=== PATIENT | male | born 1940 | race Caucasian/White ===

== ENCOUNTER 2019-07-06 14:09 | Outpatient (CLI) | payer MEDICARE, OTHER ==
--- NOTE | 2019-07-07 14:54 | Ultrasound Report ---
Reason: STAGE 3 KIDNEY DISEASE, URINE RETENTION Procedure Date: 07/06/2019 Accession Number: [id number] / [id number] Procedure: US - Retroperitoneal CPT Code: FULL RESULT: EXAM: RENAL ULTRASOUND EXAM DATE: 07/06/2019 03:38 PM. CLINICAL HISTORY: Stage 3 kidney disease, urine retention. COMPARISON: None. TECHNIQUE: Real-time scanning was performed with static images obtained. FINDINGS: Right Kidney: 10.6 x 5.5 x 5.8 cm. Echogenic renal cortex. No contour deforming mass, stones or hydronephrosis.1.1 x 1 x 1.2 cm mid lateral right renal anechoic cyst. No wall irregularities, mural nodules or thickened septations. Left Kidney: 10.9 x 5.2 x 6.4 cm. Echogenic renal cortex. No contour deforming mass, stones or hydronephrosis. Bladder: Bilateral jets seen. The prevoid bladder volume was 32.1 cc. The postvoid bladder volume was 0 cc. Other: None. IMPRESSION: 1. No renal mass, stone or hydronephrosis. 2. Echogenic renal cortex noted. Findings are nonspecific but can be associated with chronic medical renal disease. Correlate clinically. 3. 1.1 x 1.0 x 1.2 cm anechoic right mid renal cyst. 4. Normal bladder. RADIA
== END 2019-07-06 14:10 | disposition home or self-care (01) ==
LOC: DI 14:09
PROVIDERS: ATTEND Internal Medicine Nephrology
DX: N28.1 Cyst of kidney, acquired (principal); N32.0 Bladder-neck obstruction; N18.3 Chronic kidney disease, stage 3 (moderate); I12.9 Hypertensive chronic kidney disease with stage 1 through stage 4 chronic kidney disease, or unspecified chronic kidney disease; E11.22 Type 2 diabetes mellitus with diabetic chronic kidney disease; E78.5 Hyperlipidemia, unspecified; I25.10 Atherosclerotic heart disease of native coronary artery without angina pectoris
CPT/HCPCS: 76770

== ENCOUNTER 2020-07-31 14:35 | Outpatient (CLI) | payer MEDICARE, OTHER ==
--- NOTE | 2020-07-31 17:03 | XRAY Report ---
PROCEDURE: Thoracic Spine 3 View INDICATIONS: LOW BACK PAIN TECHNIQUE: 3 views of the thoracic spine were acquired. COMPARISON: None. FINDINGS: Bones: No fractures or dislocations. Mild to moderate degenerative disc disease is seen along the t horacic spine but no compression fracture is found. No suspicious bony lesions. 12 pairs of ribs are noted, and appear intact where visualized. Soft tissues: No paravertebral stripe thickening. 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 Reviewed by: Mauricio Stewart MD on 07/31/2020 5:01 PM PDT Approved by: Mauricio Stewart MD on 07/31/2020 5:01 PM PDT Station ID: [id number]
--- NOTE | 2020-07-31 17:04 | XRAY Report ---
PROCEDURE: Lumbar Spine 2 View INDICATIONS: LOW BACK PAIN TECHNIQUE: 2 views of the lumbar spine were acquired. COMPARISON: Thoracic spine plain films same day reviewed.. FINDINGS: Bones: 5 [id number] vertebrae are present. There is mildly levoscoliotic bony alignment center ed at the L3 vertebral body. No vertebral body compression fractures. No suspicious bony lesions. At the thoracolumbar junction there is mild to moderate degenerative disc disease and through the mid dle third of the LS-spine and there is mild degenerative disc height reduction. It becomes moderate a s the lumbosacral junction is approached and facet osteoarthritis is moderately severe at L4-5 and L5 -S1 and mild to moderate more superiorly. Soft tissues: Overlying bowel gas pattern is normal. No suspicious soft tissue calcifications. IMPRESSION: The degenerative changes are most pronounced at the lower 2 levels of the lumbosacral sp ine in terms of spinal and foraminal stenosis with likelihood of significant nerve root impingement a nd spinal stenosis at L4-5 and especially L5-S1. No compression fracture found. Mild convex leftward scoliosis centered at L3. Reviewed by: Mauricio Stewart MD on 07/31/2020 5:03 PM PDT Approved by: Mauricio Stewart MD on 07/31/2020 5:03 PM PDT Station ID: [id number]
== END 2020-07-31 14:36 | disposition home or self-care (01) ==
LOC: DI 14:35
PROVIDERS: ATTEND Physician Assistant
DX: M51.34 Other intervertebral disc degeneration, thoracic region (principal); M51.35 Other intervertebral disc degeneration, thoracolumbar region; M51.36 Other intervertebral disc degeneration, lumbar region; M51.37 Other intervertebral disc degeneration, lumbosacral region; M47.816 Spondylosis without myelopathy or radiculopathy, lumbar region; M47.817 Spondylosis without myelopathy or radiculopathy, lumbosacral region; M48.07 Spinal stenosis, lumbosacral region
CPT/HCPCS: 72072; 72100

== ENCOUNTER 2020-12-02 17:44 | Inpatient (IN) | payer MEDICARE, OTHER ==
[2020-12-02] MEDS ORDERED: IPRATROPIUM/ALBUTEROL 3 ML NEB INH STA (18:12)
--- NOTE | 2020-12-02 18:14 | ED Physician Documentation ---
PD HPI CHEST PAIN - Stated complaint Stated Complaint: SOA - Chief complaint Chief Complaint: Resp - History obtained from History obtained from: Patient - Additional information Additional information: 80-year-old gentleman with history of COPD presents with about 3 days worth of shortness of breath, minimally productive, foamy cough, and low pulse oximetry at home. Lowest pulse oximetry today was 84%. He does not wear home oxygen. He also has a history of coronary disease but no history of CHF. No pedal edema. Does not seem to be better upright or supine. He has had bypass and stenting in the past. Review of Systems Ten Systems: 10 systems reviewed and negative Constitutional: denies: Fever, Chills Nose: denies: Rhinorrhea / runny nose, Congestion Cardiac: denies: Chest pain / pressure, Palpitations, Pedal edema Respiratory: reports: Dyspnea, Cough PD PAST MEDICAL HISTORY - Past Medical History Past Medical History: Yes - Present Medications Home Medications: Ambulatory Orders Medication Instructions Recorded Confirmed Aspirin [Adult Aspirin Regimen] 81 mg PO DAILY 06/06/20 12/02/20 Atorvastatin [Lipitor] 40 mg PO DAILY PM 06/06/20 12/02/20 Carvedilol [Coreg] 25 mg PO BID 06/06/20 12/02/20 Insulin Glargine [Lantus Solostar] 20 - 25 units SQ BID 06/06/20 12/02/20 Losartan [Cozaar] 50 mg PO BID 06/06/20 12/02/20 Cholecalciferol (Vitamin D3) 1,000 mcg PO BID 12/02/20 12/02/20 [Vitamin D3] Ergocalciferol (Vitamin D2) 50 mcg PO BID 12/02/20 12/02/20 [Vitamin D2] Tamsulosin [Flomax] 0.4 mg PO DAILY 12/02/20 12/02/20 - Allergies Allergies/Adverse Reactions: Allergies Allergy/AdvReac Type Severity Reaction Status Date / Time pneumococcal vaccine Allergy Anaphylaxis Verified 12/02/20 18:45 aspirin [From Percodan] AdvReac Hives Verified 12/02/20 18:45 oxycodone [From Percodan] AdvReac Hives Verified 12/02/20 18:45 PD ED PE NORMAL - Vitals Vital signs reviewed: Yes - General General: Alert and oriented X 3, No acute distress - HEENT HEENT: PERRL, EOMI - Neck Neck: Supple, no meningeal sign, No bony TTP - Cardiac Cardiac: RRR, No murmur - Respiratory Respiratory: Other (Mildly labored breathing but speaking in full sentences. Rhonchorous throughout without focal findings.) - Abdomen Abdomen: Non tender - Back Back: No CVA TTP, No spinal TTP - Derm Derm: Normal color, Warm and dry - Extremities Extremities: No edema, No calf tenderness / cord - Neuro Neuro: Alert and oriented X 3, Normal speech Results - Vitals Vitals: Vital Signs - 24 hr 12/02/20 12/02/20 12/02/20 17:45 18:21 18:25 Temperature 36.7 C Heart Rate 80 83 74 Respiratory 40 H 16 16 Rate Blood Pressure 123/103 H 157/97 H O2 Saturation 88 L 100 12/02/20 12/02/20 12/02/20 19:34 20:06 20:10 Temperature 36.9 C 36.9 C Heart Rate 81 89 89 Respiratory 22 20 20 Rate Blood Pressure 167/86 H 142/59 H 142/59 H O2 Saturation 98 98 98 12/02/20 20:40 Temperature 36.7 C Heart Rate 69 Respiratory 18 Rate Blood Pressure 136/70 H O2 Saturation 98 Oxygen O2 Source Nasal cannula Oxygen Flow Rate 2 - EKG (time done) 1800 Rate: Rate (enter#) (84) Rhythm: NSR, LAE [place]: Normal Intervals: RBBB (incomplete) QRS: Normal Ischemia: Normal ST segments - Labs Labs: Laboratory Tests 12/02/20 12/02/20 12/02/20 18:12 18:12 18:12 WBC 7.5 RBC 3.27 L Hgb 9.9 L Hct 32.9 L MCV 100.6 H MCH 30.3 MCHC 30.1 L RDW 16.8 H Plt Count 160 MPV 10.7 Neut # (Auto) 6.9 H Lymph # (Auto) 0.1 L [place] # (Auto) 0.3 Eos # (Auto) 0.0 Baso # (Auto) 0.0 Absolute Nucleated RBC 0.00 Nucleated RBC % 0.0 Sodium 135 Potassium 4.6 Chloride 102 Carbon Dioxide 27 Anion Gap 6.0 BUN 43 H Creatinine 1.5 H Estimated GFR (MDRD) 45 L Glucose 292 H Lactic Acid Calcium 8.4 L Total Bilirubin 0.9 AST 38 ALT 68 H Alkaline Phosphatase 67 Troponin I High Sens 157.8 H* B-Natriuretic Peptide Total Protein 6.1 L Albumin 3.2 Globulin 2.9 Albumin/Globulin Ratio 1.1 Lipase 21 L Nasal Adenovirus (PCR) Nasal B. parapertussis DNA (PCR) Nasal Coronavir 229E PCR Nasal Coronavir HKU1 PCR Nasal Coronavir NL63 PCR Nasal Coronavir OC43 PCR Nasal Enterovir/Rhinovir PCR Nasal Influenza B PCR Nasal Influenza A PCR Nasal Parainfluen 1 PCR Nasal Parainfluen 2 PCR Nasal Parainfluen 3 PCR Nasal Parainfluen 4 PCR Nasal RSV (PCR) Nasal B.pertussis DNA PCR Nasal C.pneumoniae (PCR) Kevin Human Metapneumo PCR Nasal M.pneumoniae (PCR) Nasal SARS-CoV-2 (PCR) 12/02/20 12/02/20 12/02/20 18:12 18:12 19:24 WBC RBC Hgb Hct MCV MCH MCHC RDW Plt Count MPV Neut # (Auto) Lymph # (Auto) [place] # (Auto) Eos # (Auto) Baso # (Auto) Absolute Nucleated RBC Nucleated RBC % Sodium Potassium Chloride Carbon Dioxide Anion Gap BUN Creatinine Estimated GFR (MDRD) Glucose Lactic Acid 0.9 Calcium Total Bilirubin AST ALT Alkaline Phosphatase Troponin I High Sens B-Natriuretic Peptide 2564 H Total Protein Albumin Globulin Albumin/Globulin Ratio Lipase Nasal Adenovirus (PCR) NOT DETECTED Nasal B. parapertussis DNA (PCR) NOT DETECTED Nasal Coronavir 229E PCR NOT DETECTED Nasal Coronavir HKU1 PCR NOT DETECTED Nasal Coronavir NL63 PCR NOT DETECTED Nasal Coronavir OC43 PCR NOT DETECTED Nasal Enterovir/Rhinovir PCR NOT DETECTED Nasal Influenza B PCR NOT DETECTED Nasal Influenza A PCR NOT DETECTED Nasal Parainfluen 1 PCR NOT DETECTED Nasal Parainfluen 2 PCR NOT DETECTED Nasal Parainfluen 3 PCR NOT DETECTED Nasal Parainfluen 4 PCR NOT DETECTED Nasal RSV (PCR) NOT DETECTED Nasal B.pertussis DNA PCR NOT DETECTED Nasal C.pneumoniae (PCR) NOT DETECTED Kevin Human Metapneumo PCR NOT DETECTED Nasal M.pneumoniae (PCR) NOT DETECTED Nasal SARS-CoV-2 (PCR) NOT DETECTED PD MEDICAL DECISION MAKING - ED course ED course: 80-year-old gentleman with history of COPD, coronary disease, diabetes presents with 3 days of productive cough, hypoxemia, rhonchorous breath sounds. Work-up demonstrates normal white count with lymphopenia, bilateral pneumonia, evidence of CHF. Troponin is high but no chest pain and nonischemic EKG. He was administered aspirin, Lasix, Rocephin and Zithromax after IV blood cultures. Also Solu-Medrol. He was feeling and looking better, but still had an oxygen requirement. was updated by phone. Bio fire surprisingly negative given the chest x-ray appearance and lymphopenia and a confirmatory PCR was also sent. Note that he is not allergic to aspirin, he is allergic to Percodan and somehow this crossed over so I did give him aspirin. Spoke with Dr. De La Cruz for admission at 9 PM. 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 Tiera Fernandes MD [facility] Provider Cardiology Heart and Vascular [facility] [address], [address] [place] [address]
[2020-12-02 18:35] LABS: BASOPHILS % (AUTO) 0.1 %; HGB - HEMOGLOBIN 9.9 g/dL (14.0-18.0); LYMPHOCYTES # (AUTO) 0.1 10^3/uL (1.5-3.5); LYMPHOCYTES % (AUTO) 1.5 %; MEAN CORPUSCULAR HEMOGLOBIN 30.3 pg (27.0-31.0); MEAN CORPUSCULAR HGB CONC 30.1 g/dL (32.0-36.0); MEAN CORPUSCULAR VOLUME 100.6 fL (80.0-94.0); MEAN PLATELET VOLUME 10.7 fL (7.4-11.4); MONOCYTES # (AUTO) 0.3 10^3/uL (0.0-1.0); NEUTROPHILS # (AUTO) 6.9 10^3/uL (1.5-6.6); NEUTROPHILS % (AUTO) 93.1 %; PLT - PLATELET COUNT 160 10^3/uL (130-450); RED BLOOD COUNT 3.27 10^6/uL (4.70-6.10); RED CELL DISTRIBUTION WIDTH 16.8 % (12.0-15.0); WHITE BLOOD COUNT 7.5 x10^3/uL (4.8-10.8)
[2020-12-02 18:47] LABS: ALBUMIN 3.2 g/dL (3.2-5.5); ALBUMIN/GLOBULIN RATIO 1.1 (1.0-2.2); BILIRUBIN,TOTAL 0.9 mg/dL (0.2-1.0); CALCIUM 8.4 mg/dL (8.5-10.3); CREATININE 1.5 mg/dL (0.6-1.2); TOTAL PROTEIN 6.1 g/dL (6.7-8.2)
--- NOTE | 2020-12-02 18:59 | XRAY Report ---
PROCEDURE: Chest 1 View X-Ray INDICATIONS: Chest pain TECHNIQUE: One view of the chest was acquired. COMPARISON: 06/11/2020. FINDINGS: Surgical changes and devices: Status post CABG procedure. Lungs and pleura: Patchy opacities noted in the lung bases bilaterally left greater than right concer caitlin for pneumonia. Small left-sided pleural effusion. Mediastinum: Mediastinal contours appear normal. Heart size is normal. Bones and chest wall: No suspicious bony lesions. Overlying soft tissues appear unremarkable. IMPRESSION: Bibasilar pneumonia. Reviewed by: Valentina Olivas MD, PhD on 12/02/2020 5:58 PM [facility] Approved by: Valentina Olivas MD, PhD on 12/02/2020 5:58 PM [facility] Station ID: [id number]
[2020-12-02] MEDS ORDERED: AZITHROMYCIN INJ 500 MG in SODIUM CHLORIDE 0.9% 250 ML IV STA (19:07)
[2020-12-02] MEDS ORDERED: cefTRIAXone 2 GM in SODIUM CHLORIDE 0.9% MINIBAG 100 ML IV STA (19:07)
[2020-12-02] MEDS ORDERED: FUROSEMIDE 40 MG/4 ML VIAL IVP STA (19:07)
[2020-12-02] MEDS ORDERED: cefTRIAXone 2 GM VIAL ONE (19:26)
[2020-12-02] MEDS ORDERED: NITROGLYCERIN 2% PASTE TOP STA (20:20)
[2020-12-02 20:29] LABS: C. PNEUMONIAE- RESP PCR PANEL NOT DETECTED
[2020-12-02] MEDS ORDERED: ASPIRIN CHEW 81 MG TABLET PO STA (20:50)
[2020-12-02] MEDS ORDERED: methylPREDNISolone SUCCINATE 125 MG/2 ML VIAL IVP STA (20:55)
[2020-12-02] MEDS ORDERED: ONDANSETRON 4 MG/2 ML VIAL IVP PRN (21:17)
[2020-12-02] MEDS ORDERED: ACETAMINOPHEN 325 MG TABLET PO PRN (21:17)
[2020-12-02] MEDS ORDERED: ALBUTEROL 1 PUFF INH PRN (21:38)
[2020-12-02] MEDS: INSULIN GLARGINE 300 UNIT/3 ML PEN SUBQ SCH (22:33)
[2020-12-02] MEDS: methylPREDNISolone SUCCINATE 40 MG/ML VIAL IVP SCH (22:35)
[2020-12-02] MEDS: ATORVASTATIN 40 MG TABLET PO SCH (22:35)
[2020-12-02] MEDS: carvediloL 12.5 MG TABLET PO SCH (22:35)
[2020-12-02] MEDS: FAMOTIDINE 20 MG TABLET PO SCH (22:35)
--- NOTE | 2020-12-02 23:43 | HISTORY & PHYSICAL EXAMINATION ---
DATE OF SERVICE: 12/02/2020 Physician: Vilma De La Cruz MD HISTORY OF PRESENT ILLNESS: This is a 80-year-old white male with a history of COPD, not on home oxygen, diabetes mellitus, which is insulin-dependent, coronary artery disease with prior CABG and stents, CKD with baseline creatinine 1.7. The patient presents with complaints of three days of shortness of breath at home and a cough with occasionally foamy sputum and today he noticed that his saturation on a home monitor was 84%. In the ER, he was noted to have a respiratory rate of 40 and his first saturation on room air in the ER was 88%. His workup in the ER is showing that he has extensive rhonchi on exam, troponin elevated at 157, BNP elevated at 2554, lymphopenia present and a normal white count of 7 and chest x-ray showing CHF, as well as bilateral patchy infiltrates at the bases. With this presentation, a COVID pneumonia was highly suspected, but the COVID BioFire test came back negative. The patient is being admitted to the hospitalist service, inpatient status on telemetry for new onset of CHF, COPD with exacerbation and community-acquired pneumonia, which could be COVID negative on the BioFire, but suspect he may have a COVID pneumonia. PAST MEDICAL HISTORY 1. CAD with CABG. 2. Insulin-dependent diabetes. 3. COPD. 4. CKD. ALLERGIES 1. PNEUMOCOCCAL VACCINE. 2. OXYCODONE, WHICH GAVE HIM HIVES. MEDICATIONS 1. Vitamin D3. 2. Vitamin D2 daily. 3. Insulin between 20 and 25 units subcutaneously b.i.d. 4. Losartan 50 mg b.i.d. 5. Aspirin 81 mg daily. 6. Lipitor 40 mg every night. 7. Carvedilol 25 mg b.i.d. 8. Flomax 0.4 mg daily. FAMILY HISTORY: Noncontributory. SOCIAL HISTORY: The patient does not smoke cigarettes, does not drink alcohol, there is no illicit drug use history. The patient lives with his . REVIEW OF SYSTEMS: There has been no chest pain, he denies palpitations or syncope or edema. There has been no fever at home. A comprehensive review of systems was performed and the pertinent positives are listed, the rest are negative. PHYSICAL EXAM GENERAL: A white male has mild respiratory distress now, improved since he has been in the ER with treatment that was given there. VITAL SIGNS: Blood pressure 147/84, pulse 65, afebrile, room air saturation was 80% and now it is 99% on 2 liters of O2 by nasal cannula. HEENT: Unremarkable. NECK: Positive JVD in a 30-degree upright angle. CHEST: Diffuse rhonchi anteriorly and posteriorly. HEART: Sounds are very distant because of the rhonchi. ABDOMEN: Soft, nontender. EXTREMITIES: No clubbing, cyanosis or edema. NEUROLOGIC: Grossly intact. LABORATORY DATA: Normal electrolytes. BUN is 43, creatinine 1.5, glucose 292. Lactic acid 0.9, normal. AST of 38, elevated ALT of 68. Normal alkaline phosphatase of 67. Normal lipase of 21. Troponin is 157. BNP 2564. White blood count 7.5 with low lymphocyte count of 0.1, hemoglobin is 9.9 with MCV elevated at 100 and RDW elevated at 16.8. The platelet count is normal at 160. No INR was done. No urinalysis is available yet and the BioFire was negative on all measures. IMAGING: Chest x-ray, bibasilar pneumonia, heart size is normal. EKG: Normal sinus rhythm, RSR prime present in V1 and V2 and poor R-wave progression. There is no old EKG available for comparison. IMPRESSION/DIAGNOSES 1. Acute respiratory failure with hypoxia. 2. New onset congestive heart failure. 3. Community-acquired pneumonia. 4. Chronic obstructive pulmonary disease with exacerbation. 5. Chronic kidney disease. 6. Elevated troponin. 7. History of coronary artery disease. 8. Insulin-dependent diabetes mellitus. 9. Lymphopenia, which makes COVID infection suspected. 10. Anemia. 11. BPH. PLAN: Admit the patient to inpatient status on the hospitalist service on telemetry. Begin treatment with IV b.i.d. Lasix at a 40 mg dose because of his chronic kidney disease. Follow I's and O's and daily weights. Follow electrolytes and magnesium daily. Cycle the troponins to evaluate for NSTEMI and follow his BNP daily as he diureses. Obtain an Echo to establish LV and RV contractility. Begin steroids for his COPD IV t.i.d. and while he is in respiratory isolation. Begin MDI inhaler q.4 hours p.r.n. wheezing. Begin treatment for pneumonia using IV Rocephin, but p.o. Zithromax (to decrease the amount of IV fluids he is getting while in heart failure). Because it is suspicious that he has COVID negative results, but findings that suggest he could have COVID pneumonia, a repeat test for COVID with PCR has been sent, a reference panel which returns in 48 hours. For this period of time, he will be kept in prophylactic infectious isolation precautions. Continue with his medication for blood pressure control, his insulin, order a diabetic diet, sliding scale insulin coverage for Accu-Cheks and check his A1c. Continue his medication of Flomax. Hold his losartan currently because of the creatinine, but this can be resumed if the creatinine remains stable. Continue his Lipitor and aspirin. DEEP VENOUS THROMBOSIS PROPHYLAXIS: TEDS, (SCDs are waking him up when they cycle and don't let him sleep). CODE STATUS: FULL CODE. ATTESTATION: Patient is expected to be discharged or transferred to another facility within 96 hours: Yes. cc: KEVIN Coffey TD: 12/02/2020 22:11 [facility]
[2020-12-03] MEDS ORDERED: diphenhydrAMINE 25 MG CAPSULE PO ONE (02:48)
[2020-12-03] MEDS: FUROSEMIDE 40 MG/4 ML VIAL IVP SCH ×2 (05:42→14:02)
[2020-12-03] MEDS: methylPREDNISolone SUCCINATE 40 MG/ML VIAL IVP SCH ×3 (05:42→22:15)
[2020-12-03] MEDS: SODIUM CHLORIDE FLUSH 0.9% 10 ML SYRINGE IVP SCH ×3 (05:42→16:42)
[2020-12-03] MEDS: SODIUM CHLORIDE FLUSH 0.9% 10 ML SYRINGE IVP PRN ×2 (05:43→14:02)
[2020-12-03 05:46] LABS: HGB - HEMOGLOBIN 9.4 g/dL (14.0-18.0); LYMPHOCYTES # (AUTO) 0.1 10^3/uL (1.5-3.5); LYMPHOCYTES % (AUTO) 2.2 %; MEAN CORPUSCULAR HEMOGLOBIN 30.8 pg (27.0-31.0); MEAN CORPUSCULAR HGB CONC 31.1 g/dL (32.0-36.0); MEAN PLATELET VOLUME 10.4 fL (7.4-11.4); MONOCYTES % (AUTO) 0.7 %; NEUTROPHILS # (AUTO) 5.3 10^3/uL (1.5-6.6); NEUTROPHILS % (AUTO) 96.2 %; PLT - PLATELET COUNT 157 10^3/uL (130-450); RED BLOOD COUNT 3.05 10^6/uL (4.70-6.10); RED CELL DISTRIBUTION WIDTH 16.5 % (12.0-15.0); WHITE BLOOD COUNT 5.5 x10^3/uL (4.8-10.8)
[2020-12-03 05:55] LABS: CALCIUM 8.1 mg/dL (8.5-10.3); CREATININE 1.5 mg/dL (0.6-1.2)
[2020-12-03] MEDS ORDERED: INSULIN ASPART 300 UNIT/3 ML PEN SUBQ SCH (08:00)
[2020-12-03] MEDS: AZITHROMYCIN 250 MG TABLET PO SCH (08:29)
[2020-12-03] MEDS: carvediloL 12.5 MG TABLET PO SCH ×2 (08:29→16:42)
[2020-12-03] MEDS: TAMSULOSIN 0.4 MG CAPSULE PO SCH (08:29)
[2020-12-03] MEDS: ASPIRIN EC 81 MG TABLET PO SCH (08:29)
[2020-12-03] MEDS: FAMOTIDINE 20 MG TABLET PO SCH ×2 (08:29→21:12)
[2020-12-03] MEDS: INSULIN GLARGINE 300 UNIT/3 ML PEN SUBQ SCH ×2 (08:30→21:13)
[2020-12-03] MEDS: HEPARIN 5,000 UNIT/ML VIAL SUBQ SCH ×2 (08:51→21:14)
[2020-12-03] MEDS: INSULIN ASPART 300 UNIT/3 ML PEN SUBQ SCH ×4 (13:00→21:14)
[2020-12-03 13:57] LABS: HEMOGLOBIN A1c% 6.7 % (4.27-6.07)
[2020-12-03] MEDS ORDERED: hydrALAZINE INJ 20 MG/ML VIAL IVP PRN (17:24)
--- NOTE | 2020-12-03 17:27 | PROVIDER PROGRESS NOTE ---
Assessment/Plan - Problem List (1) Acute respiratory failure with hypoxia Assessment/Plan: Patient reported he feels much better after treatment. He has a 93 to 94% sats on room air, He has no tachycardia or tachypnea now. We will continue treat patient for pneumonia, and COPD exacerbation plus for fluids overloaded likely from his CHF. initially patient COVID-19 test is negative, repeat COVID-19 test is pending (2) New onset of congestive heart failure Assessment/Plan: Patient has history of CAD, patient's BNP elevated to 2800, Patient has respiratory distress and O2 sat drop in the admission. We will do echo study for patient, We will continue diuretics for pt, Fluid restriction, daily weight, I&O's, line closer, Vital signs check. (3) Pneumonia Qualifiers: Pneumonia type: due to unspecified organism Laterality: bilateral Lung location: lower lobe of lung Qualified Code(s): J18.9 - Pneumonia, unspecified organism Assessment/Plan: Patient present respiratory distress with hypoxia, cough, Chest x-ray show bibasilar pneumonia. but the patient has no fever, no elevated WBC. After we give patient antibiotics and other treatments, patient feel much better, will continue antibiotics, Repeated COVID-19 test is pending, we will continue isolation precaution (4) COPD exacerbation Assessment/Plan: We will continue treated for COPD exacerbation, continue gradually wane off intravenous steroids, Continue DuoNeb. 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 Will continue home aspirin, statin, Coreg, Continue telemetry and vital signs monitor (7) Hx of coronary artery disease Assessment/Plan: Patient has history of CAD, but the patient denied acute chest pain, EKG does not indicated Ischemic change. Hemodynamic is stable. We will continue aspirin, statin, Coreg, Continue telemetry and vital signs monitor (8) Diabetes Assessment/Plan: Patient has A1c 6.7, we will continue home Lantus, sliding scale, because the patient is on intravenous steroid, we will add Novolog tid plus slide scale. Continue ACHS check glucose, continue hypoglycemia protocol (9) Anemia Assessment/Plan: Patient has hemoglobin 9.5, patient has chronic CKD, we will do anemia study and follow-up. Patient denies GI bleed. (10) BPH (benign prostatic hyperplasia) Assessment/Plan: Continue Flomax (11) Sleep apnea Assessment/Plan: Patient report he has sleep apnea, he takes CPAP in the home, because Patient's second COVID-19 test is pending, we will hold CPAP tonight and continue CPAP after COVID-19 test come back if negative. (12) HTN (hypertension) Assessment/Plan: Patient has elevated blood pressure, will resume home blood pressure medicine, and hydralazine as needed, Continue vital signs monitor - Current Meds Current Meds: Current Medications Generic Name Dose Route Start Last Admin Trade Name Freq PRN Reason Stop Dose Admin Acetaminophen 650 mg 12/02/20 21:17 12/03/20 13:50 Acetaminophen 325 Mg Tablet PO 650 mg Q4HR PRN Administration Pain or Fever > 38C (100.4F) Aspirin 81 mg 12/03/20 09:00 12/03/20 08:29 Aspirin Ec 81 Mg Tablet PO 81 mg DAILY DORA Administration Atorvastatin Calcium 40 mg 12/02/20 22:00 12/02/20 22:35 Atorvastatin 40 Mg Tablet PO 40 mg QPM DORA Administration Azithromycin 250 mg 12/03/20 09:00 12/03/20 08:29 Azithromycin 250 Mg Tablet PO 12/06/20 12:00 250 mg DAILY DORA Administration Carvedilol 25 mg 12/02/20 22:00 12/03/20 16:42 Carvedilol 12.5 Mg Tablet PO 25 mg BIDWM DORA Administration Famotidine 20 mg 12/02/20 22:00 12/03/20 08:29 Famotidine 20 Mg Tablet PO 20 mg BID DORA Administration Furosemide 40 mg 12/03/20 06:00 12/03/20 14:02 Furosemide 40 Mg/4 Ml Vial IVP 40 mg BIDDIURETIC DORA Administration Heparin Sodium (Porcine) 5,000 unit 12/03/20 09:00 12/03/20 08:51 Heparin 5,000 Unit/Ml Vial SUBQ 5,000 unit BID DORA Administration Insulin Aspart 2 - 10 unit 12/03/20 17:00 12/03/20 16:42 Insulin Aspart 300 Unit/3 Ml Pen SUBQ 6 unit 0800,1200,1700,2100 DORA Administration Protocol Insulin Glargine 14 unit 12/02/20 22:00 12/03/20 08:30 Insulin Glargine 300 Unit/3 Ml Pen SUBQ 14 unit BID DORA Administration Methylprednisolone 60 mg 12/03/20 14:00 12/03/20 14:01 Methylprednisolone Succinate 40 Mg/Ml Vial IVP 60 mg TID DORA Administration Sodium Chloride 10 ml 12/02/20 21:17 12/03/20 14:02 Sodium Chloride Flush 0.9% 10 Ml Syringe IVP 10 ml PRN PRN Administration NEEDED PER PROVIDER ORDERS Sodium Chloride 10 ml 12/03/20 01:00 12/03/20 16:42 Sodium Chloride Flush 0.9% 10 Ml Syringe IVP 10 ml 0100,0900,1700 DORA Administration Tamsulosin HCl 0.4 mg 12/03/20 09:00 12/03/20 08:29 Tamsulosin 0.4 Mg Capsule PO 0.4 mg DAILY DORA Administration - Lab Result Fish Bone Diagrams: 12/03/20 05:30 12/03/20 05:30 - Additional Planning My Orders: My Active Orders 12/03/20 08:41 Fluid Restriction [RC] ONCE 12/03/20 09:00 Heparin 5,000 unit SUBQ BID 12/03/20 11:07 Nutrition Consult [CONS] Routine 12/03/20 14:00 methylPREDNISolone SUCCINATE [SOLU-Medrol (40MG VIAL)] 60 mg IVP TID 12/03/20 17:24 Losartan [Cozaar] 50 mg PO BID hydrALAZINE INJ [Apresoline Inj] 10 mg IVP Q4H PRN Subjective - Subjective Patient Reports: Feeling Better Objective Vital Signs: Vital Signs - 24 hr 12/02/20 12/02/20 12/02/20 17:45 18:21 18:25 Temperature 36.7 C Heart Rate 80 83 74 Heart Rate [ Radial] Respiratory 40 H 16 16 Rate Blood Pressure 123/103 H 157/97 H Blood Pressure [Left Brachial artery] Blood Pressure [Right Brachial artery] O2 Saturation 88 L 100 12/02/20 12/02/20 12/02/20 19:34 20:06 20:10 Temperature 36.9 C 36.9 C Heart Rate 81 89 89 Heart Rate [ Radial] Respiratory 22 20 20 Rate Blood Pressure 167/86 H 142/59 H 142/59 H Blood Pressure [Left Brachial artery] Blood Pressure [Right Brachial artery] O2 Saturation 98 98 98 12/02/20 12/02/20 12/02/20 20:40 21:10 21:30 Temperature 36.7 C 36.8 C Heart Rate 69 96 75 Heart Rate [ Radial] Respiratory 18 20 21 Rate Blood Pressure 136/70 H 150/81 H 197/102 H Blood Pressure [Left Brachial artery] Blood Pressure [Right Brachial artery] O2 Saturation 98 98 99 12/02/20 12/02/20 12/02/20 21:53 22:16 23:32 Temperature 36.8 C 36.5 C 36.6 C Heart Rate 65 Heart Rate [ 71 63 Radial] Respiratory 17 20 Rate Blood Pressure 147/84 H Blood Pressure 151/90 H 150/65 H [Left Brachial artery] Blood Pressure [Right Brachial artery] O2 Saturation 100 99 97 12/03/20 12/03/20 12/03/20 03:00 08:00 09:02 Temperature 36.6 C 36.5 C Heart Rate Heart Rate [ 97 61 Radial] Respiratory 16 20 18 Rate Blood Pressure Blood Pressure [Left Brachial artery] Blood Pressure 157/74 H 159/62 H [Right Brachial artery] O2 Saturation 97 97 95 12/03/20 12/03/20 12:11 16:00 Temperature 36.5 C 36.5 C Heart Rate Heart Rate [ 68 75 Radial] Respiratory 20 19 Rate Blood Pressure Blood Pressure 192/78 H [Left Brachial artery] Blood Pressure 129/98 H [Right Brachial artery] O2 Saturation 94 93 Oxygen O2 Source Room air Oxygen Flow Rate 2 I&O (Last 24 Hrs): Intake and Output Totals x24h 12/01/20 12/02/20 12/03/20 23:59 23:59 23:59 Intake Total 350 970 Output Total 1450 1900 Balance -1100 -930 General: Alert, Oriented x3, Cooperative, No acute distress HEENT: Atraumatic, PERRLA Neck: Supple Lymphatic: no adenopathy Neuro: Alert, Non Focal, Oriented Times 3 Cardiovascular: Regular rate, Normal S1, Normal S2 Respiratory: Chest non-tender, No respiratory distress Abdomen: Normal bowel sounds, Soft, No tenderness Extremities: Normal pulses Skin: No breakdown - Results Results: Laboratory Results WBC 5.5 x10^3/uL (4.8-10.8) 12/03/20 05:30 RBC 3.05 10^6/uL (4.70-6.10) L 12/03/20 05:30 Hgb 9.4 g/dL (14.0-18.0) L 12/03/20 05:30 Hct 30.2 % (42.0-52.0) L 12/03/20 05:30 MCV 99.0 fL (80.0-94.0) H 12/03/20 05:30 MCH 30.8 pg (27.0-31.0) 12/03/20 05:30 MCHC 31.1 g/dL (32.0-36.0) L 12/03/20 05:30 RDW 16.5 % (12.0-15.0) H 12/03/20 05:30 Plt Count 157 10^3/uL (130-450) 12/03/20 05:30 MPV 10.4 fL (7.4-11.4) 12/03/20 05:30 Neut # (Auto) 5.3 10^3/uL (1.5-6.6) 12/03/20 05:30 Lymph # (Auto) 0.1 10^3/uL (1.5-3.5) L 12/03/20 05:30 [place] # (Auto) 0.0 10^3/uL (0.0-1.0) 12/03/20 05:30 Eos # (Auto) 0.0 10^3/uL (0.0-0.7) 12/03/20 05:30 Baso # (Auto) 0.0 10^3/uL (0.0-0.1) 12/03/20 05:30 Absolute Nucleated RBC 0.00 x10^3/uL 12/03/20 05:30 Nucleated RBC % 0.0 /100WBC 12/03/20 05:30 Sodium 134 mmol/L (135-145) L 12/03/20 05:30 Potassium 4.2 mmol/L (3.5-5.0) 12/03/20 05:30 Chloride 100 mmol/L (101-111) L 12/03/20 05:30 Carbon Dioxide 26 mmol/L (21-32) 12/03/20 05:30 Anion Gap 8.0 (6-13) 12/03/20 05:30 BUN 41 mg/dL (6-20) H 12/03/20 05:30 Creatinine 1.5 mg/dL (0.6-1.2) H 12/03/20 05:30 Estimated GFR (MDRD) 45 (>89) L 12/03/20 05:30 Glucose 199 mg/dL (70-100) H 12/03/20 05:30 POC Whole Bld Glucose 265 mg/dL (70 - 100) H 12/03/20 16:26 Estimat Average Glucose 146 mg/dL (70-100) H 12/03/20 05:30 Hemoglobin A1c % 6.7 % (4.27-6.07) H 12/03/20 05:30 Lactic Acid 0.9 mmol/L (0.5-2.2) 12/02/20 19:24 Calcium 8.1 mg/dL (8.5-10.3) L 12/03/20 05:30 Total Bilirubin 0.9 mg/dL (0.2-1.0) 12/02/20 18:12 AST 38 IU/L (10-42) 12/02/20 18:12 ALT 68 IU/L (10-60) H 12/02/20 18:12 Alkaline Phosphatase 67 IU/L (42-121) 12/02/20 18:12 Troponin I High Sens 166.2 ng/L (2.3-19.7) H* 12/03/20 05:30 B-Natriuretic Peptide 2837 pg/mL (5-100) H 12/03/20 05:30 Total Protein 6.1 g/dL (6.7-8.2) L 12/02/20 18:12 Albumin 3.2 g/dL (3.2-5.5) 12/02/20 18:12 Globulin 2.9 g/dL (2.1-4.2) 12/02/20 18:12 Albumin/Globulin Ratio 1.1 (1.0-2.2) 12/02/20 18:12 Lipase 21 U/L (22-51) L 12/02/20 18:12 Nasal Adenovirus (PCR) NOT DETECTED 12/02/20 18:12 Nasal B. parapertussis DNA (PCR) NOT DETECTED 12/02/20 18:12 Nasal Coronavir 229E PCR NOT DETECTED 12/02/20 18:12 Nasal Coronavir HKU1 PCR NOT DETECTED 12/02/20 18:12 Nasal Coronavir NL63 PCR NOT DETECTED 12/02/20 18:12 Nasal Coronavir OC43 PCR NOT DETECTED 12/02/20 18:12 Nasal Enterovir/Rhinovir PCR NOT DETECTED 12/02/20 18:12 Nasal Influenza B PCR NOT DETECTED 12/02/20 18:12 Nasal Influenza A PCR NOT DETECTED 12/02/20 18:12 Nasal Parainfluen 1 PCR NOT DETECTED 12/02/20 18:12 Nasal Parainfluen 2 PCR NOT DETECTED 12/02/20 18:12 Nasal Parainfluen 3 PCR NOT DETECTED 12/02/20 18:12 Nasal Parainfluen 4 PCR NOT DETECTED 12/02/20 18:12 Nasal RSV (PCR) NOT DETECTED 12/02/20 18:12 Nasal B.pertussis DNA PCR NOT DETECTED 12/02/20 18:12 Nasal C.pneumoniae (PCR) NOT DETECTED 12/02/20 18:12 Kevin Human Metapneumo PCR NOT DETECTED 12/02/20 18:12 Nasal M.pneumoniae (PCR) NOT DETECTED 12/02/20 18:12 Nasal SARS-CoV-2 (PCR) NOT DETECTED 12/02/20 18:12 ABX Reporting Has patient been on IV antibiotics over the past 48 hours?: Yes Current Medications - Current Medications Current Medications: Active Medications Acetaminophen (Acetaminophen 325 Mg Tablet) 650 mg PO Q4HR PRN PRN Reason: Pain or Fever > 38C (100.4F) Last Admin: 12/03/20 13:50 Dose: 650 mg Documented by: Albuterol (Albuterol 1 Puff) 2 puffs INH Q4H PRN PRN Reason: Wheezing Albuterol/Ipratropium (Ipratropium/Albuterol 3 Ml Neb) 3 ml INH RTQID PRN PRN Reason: Shortness of Air/Wheezing Aspirin (Aspirin Ec 81 Mg Tablet) 81 mg PO DAILY [facility] Last Admin: 12/03/20 08:29 Dose: 81 mg Documented by: Atorvastatin Calcium (Atorvastatin 40 Mg Tablet) 40 mg PO QPM DORA Last Admin: 12/02/20 22:35 Dose: 40 mg Documented by: Azithromycin (Azithromycin 250 Mg Tablet) 250 mg PO DAILY DORA Stop: 12/06/20 12:00 Last Admin: 12/03/20 08:29 Dose: 250 mg Documented by: Carvedilol (Carvedilol 12.5 Mg Tablet) 25 mg PO BIDWM [facility] Last Admin: 12/03/20 16:42 Dose: 25 mg Documented by: Famotidine (Famotidine 20 Mg Tablet) 20 mg PO BID [facility] Last Admin: 12/03/20 08:29 Dose: 20 mg Documented by: Furosemide (Furosemide 40 Mg/4 Ml Vial) 40 mg IVP BIDDIURETIC [facility] Last Admin: 12/03/20 14:02 Dose: 40 mg Documented by: Heparin Sodium (Porcine) (Heparin 5,000 Unit/Ml Vial) 5,000 unit SUBQ BID [facility] Last Admin: 12/03/20 08:51 Dose: 5,000 unit Documented by: Hydralazine HCl (Hydralazine Inj 20 Mg/Ml Vial) 10 mg IVP Q4H PRN PRN Reason: Hypertensive Emergency Ceftriaxone Sodium 2 gm/ (Sodium Chloride) 100 mls @ 200 mls/hr IV Q24H [facility] Insulin Aspart (Insulin Aspart 300 Unit/3 Ml Pen) 2 - 10 unit SUBQ 0800,1200,1700,2100 [facility]; Protocol Last Admin: 12/03/20 16:42 Dose: 6 unit Documented by: Insulin Aspart (Insulin Aspart 300 Unit/3 Ml Pen) 5 unit SUBQ TIDWM [facility]; Protocol Insulin Glargine (Insulin Glargine 300 Unit/3 Ml Pen) 14 unit SUBQ BID [facility] Last Admin: 12/03/20 08:30 Dose: 14 unit Documented by: Losartan Potassium (Losartan 50 Mg Tablet) 50 mg PO BID [facility] Methylprednisolone (Methylprednisolone Succinate 40 Mg/Ml Vial) 60 mg IVP TID [facility] Last Admin: 12/03/20 14:01 Dose: 60 mg Documented by: Ondansetron HCl (Ondansetron 4 Mg/2 Ml Vial) 4 mg IVP Q6HR PRN PRN Reason: Nausea / Vomiting Sodium Chloride (Sodium Chloride Flush 0.9% 10 Ml Syringe) 10 ml IVP PRN PRN PRN Reason: NEEDED PER PROVIDER ORDERS Last Admin: 12/03/20 14:02 Dose: 10 ml Documented by: Sodium Chloride (Sodium Chloride Flush 0.9% 10 Ml Syringe) 10 ml IVP 0100,0900,1700 [facility] Last Admin: 12/03/20 16:42 Dose: 10 ml Documented by: Tamsulosin HCl (Tamsulosin 0.4 Mg Capsule) 0.4 mg PO DAILY [facility] Last Admin: 12/03/20 08:29 Dose: 0.4 mg Documented by: Aspirin [Adult Aspirin Regimen] 81 mg PO DAILY 06/06/20 Atorvastatin [Lipitor] 40 mg PO DAILY PM 06/06/20 Carvedilol [Coreg] 25 mg PO BID 06/06/20 Insulin Glargine [Lantus Solostar] 20 - 25 units SQ BID 06/06/20 Losartan [Cozaar] 50 mg PO BID 06/06/20 Cholecalciferol (Vitamin D3) [Vitamin D3] 1,000 mcg PO BID 12/02/20 Ergocalciferol (Vitamin D2) [Vitamin D2] 50 mcg PO BID 12/02/20 Tamsulosin [Flomax] 0.4 mg PO DAILY 12/02/20
[2020-12-03] MEDS ORDERED: IPRATROPIUM/ALBUTEROL 3 ML NEB INH PRN (17:59)
[2020-12-03] MEDS: LOSARTAN 50 MG TABLET PO SCH ×2 (18:36→21:16)
[2020-12-03 18:42] LABS: ABSOLUTE RETICS # AUTO 0.087 10^6/uL (0.020-0.110); RED BLOOD COUNT 3.21 10^6/uL (4.70-6.10)
[2020-12-03 19:03] LABS: % IRON SATURATION 17 % (20-50); IRON 55 ug/dL (45-182); TOTAL IRON BINDING CAPACITY 328 ug/dL (250-450); TRANSFERRIN 234 mg/dL (180-329)
[2020-12-03] MEDS: cefTRIAXone 2 GM in SODIUM CHLORIDE 0.9% MINIBAG 100 ML IV SCH (19:18)
[2020-12-03 19:19] LABS: FERRITIN 156.2 ng/mL (23.9-336.2)
[2020-12-03] MEDS ORDERED: INSULIN GLARGINE 300 UNIT/3 ML PEN SUBQ SCH (21:00)
[2020-12-03] MEDS: ATORVASTATIN 40 MG TABLET PO SCH (21:12)
[2020-12-04] MEDS: SODIUM CHLORIDE FLUSH 0.9% 10 ML SYRINGE IVP SCH ×3 (01:01→16:49)
[2020-12-04] MEDS: BENZOCAINE/MENTHOL LOZENGE MM PRN ×2 (04:16→21:18)
[2020-12-04 05:33] LABS: BASOPHILS % (AUTO) 0.1 %; HGB - HEMOGLOBIN 9.8 g/dL (14.0-18.0); LYMPHOCYTES # (AUTO) 0.1 10^3/uL (1.5-3.5); LYMPHOCYTES % (AUTO) 1.3 %; MEAN CORPUSCULAR HEMOGLOBIN 30.3 pg (27.0-31.0); MEAN CORPUSCULAR HGB CONC 30.2 g/dL (32.0-36.0); MEAN CORPUSCULAR VOLUME 100.6 fL (80.0-94.0); MEAN PLATELET VOLUME 10.8 fL (7.4-11.4); MONOCYTES # (AUTO) 0.2 10^3/uL (0.0-1.0); MONOCYTES % (AUTO) 2.1 %; NEUTROPHILS # (AUTO) 9.4 10^3/uL (1.5-6.6); NEUTROPHILS % (AUTO) 95.9 %; PLT - PLATELET COUNT 172 10^3/uL (130-450); RED BLOOD COUNT 3.23 10^6/uL (4.70-6.10); RED CELL DISTRIBUTION WIDTH 16.4 % (12.0-15.0); WHITE BLOOD COUNT 9.8 x10^3/uL (4.8-10.8)
[2020-12-04 05:39] LABS: CALCIUM 8.3 mg/dL (8.5-10.3); CREATININE 1.6 mg/dL (0.6-1.2)
[2020-12-04] MEDS: methylPREDNISolone SUCCINATE 40 MG/ML VIAL IVP SCH ×3 (06:39→21:19)
[2020-12-04] MEDS: SODIUM CHLORIDE FLUSH 0.9% 10 ML SYRINGE IVP PRN (06:40)
[2020-12-04] MEDS: FUROSEMIDE 40 MG/4 ML VIAL IVP SCH (06:40)
[2020-12-04] MEDS: INSULIN ASPART 300 UNIT/3 ML PEN SUBQ SCH ×7 (10:24→21:10)
[2020-12-04] MEDS: INSULIN GLARGINE 300 UNIT/3 ML PEN SUBQ SCH ×2 (10:26→21:08)
[2020-12-04] MEDS: carvediloL 12.5 MG TABLET PO SCH ×2 (10:28→16:43)
[2020-12-04] MEDS: TAMSULOSIN 0.4 MG CAPSULE PO SCH (10:29)
[2020-12-04] MEDS: ASPIRIN EC 81 MG TABLET PO SCH (10:29)
[2020-12-04] MEDS: FAMOTIDINE 20 MG TABLET PO SCH ×2 (10:29→21:15)
[2020-12-04] MEDS: AZITHROMYCIN 250 MG TABLET PO SCH (10:30)
[2020-12-04] MEDS: LOSARTAN 50 MG TABLET PO SCH ×2 (10:30→21:15)
[2020-12-04] MEDS: HEPARIN 5,000 UNIT/ML VIAL SUBQ SCH ×2 (10:36→21:16)
[2020-12-04] MEDS: FUROSEMIDE 40 MG TABLET PO SCH (14:11)
--- NOTE | 2020-12-04 17:25 | PROVIDER PROGRESS NOTE ---
Assessment/Plan - Problem List (1) Acute respiratory failure with hypoxia Assessment/Plan: 12/04 Greatly improved, patient reported he feel better, patient has 96% sats on room air, Patient has no acute respiratory distress. We will continue treat new onset of CHF, COPD exacerbation, and pneumonia. Patient reported he feels much better after treatment. He has a 93 to 94% sats on room air, He has no tachycardia or tachypnea now. We will continue treat patient for pneumonia, and COPD exacerbation plus for fluids overloaded likely from his CHF. initially patient COVID-19 test is negative, repeat COVID-19 test is pending (2) New onset of congestive heart failure Assessment/Plan: 12/04 Echo show patient had 35 to 40% EF, With moderate to severe abnormal right side heart pressure with RVSP 67mmHg. Patient feels much better, his BNP reduce to 2000 from previous 2800. We will continue diuretics Lasix, coreg, aspirin, statin. Patient has history of CAD, patient's BNP elevated to 2800, Patient has respiratory distress and O2 sat drop in the admission. We will do echo study for patient, We will continue diuretics for pt, Fluid restriction, daily weight, I& O's, compliance monitor, Vital signs check. (3) Pneumonia Assessment/Plan: 12/04 Repeated COVID-19 test is also negative. Patient reported he feel much better, patient has a 96% sats on room air. We will continue treat pneumonia with antibiotics Patient present respiratory distress with hypoxia, cough, Chest x-ray show bibasilar pneumonia. but the patient has no fever, no elevated WBC. After we give patient antibiotics and other treatments, patient feel much better, will continue antibiotics, Repeated COVID-19 test is pending, we will continue isolation precaution (4) COPD exacerbation Assessment/Plan: 12/04 We will continue his intravenous of steroid and wane off dosage to treat COPD Exacerbation. Continue DuoNeb. We will continue treated for COPD exacerbation, continue gradually wane off intravenous steroids, Continue DuoNeb. (5) CKD (chronic kidney disease) Assessment/Plan: creatinine keep stable at 1.5, Patient is on diuretics and help improve kidney perfusion, We will continue medical laboratory manager (6) Elevated troponin Assessment/Plan: Patient denies any chest pain, patient had elevated troponin but value is flat, EKG show normal sinus rhythm Without ST variation or Ischemic change. Will continue home aspirin, statin, Coreg, Continue telemetry and vital signs monitor (7) Hx of coronary artery disease Assessment/Plan: Patient has history of CAD, but the patient denied acute chest pain, EKG does not indicated Ischemic change. Hemodynamic is stable. We will continue aspirin, statin, Coreg, Continue telemetry and vital signs monitor (8) Diabetes Assessment/Plan: Patient has A1c 6.7, we will continue home Lantus, sliding scale, because the patient is on intravenous steroid, we will add Novolog tid plus slide scale. Continue ACHS check glucose, continue hypoglycemia protocol (9) Anemia Assessment/Plan: Patient has hemoglobin 9.5, patient has chronic CKD, we will do anemia study and follow-up. Patient denies GI bleed. (10) BPH (benign prostatic hyperplasia) Assessment/Plan: Continue Flomax (11) Sleep apnea Assessment/Plan: Patient report he has sleep apnea, he takes CPAP in the home, because Patient's second COVID-19 test is pending, we will hold CPAP tonight and continue CPAP after COVID-19 test come back if negative. (12) HTN (hypertension) Assessment/Plan: Patient has elevated blood pressure, will resume home blood pressure medicine, and hydralazine as needed, Continue vital signs monitor (3) Pneumonia Qualifiers: Pneumonia type: due to unspecified organism Laterality: bilateral Lung location: lower lobe of lung Qualified Code(s): J18.9 - Pneumonia, unspecified organism - Current Meds Current Meds: Current Medications Generic Name Dose Route Start Last Admin Trade Name Freq PRN Reason Stop Dose Admin Acetaminophen 650 mg 12/02/20 21:17 12/03/20 13:50 Acetaminophen 325 Mg Tablet PO 650 mg Q4HR PRN Administration Pain or Fever > 38C (100.4F) Aspirin 81 mg 12/03/20 09:00 12/04/20 10:29 Aspirin Ec 81 Mg Tablet PO 81 mg DAILY DORA Administration Atorvastatin Calcium 40 mg 12/02/20 22:00 12/03/20 21:12 Atorvastatin 40 Mg Tablet PO 40 mg QPM DORA Administration Azithromycin 250 mg 12/03/20 09:00 12/04/20 10:30 Azithromycin 250 Mg Tablet PO 12/06/20 12:00 250 mg DAILY DORA Administration Carvedilol 25 mg 12/02/20 22:00 12/04/20 16:43 Carvedilol 12.5 Mg Tablet PO 25 mg BIDWM DORA Administration Famotidine 20 mg 12/02/20 22:00 12/04/20 10:29 Famotidine 20 Mg Tablet PO 20 mg BID DORA Administration Furosemide 40 mg 12/04/20 14:00 12/04/20 14:11 Furosemide 40 Mg Tablet PO 40 mg BIDDIURETIC DORA Administration Heparin Sodium (Porcine) 5,000 unit 12/03/20 09:00 12/04/20 10:36 Heparin 5,000 Unit/Ml Vial SUBQ 5,000 unit BID DORA Administration Ceftriaxone Sodium 2 gm/ 100 mls @ 200 mls/hr 12/03/20 19:00 12/03/20 19:50 Sodium Chloride IV Infused Q24H DORA Infusion Insulin Aspart 2 - 10 unit 12/03/20 17:00 12/04/20 16:48 Insulin Aspart 300 Unit/3 Ml Pen SUBQ 2 unit 0800,1200,1700,2100 DORA Administration Protocol Insulin Aspart 5 unit 12/03/20 18:00 12/04/20 16:48 Insulin Aspart 300 Unit/3 Ml Pen SUBQ 5 unit TIDWM DORA Administration Protocol Insulin Glargine 14 unit 12/02/20 22:00 12/04/20 10:26 Insulin Glargine 300 Unit/3 Ml Pen SUBQ 14 unit BID DORA Administration Losartan Potassium 50 mg 12/03/20 17:24 12/04/20 10:30 Losartan 50 Mg Tablet PO 50 mg BID DORA Administration Methylprednisolone 60 mg 12/03/20 14:00 12/04/20 14:11 Methylprednisolone Succinate 40 Mg/Ml Vial IVP 60 mg TID DORA Administration Sodium Chloride 10 ml 12/02/20 21:17 12/04/20 06:40 Sodium Chloride Flush 0.9% 10 Ml Syringe IVP 10 ml PRN PRN Administration NEEDED PER PROVIDER ORDERS Sodium Chloride 10 ml 12/03/20 01:00 12/04/20 16:49 Sodium Chloride Flush 0.9% 10 Ml Syringe IVP 10 ml 0100,0900,1700 DORA Administration Tamsulosin HCl 0.4 mg 12/03/20 09:00 12/04/20 10:29 Tamsulosin 0.4 Mg Capsule PO 0.4 mg DAILY DORA Administration Throat Lozenges 1 lozenge 12/04/20 03:32 12/04/20 04:16 Benzocaine/Menthol Lozenge MM 1 lozenge Q2HR PRN Administration Throat pain - Lab Result Fish Bone Diagrams: 12/04/20 04:37 12/04/20 04:37 - Additional Planning My Orders: My Active Orders 12/03/20 17:24 Losartan [Cozaar] 50 mg PO BID hydrALAZINE INJ [Apresoline Inj] 10 mg IVP Q4H PRN 12/03/20 17:38 CPAP [BIPAP/CPAP - RT] [RC] .Q2H 12/03/20 17:59 Resp Teach Nebulizer/MDI [RC] .ONCE Ipratropium/Albuterol [Duoneb] 3 ml INH RTQID PRN 12/03/20 18:00 Insulin Aspart [NovoLOG] 5 unit SUBQ TIDWM 12/04/20 14:00 Furosemide [Lasix] 40 mg PO BIDDIURETIC 12/04/20 19:00 polyethylene glycoL 3350 [Miralax] 17 gm PO DAILY Subjective - Subjective Patient Reports: Feeling Better Objective Vital Signs: Vital Signs - 24 hr 12/03/20 12/03/20 12/04/20 18:13 20:10 00:55 Temperature 36.5 C 36.5 C Heart Rate 70 Heart Rate [ 65 69 Radial] Respiratory 18 18 Rate Blood Pressure 145/67 H [Left Brachial artery] Blood Pressure 141/67 H [Right Brachial artery] O2 Saturation 95 98 12/04/20 12/04/20 12/04/20 04:19 09:30 14:39 Temperature 36.4 C L 36.3 C L 36.4 C L Heart Rate Heart Rate [ 75 74 65 Radial] Respiratory 18 18 16 Rate Blood Pressure 123/80 [Left Brachial artery] Blood Pressure 153/75 H 106/68 [Right Brachial artery] O2 Saturation 98 92 96 12/04/20 16:00 Temperature 36.5 C Heart Rate Heart Rate [ 76 Radial] Respiratory 18 Rate Blood Pressure 126/98 H [Left Brachial artery] Blood Pressure [Right Brachial artery] O2 Saturation 96 Oxygen O2 Source Room air Oxygen Flow Rate 2 I&O (Last 24 Hrs): Intake and Output Totals x24h 12/02/20 12/03/20 12/04/20 23:59 23:59 23:59 Intake Total 350 1310 540 Output Total 1450 1900 5945 Balance -1100 -590 -1285 General: Alert, Oriented x3, Cooperative, No acute distress HEENT: Atraumatic, PERRLA Neck: Supple Lymphatic: no adenopathy Neuro: Alert, Non Focal, Oriented Times 3 Cardiovascular: Regular rate, Normal S1, Normal S2 Respiratory: Chest non-tender, No respiratory distress Abdomen: Normal bowel sounds, Soft, No tenderness Extremities: Normal pulses Skin: No breakdown - Results Results: Laboratory Results WBC 9.8 x10^3/uL (4.8-10.8) 12/04/20 04:37 RBC 3.23 10^6/uL (4.70-6.10) L 12/04/20 04:37 Hgb 9.8 g/dL (14.0-18.0) L 12/04/20 04:37 Hct 32.5 % (42.0-52.0) L 12/04/20 04:37 MCV 100.6 fL (80.0-94.0) H 12/04/20 04:37 MCH 30.3 pg (27.0-31.0) 12/04/20 04:37 MCHC 30.2 g/dL (32.0-36.0) L 12/04/20 04:37 RDW 16.4 % (12.0-15.0) H 12/04/20 04:37 Plt Count 172 10^3/uL (130-450) 12/04/20 04:37 MPV 10.8 fL (7.4-11.4) 12/04/20 04:37 Reticulocyte % (Auto) 2.72 % (0.5-2.3) H 12/03/20 18:35 Neut # (Auto) 9.4 10^3/uL (1.5-6.6) H 12/04/20 04:37 Lymph # (Auto) 0.1 10^3/uL (1.5-3.5) L 12/04/20 04:37 [place] # (Auto) 0.2 10^3/uL (0.0-1.0) 12/04/20 04:37 Eos # (Auto) 0.0 10^3/uL (0.0-0.7) 12/04/20 04:37 Baso # (Auto) 0.0 10^3/uL (0.0-0.1) 12/04/20 04:37 Absolute Nucleated RBC 0.00 x10^3/uL 12/04/20 04:37 Nucleated RBC % 0.0 /100WBC 12/04/20 04:37 Absolute Retic 0.087 10^6/uL (0.020-0.110) 12/03/20 18:35 Sodium 134 mmol/L (135-145) L 12/04/20 04:37 Potassium 4.3 mmol/L (3.5-5.0) 12/04/20 04:37 Chloride 97 mmol/L (101-111) L 12/04/20 04:37 Carbon Dioxide 28 mmol/L (21-32) 12/04/20 04:37 Anion Gap 9.0 (6-13) 12/04/20 04:37 BUN 51 mg/dL (6-20) H 12/04/20 04:37 Creatinine 1.6 mg/dL (0.6-1.2) H 12/04/20 04:37 Estimated GFR (MDRD) 42 (>89) L 12/04/20 04:37 Glucose 168 mg/dL (70-100) H 12/04/20 04:37 POC Whole Bld Glucose 178 mg/dL (70 - 100) H 12/04/20 16:43 Estimat Average Glucose 146 mg/dL (70-100) H 12/03/20 05:30 Hemoglobin A1c % 6.7 % (4.27-6.07) H 12/03/20 05:30 Lactic Acid 0.9 mmol/L (0.5-2.2) 12/02/20 19:24 Calcium 8.3 mg/dL (8.5-10.3) L 12/04/20 04:37 Iron 55 ug/dL (45-182) 12/03/20 18:35 TIBC 328 ug/dL (250-450) 12/03/20 18:35 % Saturation 17 % (20-50) L 12/03/20 18:35 Transferrin 234 mg/dL (180-329) 12/03/20 18:35 Ferritin 156.2 ng/mL (23.9-336.2) 12/03/20 18:35 Total Bilirubin 0.9 mg/dL (0.2-1.0) 12/02/20 18:12 AST 38 IU/L (10-42) 12/02/20 18:12 ALT 68 IU/L (10-60) H 12/02/20 18:12 Alkaline Phosphatase 67 IU/L (42-121) 12/02/20 18:12 Lactate Dehydrogenase 189 IU/L (91-225) 12/03/20 18:35 Troponin I High Sens 166.2 ng/L (2.3-19.7) H* 12/03/20 05:30 B-Natriuretic Peptide 2059 pg/mL (5-100) H 12/04/20 04:37 Total Protein 6.1 g/dL (6.7-8.2) L 12/02/20 18:12 Albumin 3.2 g/dL (3.2-5.5) 12/02/20 18:12 Globulin 2.9 g/dL (2.1-4.2) 12/02/20 18:12 Albumin/Globulin Ratio 1.1 (1.0-2.2) 12/02/20 18:12 Lipase 21 U/L (22-51) L 12/02/20 18:12 Vitamin B12 233 pg/mL (180-914) 12/03/20 18:35 Nasal Adenovirus (PCR) NOT DETECTED 12/02/20 18:12 Nasal B. parapertussis DNA (PCR) NOT DETECTED 12/02/20 18:12 Nasal Coronavir 229E PCR NOT DETECTED 12/02/20 18:12 Nasal Coronavir HKU1 PCR NOT DETECTED 12/02/20 18:12 Nasal Coronavir NL63 PCR NOT DETECTED 12/02/20 18:12 Nasal Coronavir OC43 PCR NOT DETECTED 12/02/20 18:12 Nasal Enterovir/Rhinovir PCR NOT DETECTED 12/02/20 18:12 Nasal Influenza B PCR NOT DETECTED 12/02/20 18:12 Nasal Influenza A PCR NOT DETECTED 12/02/20 18:12 Nasal Parainfluen 1 PCR NOT DETECTED 12/02/20 18:12 Nasal Parainfluen 2 PCR NOT DETECTED 12/02/20 18:12 Nasal Parainfluen 3 PCR NOT DETECTED 12/02/20 18:12 Nasal Parainfluen 4 PCR NOT DETECTED 12/02/20 18:12 Nasal RSV (PCR) NOT DETECTED 12/02/20 18:12 Nasal B.pertussis DNA PCR NOT DETECTED 12/02/20 18:12 Nasal C.pneumoniae (PCR) NOT DETECTED 12/02/20 18:12 Kevin Human Metapneumo PCR NOT DETECTED 12/02/20 18:12 Nasal M.pneumoniae (PCR) NOT DETECTED 12/02/20 18:12 Nasal SARS-CoV-2 (PCR) NOT DETECTED 12/02/20 18:12 Coronavirus (PCR) NEGATIVE 12/02/20 21:05 ABX Reporting Has patient been on IV antibiotics over the past 48 hours?: Yes Current Medications - Current Medications Current Medications: Active Medications Acetaminophen (Acetaminophen 325 Mg Tablet) 650 mg PO Q4HR PRN PRN Reason: Pain or Fever > 38C (100.4F) Last Admin: 12/03/20 13:50 Dose: 650 mg Documented by: Albuterol (Albuterol 1 Puff) 2 puffs INH Q4H PRN PRN Reason: Wheezing Albuterol/Ipratropium (Ipratropium/Albuterol 3 Ml Neb) 3 ml INH RTQID PRN PRN Reason: Shortness of Air/Wheezing Aspirin (Aspirin Ec 81 Mg Tablet) 81 mg PO DAILY [facility] Last Admin: 12/04/20 10:29 Dose: 81 mg Documented by: Atorvastatin Calcium (Atorvastatin 40 Mg Tablet) 40 mg PO QPM [facility] Last Admin: 12/03/20 21:12 Dose: 40 mg Documented by: Azithromycin (Azithromycin 250 Mg Tablet) 250 mg PO DAILY DORA Stop: 12/06/20 12:00 Last Admin: 12/04/20 10:30 Dose: 250 mg Documented by: Carvedilol (Carvedilol 12.5 Mg Tablet) 25 mg PO BIDWM [facility] Last Admin: 12/04/20 16:43 Dose: 25 mg Documented by: Famotidine (Famotidine 20 Mg Tablet) 20 mg PO BID [facility] Last Admin: 12/04/20 10:29 Dose: 20 mg Documented by: Furosemide (Furosemide 40 Mg Tablet) 40 mg PO BIDDIURETIC [facility] Last Admin: 12/04/20 14:11 Dose: 40 mg Documented by: Heparin Sodium (Porcine) (Heparin 5,000 Unit/Ml Vial) 5,000 unit SUBQ BID [facility] Last Admin: 12/04/20 10:36 Dose: 5,000 unit Documented by: Hydralazine HCl (Hydralazine Inj 20 Mg/Ml Vial) 10 mg IVP Q4H PRN PRN Reason: Hypertensive Emergency Ceftriaxone Sodium 2 gm/ (Sodium Chloride) 100 mls @ 200 mls/hr IV Q24H [facility] Last Infusion: 12/03/20 19:50 Dose: Infused Documented by: Insulin Aspart (Insulin Aspart 300 Unit/3 Ml Pen) 2 - 10 unit SUBQ 0800,1200,1700,2100 [facility]; Protocol Last Admin: 12/04/20 16:48 Dose: 2 unit Documented by: Insulin Aspart (Insulin Aspart 300 Unit/3 Ml Pen) 5 unit SUBQ TIDWM [facility]; Protocol Last Admin: 12/04/20 16:48 Dose: 5 unit Documented by: Insulin Glargine (Insulin Glargine 300 Unit/3 Ml Pen) 14 unit SUBQ BID [facility] Last Admin: 12/04/20 10:26 Dose: 14 unit Documented by: Losartan Potassium (Losartan 50 Mg Tablet) 50 mg PO BID [facility] Last Admin: 12/04/20 10:30 Dose: 50 mg Documented by: Methylprednisolone (Methylprednisolone Succinate 40 Mg/Ml Vial) 40 mg IVP TID [facility] Ondansetron HCl (Ondansetron 4 Mg/2 Ml Vial) 4 mg IVP Q6HR PRN PRN Reason: Nausea / Vomiting Polyethylene Glycol (Polyethylene Glycol 3350 17 Gm Packet) 17 gm PO DAILY [facility] Saccharomyces Boulardii (Saccharomyces Boulardii 250 Mg Capsule) 250 mg PO BIDWM [facility] Sodium Chloride (Sodium Chloride Flush 0.9% 10 Ml Syringe) 10 ml IVP PRN PRN PRN Reason: NEEDED PER PROVIDER ORDERS Last Admin: 12/04/20 06:40 Dose: 10 ml Documented by: Sodium Chloride (Sodium Chloride Flush 0.9% 10 Ml Syringe) 10 ml IVP 0100,0900, 1700 [facility] Last Admin: 12/04/20 16:49 Dose: 10 ml Documented by: Tamsulosin HCl (Tamsulosin 0.4 Mg Capsule) 0.4 mg PO DAILY [facility] Last Admin: 12/04/20 10:29 Dose: 0.4 mg Documented by: Throat Lozenges (Benzocaine/Menthol Lozenge) 1 lozenge MM Q2HR PRN PRN Reason: Throat pain Last Admin: 12/04/20 04:16 Dose: 1 lozenge Documented by: Aspirin [Adult Aspirin Regimen] 81 mg PO DAILY 06/06/20 Atorvastatin [Lipitor] 40 mg PO DAILY PM 06/06/20 Carvedilol [Coreg] 25 mg PO BID 06/06/20 Insulin Glargine [Lantus Solostar] 20 - 25 units SQ BID 06/06/20 Losartan [Cozaar] 50 mg PO BID 06/06/20 Cholecalciferol (Vitamin D3) [Vitamin D3] 1,000 mcg PO BID 12/02/20 Ergocalciferol (Vitamin D2) [Vitamin D2] 50 mcg PO BID 12/02/20 Tamsulosin [Flomax] 0.4 mg PO DAILY 12/02/20
[2020-12-04] MEDS: SACCHAROMYCES BOULARDII 250 MG CAPSULE PO SCH (18:36)
[2020-12-04] MEDS: polyethylene glycoL 3350 17 GM PACKET PO SCH (18:36)
[2020-12-04] MEDS: cefTRIAXone 2 GM in SODIUM CHLORIDE 0.9% MINIBAG 100 ML IV SCH (18:37)
[2020-12-04] MEDS: ATORVASTATIN 40 MG TABLET PO SCH (21:15)
[2020-12-05] MEDS: SODIUM CHLORIDE FLUSH 0.9% 10 ML SYRINGE IVP SCH ×2 (00:21→08:15)
[2020-12-05] MEDS: methylPREDNISolone SUCCINATE 40 MG/ML VIAL IVP SCH (05:29)
[2020-12-05] MEDS: FUROSEMIDE 40 MG TABLET PO SCH (05:29)
[2020-12-05 05:40] LABS: HGB - HEMOGLOBIN 9.6 g/dL (14.0-18.0); LYMPHOCYTES # (AUTO) 0.1 10^3/uL (1.5-3.5); LYMPHOCYTES % (AUTO) 1.1 %; MEAN CORPUSCULAR HEMOGLOBIN 30.4 pg (27.0-31.0); MEAN CORPUSCULAR HGB CONC 31.3 g/dL (32.0-36.0); MEAN CORPUSCULAR VOLUME 97.2 fL (80.0-94.0); MONOCYTES # (AUTO) 0.3 10^3/uL (0.0-1.0); NEUTROPHILS # (AUTO) 8.3 10^3/uL (1.5-6.6); NEUTROPHILS % (AUTO) 95.6 %; PLT - PLATELET COUNT 151 10^3/uL (130-450); RED BLOOD COUNT 3.16 10^6/uL (4.70-6.10); RED CELL DISTRIBUTION WIDTH 16.2 % (12.0-15.0); WHITE BLOOD COUNT 8.7 x10^3/uL (4.8-10.8)
[2020-12-05 05:51] LABS: CREATININE 1.7 mg/dL (0.6-1.2)
[2020-12-05] MEDS: INSULIN ASPART 300 UNIT/3 ML PEN SUBQ SCH ×4 (07:51→11:51)
[2020-12-05 08:13] VITALS: BP 149/73
[2020-12-05] MEDS: LOSARTAN 50 MG TABLET PO SCH (08:14)
[2020-12-05] MEDS: FAMOTIDINE 20 MG TABLET PO SCH (08:14)
[2020-12-05] MEDS: ASPIRIN EC 81 MG TABLET PO SCH (08:14)
[2020-12-05] MEDS: SACCHAROMYCES BOULARDII 250 MG CAPSULE PO SCH (08:14)
[2020-12-05] MEDS: AZITHROMYCIN 250 MG TABLET PO SCH (08:14)
[2020-12-05] MEDS: carvediloL 12.5 MG TABLET PO SCH (08:14)
[2020-12-05] MEDS: HEPARIN 5,000 UNIT/ML VIAL SUBQ SCH (08:14)
[2020-12-05] MEDS: TAMSULOSIN 0.4 MG CAPSULE PO SCH (08:14)
[2020-12-05] MEDS: polyethylene glycoL 3350 17 GM PACKET PO SCH (08:15)
[2020-12-05] MEDS: INSULIN GLARGINE 300 UNIT/3 ML PEN SUBQ SCH (08:15)
--- NOTE | 2020-12-05 10:39 | Discharge Plan ---
Discharge Plan Problem Reviewed?: Yes Disposition: Home, Self Care Condition: Stable Prescriptions: Albuterol Sulf [Ventolin Hfa Inhaler] 1 - 2 puffs INH Q4HR PRN #1 inhaler PRN Reason: Shortness Of Air/Wheezing Ipratropium [Atrovent] 1 puffs INH Q6H PRN #1 inhaler PRN Reason: Shortness Of Air/Wheezing cefUROXime axetiL [Ceftin] 250 mg PO Q12H #10 tablet predniSONE [Deltasone] 10 mg PO [id number] #16 tab Saccharomyces Boulardii [Florastor] 250 mg PO BIDWM #10 capsule Furosemide [Lasix] 40 mg PO DAILY #30 tablet Azithromycin [Zithromax] 250 mg PO DAILY #3 tablet Diet: Diabetic Activity Restrictions: Activity as Tolerated Shower Restrictions: No (fall precaution) Instruction Topics: Cefuroxime tablets, Azithromycin tablets, Prednisone tablets, Furosemide tablets, Heart Failure Meds Control, Heart Failure, Heart Failure Warning Signs, COPD, Pneumonia, Heart Failure Coping, Albuterol inhalation aerosol, Albuterol Ipratropium inhalation aerosol Health Concerns: CHF/congestive heart failure, pneumonia, COPD, CKD Plan of Treatment: Your ECHO show you have both systolic and diastolic congestive heart failure, EF 35%, and your were found to have fluid overloaded in the admission, you are prescribed Lasix, resume your home meds as well. Followup with cover creaser as out-pt Your Covid 19 test was negative. you was found to have pneumonia, you are prescribed antibiotics to continue finish the treatment course. you are prescribed Albuterol, Atrovent INH inhaler as needed, and low dosage of Prednisone for your COPD control. Continue your home diabetes meds as schedule, continue followup with your branch sales and service representative as the schedule. Care Goals: stabilization and improvement of your medical conditions Assessment: discussed the care plan with you, answered your questions, you understood and agreed. Additional Instructions or Follow Up instructions: You may follow-up with your PCP in 1 week, you may follow-up your cover creaser and branch sales and service representative as outpatient. Should your symptoms return or worsen, you may present to ER and call 911 for help. Please copy this record to his cover creaser, Dr. Tiera Fernandes MD [facility] Provider Cardiology Heart and Vascular [facility] [address] , [address] [place] [address] Follow-Up Care: [facility] - CHF Classes No Smoking: If you smoke, Please STOP! Call for help. Follow-up with: Landy Anderson PA [Primary Care Provider] -
--- NOTE | 2020-12-05 11:21 | DISCHARGE SUMMARY ---
Discharge Summary Admit Date: 12/02/20 Discharge Date: 12/05/20 Discharging Provider: Daniel Mcmahon Primary Care Provider: Landy Luu Condition at Discharge: Stable Discharge Disposition: Home, Self Care Discharge Facility Name: home - DIAGNOSES Discharge Diagnoses with Status of Each Condition: (1) Acute respiratory failure with hypoxia Resolved. Patient has 98% sats on room air, respiratory rate is 16. Patient has no respiratory distress at all in the discharge. (2) New onset of congestive heart failure Echo show patient had 35 to 40% EF, With moderate to severe abnormal right side heart pressure with RVSP 67mmHg. After treatment in hospital, Patient feels much better, his BNP reduce Significantly. Patient is prescribed diuretics Lasix,Continue home medication. Referral to cardiac wellness in [facility] clinic, Follow-up with housing relocation as outpatient (3) Pneumonia Repeated COVID-19 test is also negative. Patient has 98% sats on room air, respiratory rate is 16. Patient has no respiratory distress at all in the discharge. Patient is prescribed antibiotics to finish the treatment course. (4) COPD exacerbation Resolved/stable. Patient is prescribed a short term of Prednisone, Albuterol and Atrovent inhaler as needed (5) CKD (chronic kidney disease) stable, Patient follow-up with Dr. Jay shake cutter (6) Elevated troponin stable, pt has no acute Myocardial ischemia (7) Hx of coronary artery disease Stable (8) Diabetes Stable (9) Anemia stable (10) BPH (benign prostatic hyperplasia) stable, Continue Flomax (11) Sleep apnea stable (12) HTN (hypertension) stable - HPI History of Present Illness: This is a 80 years old male with a medical history significant for COPD not on h ome oxygen, diabetes, CAD with CABG and stents, CKD with baseline creatinine 1.7, Who presented ER complaining 3 days of shortness of breathing in the home with cough with sputum. He found his O2 sats in the home was 84%. In ER he was found to have respiratory rate 40 and first oxygen saturation was 88% on room air. Chest x-ray show bibasilar pneumonia, And bilaterally patchy infiltrate At the bases. BNP elevated at 2500. Initial COVID-19 test was negative, repeat COVID-19 test is pending. - HOSPITAL COURSE Hospital Course: Patient was admitted for shortness of breathing and cough. Patient was found to have pneumonia, COPD exacerbation, new onset CHF. Patient was treated with antibiotics, intravenous for steroid, breathing treatment. Patient was also treated with diuretics Lasix. After treatment, patient become hemodynamic stable, has no respiratory distress, has 98% sat on room air. - ALLERGIES Allergies/Adverse Reactions: Allergies Allergy/AdvReac Type Severity Reaction Status Date / Time pneumococcal vaccine Allergy Anaphylaxis Verified 12/02/20 18:45 oxycodone [From Percodan] AdvReac Hives Verified 12/02/20 18:45 - MEDICATIONS Home Medications: Ambulatory Orders Medication Instructions Recorded Confirmed Aspirin [Adult Aspirin Regimen] 81 mg PO DAILY 06/06/20 12/02/20 Atorvastatin [Lipitor] 40 mg PO DAILY PM 06/06/20 12/02/20 Carvedilol [Coreg] 25 mg PO BID 06/06/20 12/02/20 Insulin Glargine [Lantus Solostar] 20 - 25 units SQ BID 06/06/20 12/02/20 Losartan [Cozaar] 50 mg PO BID 06/06/20 12/02/20 Cholecalciferol (Vitamin D3) 1,000 mcg PO BID 12/02/20 12/02/20 [Vitamin D3] Ergocalciferol (Vitamin D2) 50 mcg PO BID 12/02/20 12/02/20 [Vitamin D2] Tamsulosin [Flomax] 0.4 mg PO DAILY 12/02/20 12/02/20 Albuterol Sulf [Ventolin Hfa 1 - 2 puffs INH Q4HR PRN #1 inhaler 12/05/20 Inhaler] Azithromycin [Zithromax] 250 mg PO DAILY #3 tablet 12/05/20 Furosemide [Lasix] 40 mg PO DAILY #30 tablet 12/05/20 Ipratropium [Atrovent] 1 puffs INH Q6H PRN #1 inhaler 12/05/20 Saccharomyces Boulardii [Florastor] 250 mg PO BIDWM #10 capsule 12/05/20 cefUROXime axetiL [Ceftin] 250 mg PO Q12H #10 tablet 12/05/20 predniSONE [Deltasone] 10 mg PO [id number] #16 tab 12/05/20 - PHYSICAL EXAM AT DISCHARGE General Appearance: positive: No acute distress, Alert. negative: Lethargic Eyes Bilateral: positive: Normal inspection, PERRL, No lid inflammation ENT: positive: ENT inspection nml, No signs of dehydration. negative: Purulent nasal drainage Neck: positive: Nml inspection, Trachea midline. negative: Thyromegaly, Tracheal deviation Respiratory: positive: Chest non-tender, No respiratory distress. negative: Wheezes, Rales, Rhonchi Cardiovascular: positive: Regular rate & rhythm, No murmur. negative: Tachycardia, Bradycardia, Systolic murmur, Diastolic murmur Peripheral Pulses: positive: 2+ Abdomen: positive: Non-tender, Nml bowel sounds, No distention. negative: T enderness, Guarding, Rebound Back: positive: Nml inspection. negative: CVA tenderness (R), CVA tenderness (L) Skin: positive: Color nml, No rash, Warm, Dry. negative: Cyanosis, Diaphoresis, Pallor Extremities: positive: Non-tender, Nml appearance. negative: Calf tenderness Neurologic/Psychiatric: positive: Oriented x3, Motor nml, Sensation nml, Mood/affect nml. negative: Weakness, Sensory loss, Facial droop, Slurred/abnml speech, Depressed mood/affect - LABS Result Diagrams: 12/05/20 05:30 12/05/20 05:30 - FOLLOW UP Follow Up: Your ECHO show you have both systolic and diastolic congestive heart failure, EF 35%, and your were found to have fluid overloaded in the admission, you are prescribed Lasix, resume your home meds as well. Followup with housing relocation as out-pt Your Covid 19 test was negative. you was found to have pneumonia, you are prescribed antibiotics to continue finish the treatment course. you are prescribed Albuterol, Atrovent INH inhaler as needed, and low dosage of Prednisone for your COPD control. Continue your home diabetes meds as schedule, continue followup with your shake cutter as the schedule. You may follow-up with your PCP in 1 week, you may follow-up your housing relocation and shake cutter as outpatient. Should your symptoms return or worsen, you may present to ER and call 911 for help. - TIME SPENT Time Spent in Discharge (Minutes): 30
== END 2020-12-05 12:50 | disposition home or self-care (01) | DRG 190 ==
LOC: ED 17:44 → MS3 21:01
PROVIDERS: ADMIT Internal Medicine; ATTEND Nurse Practitioner Gerontology
DX: J44.0 Chronic obstructive pulmonary disease with (acute) lower respiratory infection (principal); J96.01 Acute respiratory failure with hypoxia; J18.9 Pneumonia, unspecified organism; D72.810 Lymphocytopenia; I13.0 Hypertensive heart and chronic kidney disease with heart failure and stage 1 through stage 4 chronic kidney disease, or unspecified chronic kidney disease; I50.40 Unspecified combined systolic (congestive) and diastolic (congestive) heart failure; J44.1 Chronic obstructive pulmonary disease with (acute) exacerbation; I08.1 Rheumatic disorders of both mitral and tricuspid valves; G47.30 Sleep apnea, unspecified; E11.9 Type 2 diabetes mellitus without complications; I50.9 Heart failure, unspecified; E11.22 Type 2 diabetes mellitus with diabetic chronic kidney disease; N18.9 Chronic kidney disease, unspecified; D64.9 Anemia, unspecified; I25.10 Atherosclerotic heart disease of native coronary artery without angina pectoris; N40.0 Benign prostatic hyperplasia without lower urinary tract symptoms; Z20.822 Contact with and (suspected) exposure to COVID-19; Z79.4 Long term (current) use of insulin; Z79.82 Long term (current) use of aspirin; Z79.899 Other long term (current) drug therapy; Z95.5 Presence of coronary angioplasty implant and graft
CPT/HCPCS: 36415; 71045; 80048; 80053; 82607; 82728; 83036; 83540; 83605; 83615; 83690; 83880; 84466; 84484; 85025; 85045; 87040; 87070; 87205; 87631; 93005; 93306; 94640; 96365; 96366; 96368; 96375; 99283; 99285; A9270; J1815; U0004; 0202U

== ENCOUNTER 2021-03-02 09:14 | Outpatient (CLI) | payer MEDICARE, OTHER ==
[2021-03-02] MEDS ORDERED: ALBUTEROL 1 PUFF INH STA (11:40)
== END 2021-03-02 09:15 | disposition home or self-care (01) ==
LOC: RT 09:14
PROVIDERS: ATTEND Physician Assistant Medical
DX: J44.9 Chronic obstructive pulmonary disease, unspecified (principal); R06.00 Dyspnea, unspecified
CPT/HCPCS: 94060; 94727; 94729

== ENCOUNTER 2021-04-22 11:28 | Outpatient (CLI) | payer MEDICARE, OTHER ==
--- NOTE | 2021-04-22 11:58 | XRAY Report ---
PROCEDURE: Hip w/Pelvis 2-3V LT INDICATIONS: ACUTE LT HIP PAIN LT KNEE PAIN TECHNIQUE: AP pelvis with lateral view(s) of the left hip(s). COMPARISON: None. FINDINGS: Bones: No fractures or dislocations. Pelvic ring appears intact. No suspicious bony lesions. Mode rate joint space narrowing and periarticular osteophyte formation at the bilateral hip joints. Soft tissues: The visualized bowel gas pattern is normal. No suspicious soft tissue calcifications. IMPRESSION: Bilateral hip osteoarthritis. No acute fracture. No osseous lesion. If symptoms and/or c linical suspicion for pathology continue, further assessment with repeat plain films, or advanced nestor ging (e.g., CT, MRI, or bone scan) is recommended for further assessment. Reviewed by: Carolyn Carvajal MD on 04/22/2021 11:57 AM PDT Approved by: Carolyn Carvajal MD on 04/22/2021 11:57 AM PDT Station ID: [id number]
--- NOTE | 2021-04-22 14:58 | XRAY Report ---
PROCEDURE: Knee 3 View LT INDICATIONS: ACUTE LT HIP PAIN LT KNEE PAIN TECHNIQUE: 3 views of the left knee(s) were acquired. COMPARISON: None. FINDINGS: Bones: Left knee arthroplasty. No fractures or dislocations. No suspicious bony lesions. Soft tissues: No joint effusion. No suspicious soft tissue calcifications. IMPRESSION: Expected appearance of knee arthroplasty. No acute fracture. No osseous lesion. If sympt oms and/or clinical suspicion for pathology continue, further assessment with repeat plain films, or advanced imaging (e.g., CT or bone scan) is recommended for further assessment. Reviewed by: Carolyn Carvajal MD on 04/22/2021 2:56 PM PDT Approved by: Carolyn Carvajal MD on 04/22/2021 2:56 PM PDT Station ID: [id number]
== END 2021-04-22 11:29 | disposition home or self-care (01) ==
LOC: DI 11:28
PROVIDERS: ATTEND Physician Assistant Medical
DX: M25.552 Pain in left hip (principal); M25.562 Pain in left knee; M16.0 Bilateral primary osteoarthritis of hip; Z96.652 Presence of left artificial knee joint

== ENCOUNTER 2021-05-03 10:43 | Outpatient (CLI) | payer MEDICARE, OTHER ==
--- NOTE | 2021-05-03 12:50 | CT Report ---
PROCEDURE: LOWER EXTREMITY WO - LT INDICATIONS: L HIP AND L KNEE PAIN TECHNIQUE: Noncontrast 3 mm axial sections acquired of the left knee, with coronal and sagittal reformats. COMPARISON: None. FINDINGS: Image quality: Metallic artifact from total knee arthroplasty. Bones: Total left knee arthroplasty with no evidence of hardware failure or loosening. Significant m etallic artifact. No evidence of distal femoral fracture or proximal tibial fracture or proximal fibu lar fracture. Soft tissues: Unremarkable IMPRESSION: No evidence of hardware failure or loosening. No evidence of acute fractures. Reviewed by: Merrick Neal MD on 05/03/2021 11:49 AM GARY Approved by: Merrick Neal MD on 05/03/2021 11:49 AM GARY Station ID: [id number]
--- NOTE | 2021-05-03 13:11 | CT Report ---
PROCEDURE: LOWER EXTREMITY WO - LT INDICATIONS: LT HIP PAIN TECHNIQUE: Noncontrast 3 mm axial sections acquired of the left hip, with coronal and sagittal reformats. COMPARISON: None. FINDINGS: Image quality: Excellent. Bones: Chondrocalcinosis. Mild to moderate degenerative change with osteophytes and joint space loss . Probable chronic superior labral tear. Soft tissues: There is calcific tendinosis involving the gluteus medius and minimus muscles at their insertion to the greater trochanter. There are calcifications involving the hamstring fibers at the insertion on the ischial spine consistent with previous injury. IMPRESSION: 1. No evidence acute fracture or dislocation. 2. Left hip chondrocalcinosis with mild to moderate degenerative arthritis and probable chronic super ior labral tear. 3. Calcific tendinosis of the gluteus medius and minimus tendon insertions. 4. Probable remote hamstring injury. Reviewed by: Merrick Neal MD on 05/03/2021 12:10 PM GARY Approved by: Merrick Neal MD on 05/03/2021 12:10 PM GARY Station ID: [id number]
== END 2021-05-03 10:44 | disposition home or self-care (01) ==
LOC: DI 10:43
PROVIDERS: ATTEND Physician Assistant Medical
DX: M11.252 Other chondrocalcinosis, left hip (principal); M16.12 Unilateral primary osteoarthritis, left hip; M67.854 Other specified disorders of tendon, left hip

== ENCOUNTER 2021-06-05 14:20 | Outpatient (CLI) | payer MEDICARE, OTHER ==
--- NOTE | 2021-06-05 16:21 | MRI Report ---
PROCEDURE: Lumbar Spine W/O INDICATIONS: SPINAL STENOSIS OF LUMBAR W/RADICULOPATHY TECHNIQUE: Noncontrast sagittal T1 spin echo and T2 fast echo, sagittal STIR, axial T1 and T2 fast spin echo thr ough the lumbar spine. In cases with scoliosis, additional coronal T2 fast spin echo may be performe d. COMPARISON: Lumbar spine plain films dated 07/21/2020 FINDINGS: Image quality: Excellent. Alignment and Curvature: There is normal bony alignment. Bone Marrow: Marrow is of normal overall signal. No acute vertebral body compression fractures. Spinal Cord: Conus medullaris terminates at the L1-L2 level. Visualized cord demonstrates normal si gnal and size. Paraspinous Soft Tissues: No paravertebral masses. T12-L1: No canal stenosis or foraminal stenosis. L1-L2: Moderate canal stenosis secondary to disc bulge, facet and ligament hypertrophy, and short pedicles. Mild bilateral foraminal narrowing. L2-L3: Moderate to severe canal stenosis secondary to disc bulge, facet and ligament hypertrophy, and short pedicles. Moderate bilateral foraminal narrowing with bilateral flattening deformity on the exiting bilateral L2 nerve roots. L3-L4: Disc bulge, facet and ligament hypertrophy, short pedicles, moderate canal stenosis. Moderat e right foraminal narrowing. Moderate to severe left foraminal narrowing with a degree of impingement on the exiting left L3 nerve root. L4-L5: Severe or marked canal stenosis secondary to disc bulge, short pedicles, and facet and ligam ent hypertrophy. There is a medially directed facet joint cyst off of the right facet which contribut es to canal stenosis. There is moderate bilateral foraminal narrowing with flattening deformity on th e exiting bilateral L4 nerve roots. L5-S1: Disc bulge. Facet and ligament hypertrophy. Mild canal stenosis. Moderate bilateral foramina l stenosis with flattening deformity on the exiting bilateral L5 nerve roots. IMPRESSION: 1. 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 2. Multilevel canal stenosis is moderate to severe at L2-L3, moderate at L3-L4, severe or marked at L 4-L5, and mild at L5-S1. 3. Multilevel facet arthropathy. 4. Multilevel foraminal narrowing as described above. Reviewed by: Merrick Neal MD on 06/05/2021 4:19 PM PDT Approved by: Merrick Neal MD on 06/05/2021 4:19 PM PDT Station ID: [id number]
== END 2021-06-05 14:21 | disposition home or self-care (01) ==
LOC: DI 14:20
PROVIDERS: ATTEND Orthopaedic Surgery
DX: M47.816 Spondylosis without myelopathy or radiculopathy, lumbar region (principal); M47.817 Spondylosis without myelopathy or radiculopathy, lumbosacral region; M48.061 Spinal stenosis, lumbar region without neurogenic claudication; M48.07 Spinal stenosis, lumbosacral region

== ENCOUNTER 2021-07-04 14:27 | Outpatient (CLI) | payer MEDICARE, OTHER ==
--- NOTE | 2021-07-04 16:03 | Ultrasound Report ---
PROCEDURE: Duplex Ext Veins Bilateral INDICATIONS: C AARON TECHNIQUE: Real-time imaging, as well as color and pulse Doppler interrogation, were performed of the deep veins of both legs from the inguinal ligament to the popliteal fossa. COMPARISON: None. FINDINGS: The deep veins are normally compressible, and free of intraluminal thrombus. Color and pu lse Doppler demonstrate normal phasic intravascular flow. There is normal augmentation response to d istal compression maneuver. IMPRESSION: 1. No evidence of deep venous thrombosis in the right or left lower extremity. Reviewed by: Brandyn Roque MD on 07/04/2021 4:01 PM PDT Approved by: Brandyn Roque MD on 07/04/2021 4:01 PM PDT Station ID: [id number]
== END 2021-07-04 14:28 | disposition home or self-care (01) ==
LOC: DI 14:27
PROVIDERS: ATTEND Internal Medicine Nephrology
DX: I82.403 Acute embolism and thrombosis of unspecified deep veins of lower extremity, bilateral (principal)
CPT/HCPCS: 93970

== ENCOUNTER 2022-03-02 09:18 | Inpatient (IN) | payer MEDICARE, OTHER ==
[2022-03-02] MEDS ORDERED: IPRATROPIUM/ALBUTEROL 3 ML NEB INH STA (09:59)
[2022-03-02] MEDS ORDERED: DEXAMETHASONE 10 MG/ML VIAL IVP STA (09:59)
--- NOTE | 2022-03-02 10:04 | ED Physician Documentation ---
PD HPI DYSPNEA - Stated complaint Stated Complaint: SOA - Chief complaint Chief Complaint: Resp - History obtained from History obtained from: Patient, Family - Additional information Additional information: The patient comes to the emergency department with chief complaint of shortness of breath for about the last 6 days. He states that in general, he has been becoming generally weaker over the last few weeks, but denies any other specific symptoms. No chest pain, cough, or fever/chills. He states that he has not noticed any swelling in his lower extremities. He has a history of COPD but is not oxygen dependent at home. He has a nebulizer machine, and his doctor last week told him to increase his nebulizer treatments to every 4 hours. The patient states he has been doing this, but it does not seem to be helping. He states that he can only walk 8 or 10 feet and then he is completely exhausted and out of breath, which is unusual for him. He states that he also feels worse if he is laying back. The patient has a history of coronary artery disease and had a triple bypass surgery 6 or 7 years ago. He is followed by Dr. Rubio of [facility] cardiology, and states that he has not had any further issues with his coronary artery disease since his bypass. He also has a history of renal insufficiency and sees Dr. Jay for this. He states he has an appointment with Dr. Jay in just a few days. He denies any other complaints at this time. Review of Systems Ten Systems: 10 systems reviewed and negative Constitutional: reports: Reviewed and negative Eyes: reports: Reviewed and negative Ears: reports: Reviewed and negative Nose: reports: Reviewed and negative Throat: reports: Reviewed and negative Cardiac: reports: Reviewed and negative Respiratory: reports: Dyspnea GI: reports: Reviewed and negative : reports: Reviewed and negative Skin: reports: Reviewed and negative Musculoskeletal: reports: Reviewed and negative Neurologic: reports: Generalized weakness Psychiatric: reports: Reviewed and negative Endocrine: reports: Reviewed and negative Immunocompromised: reports: Reviewed and negative PD PAST MEDICAL HISTORY - Past Medical History Past Medical History: Yes Respiratory: COPD, CPAP use - Present Medications Home Medications: Ambulatory Orders Medication Instructions Recorded Confirmed Aspirin [Adult Aspirin Regimen] 81 mg PO DAILY 06/06/20 03/02/22 Atorvastatin [Lipitor] 40 mg PO QPM 06/06/20 03/02/22 Carvedilol [Coreg] 25 mg PO BID 06/06/20 03/02/22 Insulin Glargine [Lantus Solostar] 35 units SQ QPM 06/06/20 03/02/22 Losartan [Cozaar] 50 mg PO BID 06/06/20 03/02/22 Tamsulosin [Flomax] 0.4 mg PO DAILY 12/02/20 03/02/22 Albuterol 2.5 mg INH QID PRN 03/02/22 03/02/22 Hydrocodone/Acetaminophen 1 each PO Q6H PRN 03/02/22 03/02/22 [Hydrocodone-Acetamin 10-325 mg] Insulin Aspart [NovoLOG] 2 - 12 unit SUBQ QDDINNER 03/02/22 03/02/22 Ipratropium [Atrovent] 0.5 mg INH QID PRN 03/02/22 03/02/22 - Allergies Allergies/Adverse Reactions: Allergies Allergy/AdvReac Type Severity Reaction Status Date / Time pneumococcal vaccine Allergy Anaphylaxis Verified 03/02/22 09:23 oxycodone [From Percodan] AdvReac Hives Verified 03/02/22 09:23 - Social History Does the pt smoke?: No Smoking Status: Former smoker Does the pt drink ETOH?: No Does the pt have substance abuse?: No - Immunizations Immunizations are current?: Yes PD ED PE NORMAL - Vitals Vital signs reviewed: Yes - General General: Alert and oriented X 3, No acute distress, Well developed/nourished - HEENT HEENT: Atraumatic, PERRL, EOMI, Moist mucous membranes - Neck Neck: Supple, no meningeal sign - Cardiac Cardiac: RRR, No murmur, Strong equal pulses - Respiratory Respiratory: No respiratory distress, Clear bilaterally, Other (The patient does not appear dyspneic sitting in the bed, and talks easily, but with even the slightest effort, such as rising from a partially reclining position to a fully upright sitting position, the patient begins pursed-lip breathing and appears dyspneic.) - Abdomen Abdomen: Soft, Non tender, Non distended - Derm Derm: Warm and dry, No rash, Other (Moderate pallor) - Extremities Extremities: No deformity, No edema, No calf tenderness / cord - Neuro Neuro: Alert and oriented X 3, 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, Normal speech - Psych Psych: Normal mood, Normal affect Results - Vitals Vitals: Oxygen O2 Source Room air Oxygen Flow Rate 1 - EKG (time done) 1255 Rate: Rate (enter#) (79) Rhythm: NSR [place]: LAD Intervals: Normal MA QRS: Normal Ischemia: Normal ST segments Compare to prior EKG: Old EKG unavailable Computer interpretation: Agree with computer - Labs Labs: Laboratory Tests 03/02/22 03/02/22 03/02/22 09:44 09:44 09:44 WBC 7.2 RBC 3.23 L Hgb 9.9 L Hct 31.6 L MCV 97.8 H MCH 30.7 MCHC 31.3 L RDW 14.7 Plt Count 177 MPV 10.8 Neut # (Auto) 6.1 Lymph # (Auto) 0.4 L [place] # (Auto) 0.5 Eos # (Auto) 0.1 Baso # (Auto) 0.1 Absolute Nucleated RBC 0.00 Nucleated RBC % 0.0 Sodium 138 Potassium 4.4 Chloride 104 Carbon Dioxide 25 Anion Gap 9.0 BUN 39 H Creatinine 1.6 H Estimated GFR (MDRD) 42 L Glucose 211 H Calcium 8.5 Total Bilirubin 0.6 AST 25 ALT 33 Alkaline Phosphatase 70 Troponin I High Sens B-Natriuretic Peptide 1578 H Total Protein 6.6 L Albumin 3.5 Globulin 3.1 Albumin/Globulin Ratio 1.1 Lipase 25 Nasal Adenovirus (PCR) Nasal B. parapertussis DNA (PCR) Nasal Coronavir 229E PCR Nasal Coronavir HKU1 PCR Nasal Coronavir NL63 PCR Nasal Coronavir OC43 PCR Nasal Enterovir/Rhinovir PCR Nasal Influenza B PCR Nasal Influenza A PCR Nasal Parainfluen 1 PCR Nasal Parainfluen 2 PCR Nasal Parainfluen 3 PCR Nasal Parainfluen 4 PCR Nasal RSV (PCR) Nasal B.pertussis DNA PCR Nasal C.pneumoniae (PCR) Kevin Human Metapneumo PCR Nasal M.pneumoniae (PCR) Nasal SARS-CoV-2 (PCR) 03/02/22 03/02/22 03/02/22 09:44 10:02 12:48 WBC RBC Hgb Hct MCV MCH MCHC RDW Plt Count MPV Neut # (Auto) Lymph # (Auto) [place] # (Auto) Eos # (Auto) Baso # (Auto) Absolute Nucleated RBC Nucleated RBC % Sodium Potassium Chloride Carbon Dioxide Anion Gap BUN Creatinine Estimated GFR (MDRD) Glucose Calcium Total Bilirubin AST ALT Alkaline Phosphatase Troponin I High Sens 131.6 H* 134.0 H* B-Natriuretic Peptide Total Protein Albumin Globulin Albumin/Globulin Ratio Lipase Nasal Adenovirus (PCR) NOT DETECTED Nasal B. parapertussis DNA (PCR) NOT DETECTED Nasal Coronavir 229E PCR NOT DETECTED Nasal Coronavir HKU1 PCR NOT DETECTED Nasal Coronavir NL63 PCR NOT DETECTED Nasal Coronavir OC43 PCR NOT DETECTED Nasal Enterovir/Rhinovir PCR NOT DETECTED Nasal Influenza B PCR NOT DETECTED Nasal Influenza A PCR NOT DETECTED Nasal Parainfluen 1 PCR NOT DETECTED Nasal Parainfluen 2 PCR NOT DETECTED Nasal Parainfluen 3 PCR NOT DETECTED Nasal Parainfluen 4 PCR NOT DETECTED Nasal RSV (PCR) NOT DETECTED Nasal B.pertussis DNA PCR NOT DETECTED Nasal C.pneumoniae (PCR) NOT DETECTED Kevin Human Metapneumo PCR NOT DETECTED Nasal M.pneumoniae (PCR) NOT DETECTED Nasal SARS-CoV-2 (PCR) NOT DETECTED - Rads (name of study) CXR Radiology: Final report received, EMP read indepedently, See rad report (CHF) PD MEDICAL DECISION MAKING - ED course Complexity details: reviewed old records, reviewed results, re-evaluated patient, considered differential, d/w patient ED course: The patient was evaluated with labs, EKG, and chest x-ray, and found to have an elevated BNP over 1999, chest XR showing CHF, and stable troponins over 2 measurements. He had already been given a Duoneb, albuterol neb, and a dose of Decadron, and was now given Lasix for diuresis. Departure - Departure Disposition: [facility] DC/Xfer Clinical Impression: COPD exacerbation, Acute exacerbation of CHF (congestive heart failure) Condition: Serious Discharge Date/Time: 03/02/22 14:57
[2022-03-02 10:07] LABS: BASOPHILS # (AUTO) 0.1 10^3/uL (0.0-0.1); EOSINOPHILS # (AUTO) 0.1 10^3/uL (0.0-0.7); EOSINOPHILS % (AUTO) 1.4 %; HCT - HEMATOCRIT 31.6 % (42.0-52.0); HGB - HEMOGLOBIN 9.9 g/dL (14.0-18.0); LYMPHOCYTES # (AUTO) 0.4 10^3/uL (1.5-3.5); LYMPHOCYTES % (AUTO) 6.1 %; MEAN CORPUSCULAR HEMOGLOBIN 30.7 pg (27.0-31.0); MEAN CORPUSCULAR HGB CONC 31.3 g/dL (32.0-36.0); MEAN CORPUSCULAR VOLUME 97.8 fL (80.0-94.0); MEAN PLATELET VOLUME 10.8 fL (7.4-11.4); MONOCYTES # (AUTO) 0.5 10^3/uL (0.0-1.0); MONOCYTES % (AUTO) 6.2 %; NEUTROPHILS # (AUTO) 6.1 10^3/uL (1.5-6.6); NEUTROPHILS % (AUTO) 83.9 %; PLT - PLATELET COUNT 177 10^3/uL (130-450); RED BLOOD COUNT 3.23 10^6/uL (4.70-6.10); RED CELL DISTRIBUTION WIDTH 14.7 % (12.0-15.0); WHITE BLOOD COUNT 7.2 x10^3/uL (4.8-10.8)
[2022-03-02 10:15] LABS: ALBUMIN 3.5 g/dL (3.2-5.5); ALBUMIN/GLOBULIN RATIO 1.1 (1.0-2.2); BILIRUBIN,TOTAL 0.6 mg/dL (0.2-1.0); CALCIUM 8.5 mg/dL (8.5-10.3); CREATININE 1.6 mg/dL (0.6-1.2); POTASSIUM 4.4 mmol/L (3.5-5.0); TOTAL PROTEIN 6.6 g/dL (6.7-8.2)
--- NOTE | 2022-03-02 10:30 | XRAY Report ---
PROCEDURE: Chest 1 View X-Ray INDICATIONS: chest pain TECHNIQUE: One view of the chest was acquired. COMPARISON: 12/02/2020 and 07/31/2020. FINDINGS: Surgical changes and devices: Mediastinotomy wires are again seen. Lungs and pleura: Pulmonary vascular congestion is noted with small bilateral pleural effusion and pu lmonary edema. Underlying bibasilar patchy infiltrate/atelectasis cannot be excluded. No gross pneumo thorax. Mediastinum: Tortuous thoracic aorta and aortic arch calcifications are seen. Heart size is enlarged. Bones and chest wall: No suspicious bony lesions. Overlying soft tissues appear unremarkable. IMPRESSION: Finding is suggestive of CHF. Underlying small bibasilar infiltrates/atelectasis cannot be excluded. No gross pneumothorax. Reviewed by: Gabo Burger MD on 03/02/2022 10:29 AM PDT Approved by: Gabo Burger MD on 03/02/2022 10:29 AM PDT Station ID: [id number]
[2022-03-02 11:00] LABS: B. PARAPERTUSSIS- RESP PCR PAN NOT DETECTED; B. PERTUSSIS- RESP PCR PANEL NOT DETECTED; C. PNEUMONIAE- RESP PCR PANEL NOT DETECTED; CORONAVIRUS 229E-RESP PCR NOT DETECTED; CORONAVIRUS HKU1-RESP PCR NOT DETECTED; CORONAVIRUS NL63-RESP PCR NOT DETECTED; CORONAVIRUS OC43-RESP PCR NOT DETECTED; HUMAN METAPNEUMOVIRUS NOT DETECTED; INFLUENZA A- RESP PCR PANEL NOT DETECTED; INFLUENZA B - RESP PCR PANEL NOT DETECTED; M. PNEUMONIAE- RESP PCR PANEL NOT DETECTED; PARAINFLUENZA VIRUS 1 NOT DETECTED; PARAINFLUENZA VIRUS 2 NOT DETECTED; PARAINFLUENZA VIRUS 3 NOT DETECTED; PARAINFLUENZA VIRUS 4 NOT DETECTED; RHINOVIRUS/ENTEROVIRUS NOT DETECTED; RSV- RESP PCR PANEL NOT DETECTED; SARS-CoV-2 -RESP PCR PANEL NOT DETECTED
[2022-03-02] MEDS ORDERED: ALBUTEROL NEB 2.5 MG/3 ML INH STA (12:33)
[2022-03-02] MEDS ORDERED: FUROSEMIDE 40 MG/4 ML VIAL IVP STA (12:33)
[2022-03-02] MEDS ORDERED: ONDANSETRON ODT 4 MG TABLET TL PRN (14:21)
--- NOTE | 2022-03-02 14:40 | HISTORY & PHYSICAL EXAMINATION ---
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 He states his symptoms began this past Wednesday and he saw his primary care physician a few days later. The patient reports there was concern for possible pneumonia or a flareup of his COPD. He was prescribed a higher dose of albuterol and the patient states he was taking this via nebulizer but has not had much improvement in his symptoms. He states his dyspnea is worse with activity. He has no chest pain, fever, chills. He has an occasional no nproductive cough. He has had orthopnea which has been most prominent over the past 2 days. He reports sleeping only 3 hours over the past 2 nights due to the dyspnea. He does see Dr. Jay of nephrology and the patient recalls having his Lasix discontinued about a month ago as he did not have any lower extremity edema. He reports having a history of 2 stents and a CABG back in 2017. He is followed by Dr. Fernandes of cardiology at [facility]. He is not on home oxygen. Here in the emergency department, it was noted that he was hypoxic in the mid 80s on room air. His chest x-ray suggested pulmonary edema and his BNP was elevated. His EKG did not suggest ischemia. Initial troponin was elevated in the 130s but this is flat on recheck. Given the above findings, medicine was consulted for admission. We discussed goals of care and he would like to be a full code. If he were to have anoxic brain injury then he would not want to remain on a ventilator or life support. History - Past Medical History Cardiovascular: reports: Congestive heart failure, Coronary artery disease, Murmur, Valve disorder Respiratory: reports: COPD, Sleep apnea, CPAP use Endocrine/Autoimmune: reports: Type 2 diabetes : reports: Renal insuffiency - Family & Social History Family History Comment/Other: He reports his mother from congestive heart failure. He had a brother and sister who both from a myoca rdial infarction. Living arrangement: At home Living Situation: With spouse/s.o. Social History Notes: He lives at home with his , Dillon. He smoked about three quarters of a pack a day for 50 years but quit 4 years ago. He does not drink alcohol. 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 Meds/Allgy - Home Medications Home Medications: Ambulatory Orders Medication Instructions Recorded Confirmed Aspirin [Adult Aspirin Regimen] 81 mg PO DAILY 06/06/20 12/02/20 Atorvastatin [Lipitor] 40 mg PO QPM 06/06/20 03/02/22 Carvedilol [Coreg] 25 mg PO BID 06/06/20 03/02/22 Insulin Glargine [Lantus Solostar] 20 - 25 units SQ BID 06/06/20 12/02/20 Losartan [Cozaar] 50 mg PO BID 06/06/20 03/02/22 Tamsulosin [Flomax] 0.4 mg PO DAILY 12/02/20 03/02/22 Albuterol Sulf [Ventolin Hfa 1 - 2 puffs INH Q4HR PRN #1 inhaler 12/05/20 Inhaler] Furosemide [Lasix] 40 mg PO DAILY #30 tablet 12/05/20 Ipratropium [Atrovent] 1 puffs INH Q6H PRN #1 inhaler 12/05/20 - Allergies Allergies/Adverse Reactions: Allergies Allergy/AdvReac Type Severity Reaction Status Date / Time pneumococcal vaccine Allergy Anaphylaxis Verified 03/02/22 09:23 oxycodone [From Percodan] AdvReac Hives Verified 03/02/22 09:23 Review of Systems - Constitutional Constitutional: denies: Fever, Chills - Ears, Nose & Throat Ears, Nose & Throat: denies: Nasal discharge, Nasal congestion - Cardiovascular Cariovascular: reports: Exertional dyspnea, Decr. exercise tolerance. denies: Chest pain, Edema, Lightheadedness - Respiratory Respiratory: reports: Cough, Orthopnea, SOB with exertion. denies: Sputum production, SOB at rest - Gastrointestinal Gastrointestinal: denies: Abdominal pain, Nausea, Vomiting - Genitourinary Genitourinary: denies: Dysuria, Frequency, Urgency, Hematuria - Integumentary Integumentary: denies: Rash - Neurological Neurological: denies: General weakness, Dizziness - Hematologic/Lymphatic Hematologic/Lymphatic: reports: Bruising. denies: Anemia, Bleeding tendencies - All Other Systems All Other Systems: reports: Reviewed and negative Prior Level of Functionality: He is independent with his ADLs. Exam - Vital Signs Reviewed Vital Signs: Yes Vital Signs: Vital Signs x48h Temp Pulse Resp BP Pulse Ox 03/02/22 14:13 79 25 H 153/88 H 94 03/02/22 13:19 94 H 82 L 03/02/22 13:17 73 89 H 152/110 H 86 L 03/02/22 13:15 95 17 03/02/22 12:00 76 24 129/112 H 93 03/02/22 11:50 73 21 139/79 H 92 03/02/22 11:00 79 17 139/79 H 96 03/02/22 10:31 87 16 03/02/22 10:24 77 17 167/85 H 100 03/02/22 09:57 79 29 H 147/99 H 96 03/02/22 09:48 80 25 H 85 L 03/02/22 09:23 36.8 C 88 32 H 122/78 92 - Physical Exam General Appearance: positive: No acute distress, Alert Eyes Bilateral: positive: Normal inspection, Conjunctivae nml ENT: positive: ENT inspection nml, Other (Nasal cannula in place.) Neck: positive: Nml inspection Respiratory: positive: No respiratory distress, Rales. negative: Wheezes, Rhon chi Cardiovascular: positive: Regular rate & rhythm, Systolic murmur. negative: Irregularly irregular, Tachycardia Abdomen: positive: Non-tender, No distention. negative: Tenderness Skin: positive: Warm, Dry Extremities: positive: No pedal edema Neurologic/Psychiatric: positive: Motor nml. negative: Disoriented to person, Disoriented to place, Disoriented to time Conclusion/Plan - Problem List (1) Acute on chronic HFrEF (heart failure with reduced ejection fraction) Conclusion/Plan: This is the cause of his dyspnea and hypoxia. This likely occurred due to the discontinuation of his home furosemide. He is requiring 2 L of oxygen via nasal cannula. Chest x-ray confirms pulmonary edema and although his BNP is low as it has been over the past year, it is still elevated. Last echocardiogram revealed an ejection fraction of 35% and grade 4 diastolic dysfunction. Given his hypoxia, we will admit him under inpatient status. We will start him on Lasix 40 mg IV twice daily. Continue carvedilol and losartan. Low-sodium diet. Strict I's and O's and daily weights. He will need a diuretic on discharge once again. (2) Elevated troponin Conclusion/Plan: His troponin is elevated in the 130s but this is flat. He has no angina as EKG does not suggest ischemia. This is likely demand ischemia secondary to the heart failure. We will recheck another troponin to ensure it is trending down. Monitor on telemetry. (3) Mitral regurgitation Conclusion/Plan: This was evident on the echocardiogram from last year. We will request records from his natural resources specialist to see what the plan is regarding management of this. He will continue outpatient follow-up on discharge. (4) Hx of coronary artery disease Conclusion/Plan: He has a known history of coronary artery disease with CABG in 2017. His troponin is elevated as mentioned above but is likely demand ischemia due to the heart failure. We will continue his home carvedilol, aspirin, statin. (5) CKD (chronic kidney disease) Conclusion/Plan: He has chronic kidney disease likely secondary to his diabetes. His creatinine is stable at his baseline of 1.6. We will diuresis with IV Lasix and will resume his home losartan. Qualifiers: Chronic kidney disease stage: stage 3 (moderate) Chronic kidney disease stage 3 subtype: stage 3b (GFR 30-44) Qualified Code(s): N18.32 - Chronic kidney disease, stage 3b (6) Insulin dependent diabetes mellitus Conclusion/Plan: His blood glucose is currently greater than 200. We will resume his home Lantus plus sliding scale. Check A1c as the last one was 6.7%. Carb controlled diet. (7) BPH (benign prostatic hyperplasia) Conclusion/Plan: Continue Flomax. (8) BABATUNDE on CPAP Conclusion/Plan: We will continue his home CPAP. - Lab Results Lab results reviewed: Yes Jimenez Bones: 03/02/22 09:44 03/02/22 09:44 - Diagnostic Imaging Results Diagnostic Imaging Results: positive: Final report reviewed Diagnostic Imaging Results Comments: EKG reveals a sinus rhythm with nonspecific ST segment changes. - EKG Results EKG Interpreted Independently: Yes Core Measures - Anticipated LOS I expect patient to be DC'd or transferred within 96 hours.: Yes - Issues Hospital Issues and Management Plan: 81-year-old male with history of known chronic systolic congestive heart failure presents with worsening dyspnea found to be in acute on chronic congestive heart failure. We will admit him for IV diuresis. - DVT/VTE - Prophylaxis VTE/DVT Device ordered at admit?: Yes VTE/DVT Prophylaxis med ordered at admit?: Yes
[2022-03-02] MEDS: ACETAMINOPHEN 325 MG TABLET PO PRN (15:28)
[2022-03-02] MEDS: INSULIN ASPART 300 UNIT/3 ML PEN SUBQ SCH ×2 (16:43→21:21)
[2022-03-02] MEDS: SODIUM CHLORIDE FLUSH 0.9% 10 ML SYRINGE IVP SCH (16:43)
--- NOTE | 2022-03-02 16:45 | PHARMACY PROGRESS NOTE ---
- Best Possible Medication History Admit Date and Time: 03/02/22 1421 Processed by: Pharmacy Medication History completed: Yes Patient Interview: Completed Secondary Source(s): Pharmacy records, Insurance records As the person ultimately responsible for medication therapy, providers are able to order a medication from an existing home medication list in [facility] via the "Reconcile Routine" prior to Confirmation of that medication by postal support employee. Such practice is discouraged except when the physician, in their clinical judgment, deems that a medical need exists for a medication without regard to previous use.
[2022-03-02] MEDS ORDERED: BENZONATATE 100 MG CAPSULE PO PRN (16:55)
[2022-03-02] MEDS: INSULIN GLARGINE 300 UNIT/3 ML PEN SUBQ SCH (21:21)
[2022-03-02] MEDS: TAMSULOSIN 0.4 MG CAPSULE PO SCH (21:22)
[2022-03-02] MEDS: carvediloL 12.5 MG TABLET PO SCH (21:22)
[2022-03-02] MEDS: ATORVASTATIN 40 MG TABLET PO SCH (21:22)
[2022-03-02] MEDS: LOSARTAN 50 MG TABLET PO SCH (21:22)
[2022-03-03] MEDS: ACETAMINOPHEN 325 MG TABLET PO PRN ×2 (00:22→06:49)
[2022-03-03] MEDS: diphenhydrAMINE 25 MG CAPSULE PO PRN ×2 (00:23→22:10)
[2022-03-03 05:34] LABS: BASOPHILS % (AUTO) 0.1 %; HCT - HEMATOCRIT 31.6 % (42.0-52.0); LYMPHOCYTES # (AUTO) 0.2 10^3/uL (1.5-3.5); LYMPHOCYTES % (AUTO) 2.9 %; MEAN CORPUSCULAR HEMOGLOBIN 30.9 pg (27.0-31.0); MEAN CORPUSCULAR HGB CONC 31.6 g/dL (32.0-36.0); MEAN CORPUSCULAR VOLUME 97.5 fL (80.0-94.0); MEAN PLATELET VOLUME 10.3 fL (7.4-11.4); MONOCYTES # (AUTO) 0.2 10^3/uL (0.0-1.0); MONOCYTES % (AUTO) 2.6 %; NEUTROPHILS # (AUTO) 6.8 10^3/uL (1.5-6.6); NEUTROPHILS % (AUTO) 92.8 %; PLT - PLATELET COUNT 193 10^3/uL (130-450); RED BLOOD COUNT 3.24 10^6/uL (4.70-6.10); RED CELL DISTRIBUTION WIDTH 14.7 % (12.0-15.0); WHITE BLOOD COUNT 7.3 x10^3/uL (4.8-10.8)
[2022-03-03 05:41] LABS: CALCIUM 8.5 mg/dL (8.5-10.3); CREATININE 1.7 mg/dL (0.6-1.2); POTASSIUM 4.7 mmol/L (3.5-5.0)
[2022-03-03] MEDS: FUROSEMIDE 40 MG/4 ML VIAL IVP SCH ×2 (06:44→14:23)
[2022-03-03] MEDS: SODIUM CHLORIDE FLUSH 0.9% 10 ML SYRINGE IVP SCH ×4 (06:44→23:47)
[2022-03-03] MEDS ORDERED: ALBUTEROL NEB 2.5 MG/3 ML INH PRN (07:35)
[2022-03-03] MEDS: LOSARTAN 50 MG TABLET PO SCH ×2 (08:01→20:42)
[2022-03-03] MEDS: ASPIRIN EC 81 MG TABLET PO SCH (08:01)
[2022-03-03] MEDS: carvediloL 12.5 MG TABLET PO SCH ×2 (08:01→20:42)
[2022-03-03] MEDS: ENOXAPARIN 40 MG/0.4 ML SYRINGE SUBQ SCH (08:02)
[2022-03-03] MEDS: INSULIN ASPART 300 UNIT/3 ML PEN SUBQ SCH ×4 (08:02→20:42)
[2022-03-03] MEDS: IPRATROPIUM/ALBUTEROL 3 ML NEB INH SCH ×4 (08:09→19:17)
--- NOTE | 2022-03-03 11:24 | PROVIDER PROGRESS NOTE ---
Subjective - Prog Note Date Prog Note Date: 03/03/22 - Subjective Pt reports feeling: Improved Subjective: He is still on supplemental oxygen. He did not have his home CPAP device to sleep with last night and is still short of breath, feels congested and orthopnic. After receiving a nebulizer treatment this morning, he feels slightly better. He said he used his home inhalers only at bedtime or as needed. Objective - Vital Signs/Intake & Output Reviewed Vital Signs: Yes Vital Signs: Vital Signs x48h Temp Pulse Pulse Resp BP BP Pulse Ox 03/03/22 10:46 72 20 03/03/22 08:12 80 21 03/03/22 07:22 36.3 C L 80 20 145/62 H 94 03/03/22 05:13 36.6 C 79 20 123/75 95 Intake & Output: Intake & Output 02/28/22 03/01/22 03/02/22 03/03/22 23:59 23:59 23:59 23:59 Intake Total 100 100 Output Total 900 875 Balance -800 -775 - Objective General Appearance: positive: No acute distress (at rest), Other (Obese white male, sitting in bed with HOB elevated, on O2 n.c.) Eyes Bilateral: positive: Normal inspection, EOMI Neck: positive: Nml inspection, No JVD Respiratory: positive: Rales Cardiovascular: positive: Regular rate & rhythm, Other (Distant heart sounds) Abdomen: positive: Non-tender (Obese abdomen) Skin: positive: Warm, Dry Extremities: positive: Other (Trace-1+ ankle edema) Neurologic/Psychiatric: positive: Oriented x3 (Non-focal) - Lab Results Fish Bones: 03/03/22 05:09 03/03/22 05:09 Other Labs: Lab Results x24hrs 03/03/22 03/03/22 03/03/22 Range/Units 10:59 07:16 05:09 WBC (4.8-10.8) x10^3/uL RBC (4.70-6.10) 10^6/uL Hgb (14.0-18.0) g/dL Hct (42.0-52.0) % MCV (80.0-94.0) fL MCH (27.0-31.0) pg MCHC (32.0-36.0) g/dL RDW (12.0-15.0) % Plt Count (130-450) 10^3/uL MPV (7.4-11.4) fL Neut # (Auto) (1.5-6.6) 10^3/uL Lymph # (Auto) (1.5-3.5) 10^3/uL Ray # (Auto) (0.0-1.0) 10^3/uL Eos # (Auto) (0.0-0.7) 10^3/uL Baso # (Auto) (0.0-0.1) 10^3/uL Absolute Nucleated RBC x10^3/uL Nucleated RBC % /100WBC Sodium (135-145) mmol/L Potassium (3.5-5.0) mmol/L Chloride (101-111) mmol/L Carbon Dioxide (21-32) mmol/L Anion Gap (6-13) BUN (6-20) mg/dL Creatinine (0.6-1.2) mg/dL Estimated GFR (MDRD) (>89) Glucose (70-100) mg/dL POC Whole Bld Glucose 205 H 204 H (70 - 100) mg/dL Calcium (8.5-10.3) mg/dL Troponin I High Sens (2.3-19.7) ng/L B-Natriuretic Peptide 3042 H (5-100) pg/mL 03/03/22 03/03/22 03/02/22 Range/Units 05:09 05:09 20:43 WBC 7.3 (4.8-10.8) x10^3/uL RBC 3.24 L (4.70-6.10) 10^6/uL Hgb 10.0 L (14.0-18.0) g/dL Hct 31.6 L (42.0-52.0) % MCV 97.5 H (80.0-94.0) fL MCH 30.9 (27.0-31.0) pg MCHC 31.6 L (32.0-36.0) g/dL RDW 14.7 (12.0-15.0) % Plt Count 193 (130-450) 10^3/uL MPV 10.3 (7.4-11.4) fL Neut # (Auto) 6.8 H (1.5-6.6) 10^3/uL Lymph # (Auto) 0.2 L (1.5-3.5) 10^3/uL Ray # (Auto) 0.2 (0.0-1.0) 10^3/uL Eos # (Auto) 0.0 (0.0-0.7) 10^3/uL Baso # (Auto) 0.0 (0.0-0.1) 10^3/uL Absolute Nucleated RBC 0.00 x10^3/uL Nucleated RBC % 0.0 /100WBC Sodium 138 (135-145) mmol/L Potassium 4.7 (3.5-5.0) mmol/L Chloride 102 (101-111) mmol/L Carbon Dioxide 26 (21-32) mmol/L Anion Gap 10.0 (6-13) BUN 46 H (6-20) mg/dL Creatinine 1.7 H (0.6-1.2) mg/dL Estimated GFR (MDRD) 39 L (>89) Glucose 230 H (70-100) mg/dL POC Whole Bld Glucose 225 H (70 - 100) mg/dL Calcium 8.5 (8.5-10.3) mg/dL Troponin I High Sens (2.3-19.7) ng/L B-Natriuretic Peptide (5-100) pg/mL 03/02/22 03/02/22 03/02/22 Range/Units 16:35 15:30 12:48 WBC (4.8-10.8) x10^3/uL RBC (4.70-6.10) 10^6/uL Hgb (14.0-18.0) g/dL Hct (42.0-52.0) % MCV (80.0-94.0) fL MCH (27.0-31.0) pg MCHC (32.0-36.0) g/dL RDW (12.0-15.0) % Plt Count (130-450) 10^3/uL MPV (7.4-11.4) fL Neut # (Auto) (1.5-6.6) 10^3/uL Lymph # (Auto) (1.5-3.5) 10^3/uL Ray # (Auto) (0.0-1.0) 10^3/uL Eos # (Auto) (0.0-0.7) 10^3/uL Baso # (Auto) (0.0-0.1) 10^3/uL Absolute Nucleated RBC x10^3/uL Nucleated RBC % /100WBC Sodium (135-145) mmol/L Potassium (3.5-5.0) mmol/L Chloride (101-111) mmol/L Carbon Dioxide (21-32) mmol/L Anion Gap (6-13) BUN (6-20) mg/dL Creatinine (0.6-1.2) mg/dL Estimated GFR (MDRD) (>89) Glucose (70-100) mg/dL POC Whole Bld Glucose 203 H (70 - 100) mg/dL Calcium (8.5-10.3) mg/dL Troponin I High Sens 133.1 H* 134.0 H* (2.3-19.7) ng/L B-Natriuretic Peptide (5-100) pg/mL 03/02/22 Range/Units 09:44 WBC (4.8-10.8) x10^3/uL RBC (4.70-6.10) 10^6/uL Hgb (14.0-18.0) g/dL Hct (42.0-52.0) % MCV (80.0-94.0) fL MCH (27.0-31.0) pg MCHC (32.0-36.0) g/dL RDW (12.0-15.0) % Plt Count (130-450) 10^3/uL MPV (7.4-11.4) fL Neut # (Auto) (1.5-6.6) 10^3/uL Lymph # (Auto) (1.5-3.5) 10^3/uL Ray # (Auto) (0.0-1.0) 10^3/uL Eos # (Auto) (0.0-0.7) 10^3/uL Baso # (Auto) (0.0-0.1) 10^3/uL Absolute Nucleated RBC x10^3/uL Nucleated RBC % /100WBC Sodium (135-145) mmol/L Potassium (3.5-5.0) mmol/L Chloride (101-111) mmol/L Carbon Dioxide (21-32) mmol/L Anion Gap (6-13) BUN (6-20) mg/dL Creatinine (0.6-1.2) mg/dL Estimated GFR (MDRD) (>89) Glucose (70-100) mg/dL POC Whole Bld Glucose (70 - 100) mg/dL Calcium (8.5-10.3) mg/dL Troponin I High Sens 131.6 H* (2.3-19.7) ng/L B-Natriuretic Peptide (5-100) pg/mL Assessment/Plan - Problem List (1) Acute on chronic HFrEF (heart failure with reduced ejection fraction) Impression: His last Echocardiogram here, was done over a year ago (Nov 2020) and revealed an ejection fraction of 35% with global hypokinesis, plus grade 3 diastolic dysfunction. This is likely the cause of his dyspnea and hypoxia. And it likely occurred due to the discontinuation of his home furosemide 1 month ago, by his Neprologist. He is requiring 2 L of oxygen via nasal cannula. His BNP kamaljit from 1500>> 3000 today. Because of the worsened BNP, as a Board-certified [employer], I performed a limited bedside Echo today and it his showed his LVEF is 25-30%, with apical thinning and akinesis, other saleh hypokinetic. Will request the results of his last (yearly) Echo done in Jul 2021, from his [employer]ic's office (Dr Colvin). We will continue Lasix 40 mg IV twice daily. Continue carvedilol and losartan. Low-sodium diet ordered. Strict I's and O's and daily weights ordered. Follow BNP, BMP and Mg daily. He will need a diuretic on discharge once again. (2) Elevated troponin Conclusion/Plan: His troponins are elevated in the 130s but this flat, consistent with CHF. (3) Mitral regurgitation Conclusion/Plan: Significant MR was evident on the Echocardiogram from last year. We will request records from his supervisor [employer] to see what the plan is regarding management of this. (4) Hx of coronary artery disease Conclusion/Plan: He has a known history of coronary artery disease with stents and then CABG in 2017. His troponin is elevated as mentioned above but is likely due to the heart failure. We will continue his home Carvedilol, aspirin, statin. If the LV apical wall motion abnormality is new, we will consider transfer to his [employer] for an angiogram, or would perform a stress test to check for ischemia, since he says his last stress test was in 2017. A stress test would be done after diuresis, so that he can lie flat for nuclear images. (5) CKD (chronic kidney disease) Conclusion/Plan: He has chronic kidney disease likely secondary to his diabetes. His creatinine went from 1.6 to 1.7 today. We will continue diuresis with IV Lasix and will resume his home Losartan today. If creat rises further tomorrow, will need to change the ARB to Hydralazine + Nitrates. Avoid nephrotoxins, therefore will not start Spironolactone yet. Follow BMP daily. Qualifiers: Chronic kidney disease stage: stage 3 (moderate) Chronic kidney disease stage 3 subtype: stage 3b (GFR 30-44) Qualified Code(s): N18.32 - Chronic kidney disease, stage 3b (6) Insulin dependent diabetes mellitus Conclusion/Plan: His blood glucose is currently greater than 200. We have resumed his home Lantus plus sliding scale. Checking A1c (as the last one was 6.7%). Carb controlled diet ordered. (7) BPH (benign prostatic hyperplasia) Conclusion/Plan: Continue Flomax. (8) BABATUNDE on CPAP Conclusion/Plan: We will order his home CPAP to be used here, should bring it in. (9) COPD He does not appear to be in COPD exacerbation currently. Will resume his scheduled bronchodilators and add prn use.
[2022-03-03] MEDS: SODIUM CHLORIDE FLUSH 0.9% 10 ML SYRINGE IVP PRN (14:23)
[2022-03-03] MEDS: ATORVASTATIN 40 MG TABLET PO SCH (20:42)
[2022-03-03] MEDS: TAMSULOSIN 0.4 MG CAPSULE PO SCH (20:42)
[2022-03-03] MEDS: INSULIN GLARGINE 300 UNIT/3 ML PEN SUBQ SCH (20:43)
[2022-03-04 05:11] LABS: BASOPHILS % (AUTO) 0.1 %; EOSINOPHILS % (AUTO) 0.3 %; HCT - HEMATOCRIT 29.7 % (42.0-52.0); HGB - HEMOGLOBIN 9.1 g/dL (14.0-18.0); LYMPHOCYTES # (AUTO) 0.7 10^3/uL (1.5-3.5); LYMPHOCYTES % (AUTO) 9.3 %; MEAN CORPUSCULAR HEMOGLOBIN 30.3 pg (27.0-31.0); MEAN CORPUSCULAR HGB CONC 30.6 g/dL (32.0-36.0); MEAN PLATELET VOLUME 10.4 fL (7.4-11.4); MONOCYTES # (AUTO) 0.6 10^3/uL (0.0-1.0); MONOCYTES % (AUTO) 7.7 %; NEUTROPHILS # (AUTO) 5.9 10^3/uL (1.5-6.6); NEUTROPHILS % (AUTO) 81.2 %; PLT - PLATELET COUNT 189 10^3/uL (130-450); WHITE BLOOD COUNT 7.3 x10^3/uL (4.8-10.8)
[2022-03-04 05:22] LABS: CALCIUM 8.4 mg/dL (8.5-10.3); CREATININE 1.8 mg/dL (0.6-1.2); MAGNESIUM 1.9 mg/dL (1.7-2.8); POTASSIUM 4.4 mmol/L (3.5-5.0)
[2022-03-04] MEDS: FUROSEMIDE 40 MG/4 ML VIAL IVP SCH ×2 (06:00→13:56)
[2022-03-04] MEDS: IPRATROPIUM/ALBUTEROL 3 ML NEB INH SCH ×5 (06:11→19:00)
[2022-03-04] MEDS: INSULIN ASPART 300 UNIT/3 ML PEN SUBQ SCH ×4 (07:42→20:38)
[2022-03-04] MEDS: SODIUM CHLORIDE FLUSH 0.9% 10 ML SYRINGE IVP SCH ×2 (08:12→17:00)
[2022-03-04] MEDS: carvediloL 12.5 MG TABLET PO SCH ×2 (08:12→20:31)
[2022-03-04] MEDS: polyethylene glycoL 3350 17 GM PACKET PO SCH (08:12)
[2022-03-04] MEDS: LOSARTAN 50 MG TABLET PO SCH (08:12)
[2022-03-04] MEDS: ENOXAPARIN 40 MG/0.4 ML SYRINGE SUBQ SCH (08:12)
[2022-03-04] MEDS: ASPIRIN EC 81 MG TABLET PO SCH (08:12)
--- NOTE | 2022-03-04 08:29 | PROVIDER PROGRESS NOTE ---
Assessment/Plan - Problem List (1) Acute on chronic HFrEF (heart failure with reduced ejection fraction) Assessment/Plan: This CHF exacerbation was partly due to the discontinuation of his home furosemide 1 month ago, by his Neprologist. He has been requiring 2 L of oxygen via nasal cannula>> today his oxygen saturations are OK on room air at rest. His BNP 1500>> 3000>> 1000 today, after iv Lasix given for several days. His last Echocardiogram here, was done Nov 2020 and revealed an EF of 35% with global hypokinesis, plus grade 3 diastolic dysfunction. A limited bedside Echo done yesterday, and showed his LVEF is 25-30%, with apical thinning and akinesis, other saleh hypokinetic. We received results of his last (yearly) Echo done in Jul 2021, from his Extract Puller's office (Dr Colvin), and the apical wall motion abnormality is new. Low-sodium diet ordered. Strict I's and O's and daily weights ordered. Follow BNP, BMP and Mg daily. We will continue Lasix 40 mg IV twice daily today, then change to po Lasix tomorrow. Continue Carvedilol Will decrease Losartan from bid to daily, due to "soft" BP Will start Spironolactone 25 mg daily, given LVEF of 25-30% now, by Echo done yesterday. Will schedule stress test to determine if ischemia is cause of new apical wall motion abnormality and cause of CHF exacerbation. Will do this tomorrow because he drank caffeine at 0500 this morning, and do a non-walking Lexiscan test due to SOB w/ walking from COPD/CHF. (2) Elevated troponin Conclusion/Plan: His troponins are elevated in the 130s but this flat, consistent with CHF. 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 from the LV wall motion abnormalities, not from primary valvular pathology (like MVP, for example). (4) Hx of coronary artery disease Conclusion/Plan: He has a known history of coronary artery disease with stents and then CABG in 2017. His troponin is elevated as mentioned above but is likely due to the heart failure. We will continue his home Carvedilol, aspirin, statin. Since theLV apical wall motion abnormality is new, we will perform a stress test to check for ischemia, since he says his last stress test was in 2017. Planning his stress test tomorrow, after further diuresis, so that he can lie flat for nuclear images, since he still has audible rales today (5) CKD (chronic kidney disease) Conclusion/Plan: He has chronic kidney disease likely secondary to his diabetes. His creatinine is 1.6>> 1.7>> 1.8 today. We will continue diuresis with IV Lasix today and we resumed his home Losartan yesterday. Will start new Spironolactone today. Avoid nephrotoxins Follow BMP daily. He has an appointment at [facility] tomorrow with Nephrology, which we will allow him to keep Qualifiers: Chronic kidney disease stage: stage 3 (moderate) Chronic kidney disease stage 3 subtype: stage 3b (GFR 30-44) Qualified Code(s): N18.32 - Chronic kidney disease, stage 3b (6) Insulin dependent diabetes mellitus Conclusion/Plan: His blood glucose is around 200. Checking A1c (it was taken yesterday, is not back yet, as it is now a send out lab to [facility], as of this month). We have resumed his home Lantus plus sliding scale. Carb controlled diet ordered. (7) BPH (benign prostatic hyperplasia) Conclusion/Plan: Continuing his Flomax. (8) BABATUNDE on CPAP Conclusion/Plan: He used his home CPAP device here last night, brought it in. (9) COPD He does not appear to be in COPD exacerbation currently. We resumed his scheduled bronchodilators and added prn inhaler use. - Current Meds Current Meds: Current Medications Generic Name Dose Route Start Last Admin Trade Name [place] PRN Reason Stop Dose Admin Acetaminophen 650 mg 03/02/22 14:21 03/03/22 06:49 Acetaminophen 325 Mg Tablet PO 650 mg Q4HR PRN Administration Pain 1 to 4, or Fever Albuterol/Ipratropium 3 ml 03/03/22 08:00 03/04/22 06:11 Ipratropium/Albuterol 3 Ml Neb INH 3 ml RTQID DORA Administration Aspirin 81 mg 03/03/22 09:00 03/04/22 08:12 Aspirin Ec 81 Mg Tablet PO 81 mg DAILY DORA Administration Atorvastatin Calcium 40 mg 03/02/22 21:00 03/03/22 20:42 Atorvastatin 40 Mg Tablet PO 40 mg QPM DORA Administration Benzonatate 100 mg 03/02/22 16:55 03/02/22 19:29 Benzonatate 100 Mg Capsule PO 100 mg TID PRN Administration Cough Carvedilol 25 mg 03/02/22 21:00 03/04/22 08:12 Carvedilol 12.5 Mg Tablet PO 25 mg BID DORA Administration Diphenhydramine HCl 25 mg 03/02/22 23:59 03/03/22 22:10 Diphenhydramine 25 Mg Capsule PO 25 mg QPM PRN Administration Insomnia Enoxaparin Sodium 40 mg 03/03/22 09:00 03/04/22 08:12 Enoxaparin 40 Mg/0.4 Ml Syringe SUBQ 40 mg DAILY DORA Administration Furosemide 40 mg 03/03/22 06:00 03/04/22 06:00 Furosemide 40 Mg/4 Ml Vial IVP 03/04/22 23:00 40 mg BIDDIURETIC DORA Administration Insulin Aspart 2 - 10 unit 03/03/22 08:00 03/04/22 07:42 Insulin Aspart 300 Unit/3 Ml Pen SUBQ Not Given 0800,1200,1700,2100 [facility] Protocol Insulin Glargine 25 unit 03/02/22 21:00 03/03/22 20:43 Insulin Glargine 300 Unit/3 Ml Pen SUBQ 25 unit QPM DORA Administration Losartan Potassium 50 mg 03/04/22 09:00 03/04/22 08:12 Losartan 50 Mg Tablet PO 50 mg DAILY DORA Administration Ondansetron HCl 4 mg 03/02/22 14:21 03/03/22 06:49 Ondansetron Odt 4 Mg Tablet TL 4 mg Q6HR PRN Administration Nausea / Vomiting Polyethylene Glycol 17 gm 03/04/22 09:00 03/04/22 08:12 Polyethylene Glycol 3350 17 Gm Packet PO 17 gm DAILY DORA Administration Sodium Chloride 10 ml 03/02/22 14:21 03/03/22 14:23 Sodium Chloride Flush 0.9% 10 Ml Syringe IVP 10 ml PRN PRN Administration NEEDED PER PROVIDER ORDERS Sodium Chloride 10 ml 03/02/22 17:00 03/04/22 08:12 Sodium Chloride Flush 0.9% 10 Ml Syringe IVP 10 ml 0100,0900,1700 DORA Administration Tamsulosin HCl 0.4 mg 03/02/22 21:00 03/03/22 20:42 Tamsulosin 0.4 Mg Capsule PO 0.4 mg HS DORA Administration - Lab Result Fish Bone Diagrams: 03/04/22 04:58 03/04/22 04:58 - Additional Planning My Orders: My Active Orders 03/03/22 07:35 Nebulizer/MDI Tx. [RC] QID Resp Teach Nebulizer/MDI [RC] .ONCE Albuterol 2.5 mg INH Q4H PRN 03/03/22 08:00 Ipratropium/Albuterol [Duoneb] 3 ml INH RTQID 03/04/22 09:00 Losartan [Cozaar] 50 mg PO DAILY Spironolactone [Aldactone] 25 mg PO DAILY polyethylene glycoL 3350 [Miralax] 17 gm PO DAILY 03/05/22 00:01 NPO except Meds at Midnight [DIET] 03/05/22 08:00 Myocardial Perfusion STR/RST [NM] Routine Furosemide [Lasix] 40 mg PO DAILYWM 03/05/22 08:21 Stress Test Prep [RC] .ONCE Subjective - Subjective Patient Reports: Feeling Better, Shortness of Breath (He is on room air with adequate sats at rest this a.m. but feels "air hunger".) Objective Vital Signs: Vital Signs - 24 hr 03/03/22 03/03/22 03/03/22 10:46 11:23 14:20 Temperature 36.6 C Heart Rate 72 Heart Rate [ 79 Brachial] Heart Rate [ 70 Monitoring electrodes] Respiratory 20 18 97 H Rate Blood Pressure 123/67 127/52 L [Right Brachial artery] O2 Saturation 97 2 L 03/03/22 03/03/22 03/03/22 15:15 15:30 19:17 Temperature 36.6 C Heart Rate 73 92 Heart Rate [ 72 Brachial] Heart Rate [ Monitoring electrodes] Respiratory 19 19 18 Rate Blood Pressure 109/54 L [Right Brachial artery] O2 Saturation 92 03/03/22 03/03/22 03/03/22 20:43 20:50 23:46 Temperature 36.8 C 36.3 C L Heart Rate Heart Rate [ 77 64 Brachial] Heart Rate [ Monitoring electrodes] Respiratory 20 22 22 Rate Blood Pressure 116/53 L 107/56 L [Right Brachial artery] O2 Saturation 92 94 92 03/04/22 03/04/22 03/04/22 05:00 06:12 07:32 Temperature 36.5 C 36.6 C Heart Rate 88 Heart Rate [ 71 67 Brachial] Heart Rate [ Monitoring electrodes] Respiratory 18 18 16 Rate Blood Pressure 127/72 125/65 [Right Brachial artery] O2 Saturation 92 94 Oxygen O2 Source Room air Oxygen Flow Rate 1 I&O (Last 24 Hrs): Intake and Output Totals x24h 03/02/22 03/03/22 03/04/22 23:59 23:59 23:59 Intake Total 100 1150 240 Output Total 900 1850 700 Balance -800 -700 -460 General: Alert, Oriented x3, No acute distress HEENT: Atraumatic, EOMI Neck: Supple, No JVD Neuro: Alert, Non Focal Cardiovascular: Regular rate, Other (distant heart sounds) Respiratory: Rales (Rales heard up 3/4 on L posteriorly and at base on R posteriorly) Abdomen: Soft, Other (Obese) Extremities: No clubbing, No edema - Results Results: Laboratory Results WBC 7.3 x10^3/uL (4.8-10.8) 03/04/22 04:58 RBC 3.00 10^6/uL (4.70-6.10) L 03/04/22 04:58 Hgb 9.1 g/dL (14.0-18.0) L 03/04/22 04:58 Hct 29.7 % (42.0-52.0) L 03/04/22 04:58 MCV 99.0 fL (80.0-94.0) H 03/04/22 04:58 MCH 30.3 pg (27.0-31.0) 03/04/22 04:58 MCHC 30.6 g/dL (32.0-36.0) L 03/04/22 04:58 RDW 15.0 % (12.0-15.0) 03/04/22 04:58 Plt Count 189 10^3/uL (130-450) 03/04/22 04:58 MPV 10.4 fL (7.4-11.4) 03/04/22 04:58 Neut # (Auto) 5.9 10^3/uL (1.5-6.6) 03/04/22 04:58 Lymph # (Auto) 0.7 10^3/uL (1.5-3.5) L 03/04/22 04:58 [place] # (Auto) 0.6 10^3/uL (0.0-1.0) 03/04/22 04:58 Eos # (Auto) 0.0 10^3/uL (0.0-0.7) 03/04/22 04:58 Baso # (Auto) 0.0 10^3/uL (0.0-0.1) 03/04/22 04:58 Absolute Nucleated RBC 0.00 x10^3/uL 03/04/22 04:58 Nucleated RBC % 0.0 /100WBC 03/04/22 04:58 Sodium 139 mmol/L (135-145) 03/04/22 04:58 Potassium 4.4 mmol/L (3.5-5.0) 03/04/22 04:58 Chloride 103 mmol/L (101-111) 03/04/22 04:58 Carbon Dioxide 27 mmol/L (21-32) 03/04/22 04:58 Anion Gap 9.0 (6-13) 03/04/22 04:58 BUN 57 mg/dL (6-20) H 03/04/22 04:58 Creatinine 1.8 mg/dL (0.6-1.2) H 03/04/22 04:58 Estimated GFR (MDRD) 37 (>89) L 03/04/22 04:58 Glucose 137 mg/dL (70-100) H 03/04/22 04:58 POC Whole Bld Glucose 113 mg/dL (70 - 100) H 03/04/22 07:26 Calcium 8.4 mg/dL (8.5-10.3) L 03/04/22 04:58 Magnesium 1.9 mg/dL (1.7-2.8) 03/04/22 04:58 Total Bilirubin 0.6 mg/dL (0.2-1.0) 03/02/22 09:44 AST 25 IU/L (10-42) 03/02/22 09:44 ALT 33 IU/L (10-60) 03/02/22 09:44 Alkaline Phosphatase 70 IU/L (42-121) 03/02/22 09:44 Troponin I High Sens 133.1 ng/L (2.3-19.7) H* 03/02/22 15:30 B-Natriuretic Peptide 1077 pg/mL (5-100) H 03/04/22 04:58 Total Protein 6.6 g/dL (6.7-8.2) L 03/02/22 09:44 Albumin 3.5 g/dL (3.2-5.5) 03/02/22 09:44 Globulin 3.1 g/dL (2.1-4.2) 03/02/22 09:44 Albumin/Globulin Ratio 1.1 (1.0-2.2) 03/02/22 09:44 Lipase 25 U/L (22-51) 03/02/22 09:44 Nasal Adenovirus (PCR) NOT DETECTED 03/02/22 10:02 Nasal B. parapertussis DNA (PCR) NOT DETECTED 03/02/22 10:02 Nasal Coronavir 229E PCR NOT DETECTED 03/02/22 10:02 Nasal Coronavir HKU1 PCR NOT DETECTED 03/02/22 10:02 Nasal Coronavir NL63 PCR NOT DETECTED 03/02/22 10:02 Nasal Coronavir OC43 PCR NOT DETECTED 03/02/22 10:02 Nasal Enterovir/Rhinovir PCR NOT DETECTED 03/02/22 10:02 Nasal Influenza B PCR NOT DETECTED 03/02/22 10:02 Nasal Influenza A PCR NOT DETECTED 03/02/22 10:02 Nasal Parainfluen 1 PCR NOT DETECTED 03/02/22 10:02 Nasal Parainfluen 2 PCR NOT DETECTED 03/02/22 10:02 Nasal Parainfluen 3 PCR NOT DETECTED 03/02/22 10:02 Nasal Parainfluen 4 PCR NOT DETECTED 03/02/22 10:02 Nasal RSV (PCR) NOT DETECTED 03/02/22 10:02 Nasal B.pertussis DNA PCR NOT DETECTED 03/02/22 10:02 Nasal C.pneumoniae (PCR) NOT DETECTED 03/02/22 10:02 Kevin Human Metapneumo PCR NOT DETECTED 03/02/22 10:02 Nasal M.pneumoniae (PCR) NOT DETECTED 03/02/22 10:02 Nasal SARS-CoV-2 (PCR) NOT DETECTED 03/02/22 10:02 Ref Lab Test Result REPORT 03/03/22 05:09
[2022-03-04] MEDS: SPIRONOLACTONE 25 MG TABLET PO SCH (09:03)
[2022-03-04] MEDS: SODIUM CHLORIDE FLUSH 0.9% 10 ML SYRINGE IVP PRN (13:56)
[2022-03-04] MEDS: ACETAMINOPHEN 325 MG TABLET PO PRN (16:15)
[2022-03-04] MEDS: ATORVASTATIN 40 MG TABLET PO SCH (20:31)
[2022-03-04] MEDS: TAMSULOSIN 0.4 MG CAPSULE PO SCH (20:31)
[2022-03-04] MEDS: INSULIN GLARGINE 300 UNIT/3 ML PEN SUBQ SCH (21:15)
[2022-03-05] MEDS: SODIUM CHLORIDE FLUSH 0.9% 10 ML SYRINGE IVP SCH ×3 (00:07→17:17)
[2022-03-05 04:58] LABS: BASOPHILS % (AUTO) 0.5 %; EOSINOPHILS # (AUTO) 0.1 10^3/uL (0.0-0.7); EOSINOPHILS % (AUTO) 1.6 %; HCT - HEMATOCRIT 30.2 % (42.0-52.0); HGB - HEMOGLOBIN 9.4 g/dL (14.0-18.0); LYMPHOCYTES # (AUTO) 0.8 10^3/uL (1.5-3.5); MEAN CORPUSCULAR HGB CONC 31.1 g/dL (32.0-36.0); MEAN CORPUSCULAR VOLUME 96.5 fL (80.0-94.0); MEAN PLATELET VOLUME 10.4 fL (7.4-11.4); MONOCYTES # (AUTO) 0.6 10^3/uL (0.0-1.0); MONOCYTES % (AUTO) 9.5 %; NEUTROPHILS # (AUTO) 4.3 10^3/uL (1.5-6.6); NEUTROPHILS % (AUTO) 74.2 %; PLT - PLATELET COUNT 196 10^3/uL (130-450); RED BLOOD COUNT 3.13 10^6/uL (4.70-6.10); WHITE BLOOD COUNT 5.8 x10^3/uL (4.8-10.8)
[2022-03-05 05:06] LABS: CALCIUM 8.3 mg/dL (8.5-10.3); CREATININE 1.8 mg/dL (0.6-1.2)
[2022-03-05] MEDS: IPRATROPIUM/ALBUTEROL 3 ML NEB INH SCH ×3 (07:54→14:54)
[2022-03-05] MEDS ORDERED: FUROSEMIDE 40 MG TABLET PO SCH (08:00)
[2022-03-05] MEDS: polyethylene glycoL 3350 17 GM PACKET PO SCH (08:17)
[2022-03-05] MEDS: ASPIRIN EC 81 MG TABLET PO SCH (08:17)
[2022-03-05] MEDS: LOSARTAN 50 MG TABLET PO SCH (08:18)
[2022-03-05] MEDS: carvediloL 12.5 MG TABLET PO SCH (08:18)
[2022-03-05] MEDS: ENOXAPARIN 40 MG/0.4 ML SYRINGE SUBQ SCH (08:19)
[2022-03-05] MEDS: SPIRONOLACTONE 25 MG TABLET PO SCH (08:19)
[2022-03-05] MEDS: INSULIN ASPART 300 UNIT/3 ML PEN SUBQ SCH ×3 (08:20→17:16)
[2022-03-05] MEDS ORDERED: REGADENOSON 0.4 MG/5 ML SYRINGE IVP ONE ×2 (14:51→17:17)
--- NOTE | 2022-03-05 15:39 | CARDIAC PROCEDURE NOTE ---
Stress Test Report Service Date: 03/05/22 Ordering Provider: Dr De La Cruz / Dr Fernandes (Manager Sales And Marketing) Indication for Test: New wall motion abnormality by Echo, causing CHF exacerbation Hx CAD with stents and CABGs Cardiac Risk Factors: Male gender, Obesity, DM, hyperlipidemia Type of Stress Test: Pharmacologic Stress Test with MPI Pharmacologic Agent: Lexiscan Procedure: After signing informed consent, the patient underwent a pharmaceutical stress test using Lexiscan with nuclear myocardial perfusion imaging. Resting heart rate: 72 Peak heart rate: 100 Resting blood pressure: 138/71 Peak blood pressure: 131/73 Lexiscan was infused per protocol. The patient performed isometric exercise. The patient had flushing and moderate shortness of breath, no chest pain or nausea. Aminophylline 25 mg IV was given for reversal of symptoms. EKG at rest: Normal sinus rhythm, LA enlgm, poor R wave progression anteriorly. EKG at peak: Frequent PVCs, no ischemic ST segment or T wave changes noted. Summary: 1) Patient had only shortness of breath during Lexiscan pharmaceutical stress testing. 2) No ischemic changes noted by EKG criteria 3) Nuclear images were reported separately and showed: Large, fixed perfusion defect involving the apex, anterior apex, inferior apex and lateral apical saleh with mild meng-infarct ischemia. 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
[2022-03-05] MEDS ORDERED: AMINOPHYLLINE 500 MG/20 ML VIAL ONE (16:02)
--- NOTE | 2022-03-05 17:35 | Nuclear Medicine Report ---
PROCEDURE: Rest and exercise myocardial perfusion SPECT with gated imaging and ejection fraction INDICATIONS: CHF, new apical wall motion abn, suspect ischemia RADIOPHARMACEUTICAL: 10.7 mCi Tc-99m Myoview IV at rest and 39.4 mCi Tc-99m Myoview IV at peak exerc ise. [id number] was performed. TECHNIQUE: Radiopharmaceutical was injected at peak stress test, and also at rest. SPECT images wer e obtained. SPECT myocardial perfusion images were displayed in short axis, horizontal long axis, an d vertical long axis views. Gated images were reviewed using Auto[employer] software. COMPARISON: None available. FINDINGS: Raw data: There is good myocardial labeling by radiotracer. No significant motion artifacts. Lung- to-heart ratio is 0.46 (normal is less than 0.46 for tetrafosmin tracer). Left ventricle function: Gated images demonstrate normal left ventricle wall thickening. Global left ventricular hypokinesis. No transient ischemic dilation; TID is 1.00 (normal less than 1.30). The l eft ventricle resting end-diastolic volume is 208 mL. Left ventricle stress ejection fraction is 40% ; normal values are above 45%. Myocardial perfusion: There is a large fixed perfusion defect involving the apical, anteroapical, in feroapical and lateral apical saleh compatible with area of infarction. There is mildly intense rever sible perfusion defect adjacent to the area of infarction compatible with meng-infarct ischemia. IMPRESSION: 1. Abnormal myocardial perfusion study. Large area of infarction involving the apical, anteroapical, inferoapical and lateral apical saleh with mild meng-infarct ischemia. 2. Abnormal left ventricular function with global hypokinesis and decreased stress ejection fraction of 40%. Left ventricle is enlarged with resting end-diastolic volume of 208 mL. PQRS ATTESTATIONS: Measure 322 - Is this imaging test primarily performed on a low-risk surgery patient for preoperative evaluation within 30 days preceding their low-risk non-cardiac surgery? Low-risk surgery is defined as cardiac or myocardial infarction less than 1%, including (but not limited to) endoscopic pr ocedures, superficial procedures, cataract surgery, and excisional breast surgery: Answer: No Measure 323 - Is this imaging test performed primarily for the monitoring of an asymptomatic patient who had percutaneous coronary intervention on the visit date or within 2 years of the visit date? An swer: No Measure 324 - Is this imaging test performed primarily for the initial detection and risk assessment on an asymptomatic, low coronary heart disease patient? Low CHD risk definition = clinicians should consider the maximum number of available patient factors used to estimate risk based on [place] (A TP III criteria), typically age, gender, diabetes, smoking status, and use of blood pressure medicati on, and integrate age appropriate estimates for missing elements, such as LDL or standard blood press ure. Answer: No Reviewed by: Valentina Olivas MD, PhD on 03/05/2022 5:33 PM PDT Approved by: Valentina Olivas MD, PhD on 03/05/2022 5:33 PM PDT Station ID: [id number]
--- NOTE | 2022-03-05 17:50 | Discharge Plan ---
Discharge Plan Problem Reviewed?: Yes Disposition: Home, Self Care Condition: Serious Prescriptions: Furosemide [Lasix] 40 mg PO DAILY #30 tablet Diet: Diabetic (and Low sodium and cardiac/ Low cholesterol diet) Activity Restrictions: Activity as Tolerated Shower Restrictions: No Driving Restrictions: No Instruction Topics: Heart Failure Warning Signs, Heart Failure Tracking Weight, Heart Failure Diet Changes Health Concerns: You were admitted to the hospital because of congestive heart failure (with marked fluid retention in your lungs). We had to adjust your medications to treat that and several new medications have been started. The Echocardiogram showed that part of your heart muscle is not working. Therefore you had a stress test to see if that area not working, because it was scarred (or ) and in fact it is, therefore there has been a prior heart attack sometime in your past. You are being sent home with the results of that stress test, to show Dr. Rubio at your next office visit. Please follow the new list of medications. All new prescriptions were electronically sent to your [facility] pharmacy in [place]. You qualify for attending cardiac rehab classes here, because of your CHF. A referral to cardiac rehab would have to be made by your primary care doctor or your merchant miller. Plan of Treatment: As above. Care Goals: Improvement in symptoms and stabilization are the goals. Assessment: The patient understands and is agreeable with the plan. Additional Instructions or Follow Up instructions: Please remember to take the Lasix only on Wednesday, Wednesday, Wednesday, but if you are gaining weight or seeing ankle swelling or become very short of breath, take the Lasix every day for about a week, then go back to every Wednesday, Wednesday, Wednesday. If you have new or severely worsening symptoms, call your PCP or Car Dumper for advice, or come to the ED. Follow-Up Care: [facility] - CHF Classes No Smoking: If you smoke, Please STOP! Call for help. Follow-up with: Zenon Botello MD [Provider Admit Priv/Credential] - Tiera Fernandes MD [Physician No Access] -
--- NOTE | 2022-03-05 18:10 | DISCHARGE SUMMARY ---
Discharge Summary Admit Date: 03/02/22 Discharge Date: 03/05/22 Discharging Provider: Dr Vilma De La Cruz Primary Care Provider: Dr Sukumar Boetllo Code Status: Attempt Resuscitation Condition at Discharge: Stable Discharge Disposition: 01 Home, Self Care - HPI History of Present Illness: From the admission H&P of Dr Silvino Zabala: This is a 81-year-old male with a past medical history significant for chronic systolic heart failure with reduced ejection fraction, mitral regurgitation, CKD stage III, insulin-dependent diabetes mellitus, coronary artery disease status post CABG who presents today complaining of worsening shortness of breath. He states his symptoms began this past Wednesday and he saw his primary care physician a few days later. The patient reports there was concern for possible pneumonia or a flareup of his COPD. He was prescribed a higher dose of albuterol and the patient states he was taking this via nebulizer but has not had much improvement in his symptoms. He states his dyspnea is worse with activity. He has no chest pain, fever, chills. He has an occasional nonproductive cough. He has had orthopnea which has been most prominent over the past 2 days. He reports sleeping only 3 hours over the past 2 nights due to the dyspnea. He does see Dr. Jay of nephrology and the patient recalls having his Lasix discontinued about a month ago as he did not have any lower extremity edema. He reports having a history of 2 stents and a CABG back in 2017. He is followed by Dr. Fernandes of cardiology at [facility]. He is not on home oxygen. Here in the emergency department, it was noted that he was hypoxic in the mid 80s on room air. His chest x-ray suggested pulmonary edema and his BNP was elevated. His EKG did not suggest ischemia. Initial troponin was elevated in the 130s but this is flat on recheck. Given the above findings, medicine was consulted for admission. We discussed goals of care and he would like to be a full code. If he were to have anoxic brain injury then he would not want to remain on a ventilator or life support. - HOSPITAL COURSE Hospital Course: (1) Acute on chronic HFrEF (heart failure with reduced ejection fraction) This CHF exacerbation was partly due to the discontinuation of his home furosemide 1 month ago, by his Neprologist. He was put on supplemental oxygen via nasal cannula, which was weaned to room air in several days. His BNP 1500>> 3000>> 1000 improved, after iv Lasix was given for several days. We continued his home dose of Carvedilol and Losartan. His last Echocardiogram here, was done Nov 2020 and revealed an EF of 35% with global hypokinesis, and grade 3 diastolic dysfunction. A limited bedside Echo was done early during this admission and showed his LVEF was 25-30%, with apical thinning and akinesis, other saleh hypokinetic. He was started on Spirinolactone. We then received results of his most recent Echo done in Jul 2021, from his Systems Security Analyst's office (Dr Colvin) to compare, and the apical wall motion abnormality is new. He therefore underwent a stress test to evaluate for ischemia vs scar (see #3). (2) Elevated troponin His troponins were elevated in the 130s but in a flat pattern, consistent with CHF. (3) Hx of coronary artery disease He has a known history of coronary artery disease with stents and then CABG in 2017. His troponins here were flat, ruling him out for an acute [place]. Since the LV apical wall motion abnormality by our Echo was new, he underwent a (Lexiscan- Nuclear) stress test to check for ischemia vs scar. There were no ischemic EKG changes during stress and the nuclear scan revealed a large apical scar with mild meng-infarct ischemia and LVEF 40%. He was not discharged on Spironolactone. The stress test report was given to the patient to give to and discuss with his Systems Security Analyst. (4) Mitral regurgitation Moderate-severe MR was reported on the Echocardiogram from 07/[address] Fernandes's office, and that report indicated that this is "Ischemic Mitral Regurg", ie. from the LV wall motion abnormalities, not from primary valvular pathology. (5) CKD (chronic kidney disease) He has chronic kidney disease likely secondary to his diabetes. His creatinine was 1.6-1.8 while here. He required IV Lasix twice daily for several days here, but at the time of discharge was sent home with Lasix 40 mg to take on Wednesday, Wednesday, Fridays only, and instructions to increase it to daily only if he had weight gain, ankle edema or shortness of breath. He was advised to let his Staff Counselor know of this Lasix use. (6) Insulin dependent diabetes mellitus He was on a carb controlled diet, we resumed his home Lantus Insulin plus used a sliding scale for coverage. His A1c blood test was done but not back yet, as it is now a send out lab to [facility]. (7) BPH (benign prostatic hyperplasia) We continued his Flomax. (8) BABATUNDE on CPAP He used his home CPAP device here last night. (9) COPD He did not appear to be in COPD exacerbation. We continued his scheduled bronchodilators and added prn inhaler use. - ALLERGIES Allergies/Adverse Reactions: Allergies Allergy/AdvReac Type Severity Reaction Status Date / Time pneumococcal vaccine Allergy Anaphylaxis Verified 03/02/22 09:23 oxycodone [From Percodan] AdvReac Hives Verified 03/02/22 09:23 - MEDICATIONS Home Medications: Ambulatory Orders Medication Instructions Recorded Confirmed Aspirin [Adult Aspirin Regimen] 81 mg PO DAILY 06/06/20 03/02/22 Atorvastatin [Lipitor] 40 mg PO QPM 06/06/20 03/02/22 Carvedilol [Coreg] 25 mg PO BID 06/06/20 03/02/22 Insulin Glargine [Lantus Solostar] 35 units SQ QPM 06/06/20 03/02/22 Losartan [Cozaar] 50 mg PO BID 06/06/20 03/02/22 Tamsulosin [Flomax] 0.4 mg PO DAILY 12/02/20 03/02/22 Albuterol 2.5 mg INH QID PRN 03/02/22 03/02/22 Hydrocodone/Acetaminophen 1 each PO Q6H PRN 03/02/22 03/02/22 [Hydrocodone-Acetamin 10-325 mg] Insulin Aspart [NovoLOG] 2 - 12 unit SUBQ QDDINNER 03/02/22 03/02/22 Ipratropium [Atrovent] 0.5 mg INH QID PRN 03/02/22 03/02/22 Furosemide [Lasix] 40 mg PO DAILY #30 tablet 03/05/22 - PHYSICAL EXAM AT DISCHARGE General Appearance: positive: No acute distress, Alert Eyes Bilateral: positive: Normal inspection, EOMI ENT: positive: ENT inspection nml, No signs of dehydration Neck: positive: Nml inspection, No JVD Respiratory: positive: No respiratory distress, Breath sounds nml Cardiovascular: positive: Regular rate & rhythm, Systolic murmur Abdomen: positive: Non-tender, Nml bowel sounds, Other (Obese) Skin: positive: Warm, Dry Extremities: positive: Non-tender, No pedal edema Neurologic/Psychiatric: positive: Oriented x3 (Non-focal) - LABS Result Diagrams: 03/05/22 04:45 03/05/22 04:45 - DIAGNOSTIC IMAGING Diagnostic Imaging Results: Final report reviewed - FOLLOW UP Follow Up: See PCP in 1-2 weeks, and Cardiology and Nephrology as already scheduled. - TIME SPENT Time Spent in Discharge (Minutes): 60
[2022-03-05 18:14] VITALS: BP 150/61
== END 2022-03-05 18:32 | disposition home or self-care (01) | DRG 293 ==
LOC: ED 09:18 → MS2 14:21
PROVIDERS: ADMIT Internal Medicine; ATTEND Internal Medicine
DX: I50.9 Heart failure, unspecified (principal); J44.1 Chronic obstructive pulmonary disease with (acute) exacerbation; Z20.822 Contact with and (suspected) exposure to COVID-19; I50.23 Acute on chronic systolic (congestive) heart failure; I25.10 Atherosclerotic heart disease of native coronary artery without angina pectoris; I25.5 Ischemic cardiomyopathy; Z87.891 Personal history of nicotine dependence; J44.9 Chronic obstructive pulmonary disease, unspecified; I34.0 Nonrheumatic mitral (valve) insufficiency; E11.22 Type 2 diabetes mellitus with diabetic chronic kidney disease; N18.32 Chronic kidney disease, stage 3b; N40.0 Benign prostatic hyperplasia without lower urinary tract symptoms; G47.33 Obstructive sleep apnea (adult) (pediatric); E66.9 Obesity, unspecified; E78.5 Hyperlipidemia, unspecified; R77.8 Other specified abnormalities of plasma proteins; Z68.32 Body mass index [BMI] 32.0-32.9, adult; Z79.4 Long term (current) use of insulin; Z79.82 Long term (current) use of aspirin; Z79.899 Other long term (current) drug therapy; Z82.49 Family history of ischemic heart disease and other diseases of the circulatory system; Z88.5 Allergy status to narcotic agent; Z88.7 Allergy status to serum and vaccine; Z95.1 Presence of aortocoronary bypass graft; Z95.5 Presence of coronary angioplasty implant and graft
CPT/HCPCS: 36415; 71045; 78452; 80048; 80053; 81599; 83690; 83735; 83880; 84484; 85025; 87633; 93005; 93017; 94640; 94664; 96374; 96375; 99283; 99285; A9270; A9500; J1650; J1815; J2785; Q0162; 83036

== ENCOUNTER → 2022-10-24 | Outpatient (CLI) | payer MEDICARE, OTHER | END | disposition EMS.NT | LOC: EMS 10:54 | DX: R53.83 Other fatigue (principal); R53.1 Weakness ==

== ENCOUNTER 2022-10-26 15:10 | Inpatient (IN) | payer MEDICARE, OTHER ==
--- NOTE | 2022-10-26 15:47 | ED Physician Documentation ---
History of Present Illness - Stated complaint Stated Complaint: GI BLEED - Chief complaint Chief Complaint: General - History obtained from History obtained from: Patient, Family, EMS - History of Present Illness Timing: How many weeks ago (2) Pain level max: 5 Pain level now: 3 - Additonal information Additional information: Patient is an 82-year-old male, history of CHF, COPD who presents to the emergency department complaint of generalized abdominal pain for 2 weeks. He states dark stools for the past 1 week. He uses home oxygen, he believes 2-1/2 to 3-1/2 L of nasal cannula. Per EMS he was wheezing upon arrival, given a DuoNeb treatment. Nothing makes abdominal pain better or worse. He states that he has had a colonoscopy in the past couple of years and states that he believes it was normal. He denies any history of GI bleeding in the past. Denies any history of cirrhosis. No varices. Nothing makes it better or worse Review of Systems Unable to obtain: Dementia Constitutional: denies: Fever, Chills Ears: denies: Ear pain Nose: denies: Rhinorrhea / runny nose, Congestion Respiratory: reports: Cough GI: reports: Bloody / black stool. denies: Abdominal Swelling, Vomiting, Diarrhea, Hematemesis : denies: Dysuria Skin: denies: Rash Musculoskeletal: denies: Neck pain, Back pain Neurologic: denies: Headache PD PAST MEDICAL HISTORY - Past Medical History Cardiovascular: Congestive heart failure, Coronary artery disease, Murmur, Valve disorder Respiratory: COPD, CPAP use Neuro: Dementia Endocrine/Autoimmune: Type 2 diabetes GI: None : Renal insuffiency Psych: None Musculoskeletal: Chronic back pain Derm: None - Past Surgical History General: Hiatal hernia repair Ortho: Knee replacement - Present Medications Home Medications: Ambulatory Orders Medication Instructions Recorded Confirmed Aspirin [Adult Aspirin Regimen] 81 mg PO DAILY 06/06/20 03/02/22 Atorvastatin [Lipitor] 40 mg PO QPM 06/06/20 03/02/22 Carvedilol [Coreg] 25 mg PO BID 06/06/20 03/02/22 Insulin Glargine [Lantus Solostar] 35 units SQ QPM 06/06/20 03/02/22 Losartan [Cozaar] 50 mg PO BID 06/06/20 03/02/22 Tamsulosin [Flomax] 0.4 mg PO DAILY 12/02/20 03/02/22 Albuterol 2.5 mg INH QID PRN 03/02/22 03/02/22 Hydrocodone/Acetaminophen 1 each PO Q6H PRN 03/02/22 03/02/22 [Hydrocodone-Acetamin 10-325 mg] Insulin Aspart [NovoLOG] 2 - 12 unit SUBQ QDDINNER 03/02/22 03/02/22 Ipratropium [Atrovent] 0.5 mg INH QID PRN 03/02/22 03/02/22 Furosemide [Lasix] 40 mg PO DAILY #30 tablet 03/05/22 - Allergies Allergies/Adverse Reactions: Allergies Allergy/AdvReac Type Severity Reaction Status Date / Time pneumococcal vaccine Allergy Anaphylaxis Verified 10/26/22 15:22 oxycodone [From Percodan] AdvReac Hives Verified 10/26/22 15:22 - Social History Does the pt smoke?: No Smoking Status: Former smoker Does the pt drink ETOH?: No Does the pt have substance abuse?: No - Immunizations Immunizations are current?: Yes PD ED PE NORMAL - Vitals Vital signs reviewed: Yes - General General: No acute distress, Other (Drowsy but arousable, falls asleep easily) - HEENT HEENT: PERRL, Moist mucous membranes - Neck Neck: Supple, no meningeal sign - Cardiac Cardiac: RRR, Strong equal pulses - Respiratory Respiratory: No respiratory distress, Other (Very diminished breath sounds bilaterally, mild wheezing) - Abdomen Abdomen: Soft, Non tender, Non distended - Rectal Rectal: Other (Small amount of bright red blood in the rectum. Brown stool) - Back Back: No CVA TTP, No spinal TTP - Derm Derm: Warm and dry - Extremities Extremities: Other (2+ pitting edema bilateral lower extremities) - Neuro Neuro: Other (Drowsy, but arousable, able answer questions, Oriented to person and place) Eye Opening: To Voice Motor: Obeys Commands Verbal: Confused GCS Score: 13 Results - Vitals Vitals: Vital Signs - 24 hr 10/26/22 10/26/22 10/26/22 15:23 17:20 17:27 Temperature 36.5 C Heart Rate 72 89 56 L Respiratory 16 20 Rate Blood Pressure 109/54 L 102/52 L O2 Saturation 96 96 If not protocol 4 : Oxygen Flow, liters/minute 10/26/22 10/26/22 18:06 20:12 Temperature 97.8 C H Heart Rate 47 L 105 H Respiratory 20 Rate Blood Pressure 92/49 L 119/65 O2 Saturation 99 99 If not protocol : Oxygen Flow, liters/minute Oxygen O2 Source Room air Oxygen Flow Rate 4 - EKG (time done) 1605 Rate: Rate (enter#) (60) Intervals: Prolonged RI, LBBB - Labs Labs: Microbiology 10/26/22 15:30 Occult Blood - Final Stool Laboratory Tests 10/26/22 10/26/22 10/26/22 15:52 15:52 15:52 WBC 2.9 L RBC 2.88 L Hgb 9.0 L Hct 31.5 L MCV 109.4 H MCH 31.3 H MCHC 28.6 L RDW 17.9 H Plt Count 58 L MPV 11.5 H Neut # (Auto) TOPOLOGY TEACHER Lymph # (Auto) TOPOLOGY TEACHER Aurora # (Auto) TOPOLOGY TEACHER Eos # (Auto) TOPOLOGY TEACHER Baso # (Auto) TOPOLOGY TEACHER Absolute Nucleated RBC TOPOLOGY TEACHER Total Counted 100 Band Neuts % (Manual) 0 Reactive Lymphs % (Man) 3 Abnorm Lymph % (Manual) 0 Nucleated RBC % TOPOLOGY TEACHER Neutrophils # (Manual) 2.6 Lymphocytes # (Manual) 0.2 L Monocytes # (Manual) 0.0 Eosinophils # (Manual) 0.1 Basophils # (Manual) 0.1 Differential Comment MANUAL DIFFERENTIAL Platelet Estimate DECREASED (<130,000) Platelet Morphology NORMAL APPEARANCE RBC Morph Micro Appear 1+ SCHISTOCYTES PT 12.9 H INR 1.2 APTT 33.9 H Sodium Potassium Chloride Carbon Dioxide Anion Gap BUN Creatinine Estimated GFR (MDRD) Glucose Calcium Total Bilirubin AST ALT Alkaline Phosphatase B-Natriuretic Peptide Total Protein Albumin Globulin Albumin/Globulin Ratio Lipase Nasal Adenovirus (PCR) Nasal B. parapertussis DNA (PCR) Nasal Coronavir 229E PCR Nasal Coronavir HKU1 PCR Nasal Coronavir NL63 PCR Nasal Coronavir OC43 PCR Nasal Enterovir/Rhinovir PCR Nasal Influenza B PCR Nasal Influenza A PCR Nasal Parainfluen 1 PCR Nasal Parainfluen 2 PCR Nasal Parainfluen 3 PCR Nasal Parainfluen 4 PCR Nasal RSV (PCR) Nasal B.pertussis DNA PCR Nasal C.pneumoniae (PCR) Kevin Human Metapneumo PCR Nasal M.pneumoniae (PCR) Nasal SARS-CoV-2 (PCR) Blood Type A NEGATIVE Blood Type Recheck Antibody Screen NEGATIVE 10/26/22 10/26/22 10/26/22 15:52 15:52 16:04 WBC RBC Hgb Hct MCV MCH MCHC RDW Plt Count MPV Neut # (Auto) Lymph # (Auto) Aurora # (Auto) Eos # (Auto) Baso # (Auto) Absolute Nucleated RBC Total Counted Band Neuts % (Manual) Reactive Lymphs % (Man) Abnorm Lymph % (Manual) Nucleated RBC % Neutrophils # (Manual) Lymphocytes # (Manual) Monocytes # (Manual) Eosinophils # (Manual) Basophils # (Manual) Differential Comment Platelet Estimate Platelet Morphology RBC Morph Micro Appear PT INR APTT Sodium 140 Potassium 5.6 H Chloride 100 L Carbon Dioxide 34 H Anion Gap 6.0 BUN 106 H* Creatinine 2.5 H Estimated GFR (MDRD) 25 L Glucose 113 H Calcium 8.1 L Total Bilirubin 0.5 AST 37 ALT 34 Alkaline Phosphatase 154 H B-Natriuretic Peptide 1419 H Total Protein 5.8 L Albumin 2.8 L Globulin 3.0 Albumin/Globulin Ratio 0.9 L Lipase 31 Nasal Adenovirus (PCR) NOT DETECTED Nasal B. parapertussis DNA (PCR) NOT DETECTED Nasal Coronavir 229E PCR NOT DETECTED Nasal Coronavir HKU1 PCR NOT DETECTED Nasal Coronavir NL63 PCR NOT DETECTED Nasal Coronavir OC43 PCR NOT DETECTED Nasal Enterovir/Rhinovir PCR NOT DETECTED Nasal Influenza B PCR NOT DETECTED Nasal Influenza A PCR NOT DETECTED Nasal Parainfluen 1 PCR NOT DETECTED Nasal Parainfluen 2 PCR NOT DETECTED Nasal Parainfluen 3 PCR NOT DETECTED Nasal Parainfluen 4 PCR NOT DETECTED Nasal RSV (PCR) NOT DETECTED Nasal B.pertussis DNA PCR NOT DETECTED Nasal C.pneumoniae (PCR) NOT DETECTED Kevin Human Metapneumo PCR NOT DETECTED Nasal M.pneumoniae (PCR) NOT DETECTED Nasal SARS-CoV-2 (PCR) NOT DETECTED Blood Type Blood Type Recheck Antibody Screen 10/26/22 17:05 WBC RBC Hgb Hct MCV MCH MCHC RDW Plt Count MPV Neut # (Auto) Lymph # (Auto) Aurora # (Auto) Eos # (Auto) Baso # (Auto) Absolute Nucleated RBC Total Counted Band Neuts % (Manual) Reactive Lymphs % (Man) Abnorm Lymph % (Manual) Nucleated RBC % Neutrophils # (Manual) Lymphocytes # (Manual) Monocytes # (Manual) Eosinophils # (Manual) Basophils # (Manual) Differential Comment Platelet Estimate Platelet Morphology RBC Morph Micro Appear PT INR APTT Sodium Potassium Chloride Carbon Dioxide Anion Gap BUN Creatinine Estimated GFR (MDRD) Glucose Calcium Total Bilirubin AST ALT Alkaline Phosphatase B-Natriuretic Peptide Total Protein Albumin Globulin Albumin/Globulin Ratio Lipase Nasal Adenovirus (PCR) Nasal B. parapertussis DNA (PCR) Nasal Coronavir 229E PCR Nasal Coronavir HKU1 PCR Nasal Coronavir NL63 PCR Nasal Coronavir OC43 PCR Nasal Enterovir/Rhinovir PCR Nasal Influenza B PCR Nasal Influenza A PCR Nasal Parainfluen 1 PCR Nasal Parainfluen 2 PCR Nasal Parainfluen 3 PCR Nasal Parainfluen 4 PCR Nasal RSV (PCR) Nasal B.pertussis DNA PCR Nasal C.pneumoniae (PCR) Kevin Human Metapneumo PCR Nasal M.pneumoniae (PCR) Nasal SARS-CoV-2 (PCR) Blood Type Blood Type Recheck A NEGATIVE Antibody Screen - Rads (name of study) Chest x-ray Radiology: Final report received, See rad report CT abdomen pelvis Radiology: Final report received, See rad report PD MEDICAL DECISION MAKING - ED course Complexity details: reviewed old records, reviewed results, re-evaluated patient, considered differential, d/w patient, d/w family, d/w alliances consultant ED course: Patient is an 82-year-old male brought in by EMS for reported GI bleed. He has also been coughing and having increased work of breathing. Family states that he has gradually been "going downhill". He does have a history of dementia. states that he does not really eat and drink anymore. He mostly sleeps. They state that he does not want to be intubated. They do have a POLST form but did not bring it with them. They are interested in discussing potential hospice to keep the patient comfortable. Discussed the case at length with his son and his . The patient was given Lasix. A Rivera catheter was placed to monitor urine output. He has significant pleural effusions on CT scan. There are no beds available in the hospital tonight. There are no beds available for transfer in the region. The patient will be kept in the emergency department, continued on IV Lasix and social work/hospice to see the patient and his family tomorrow. The patient will be signed out to the oncoming emergency department physician. I also discussed the case with Dr. Gutierrez, general surgery who recommends a repeat H&H and if the patient drops significantly, consult surgery at that time. This document was made in part using voice recognition software. While efforts are made to proofread this document, sound alike and grammatical errors may occur. Patient was given Lasix, Protonix and TXA Departure - Departure Disposition: 66 [facility] DC/Xfer Clinical Impression: Pleural effusion, Hypoxia GI bleed Qualifiers: GI bleed type/associated pathology: unspecified gastrointestinal hemorrhage type Qualified Code(s): K92.2 - Gastrointestinal hemorrhage, unspecified Anemia Qualifiers: Anemia type: unspecified type Qualified Code(s): D64.9 - Anemia, unspecified COPD (chronic obstructive pulmonary disease) Qualifiers: COPD type: unspecified COPD Qualified Code(s): J44.9 - Chronic obstructive pulmonary disease, unspecified CKD (chronic kidney disease) Qualifiers: Chronic kidney disease stage: unspecified stage Qualified Code(s): N18.9 - Chronic kidney disease, unspecified Congestive heart failure Qualifiers: Heart failure type: unspecified Heart failure chronicity: unspecified Qualified Code(s): I50.9 - Heart failure, unspecified Ascites Qualifiers: Ascites type: other type Qualified Code(s): R18.8 - Other ascites Condition: Stable Discharge Date/Time: 10/26/22 20:12
[2022-10-26] MEDS ORDERED: iohexoL-300 100 ML VIAL ONE (15:51)
[2022-10-26 16:04] LABS: EOSINOPHILS % (AUTO) 1.4 %; HCT - HEMATOCRIT 31.5 % (42.0-52.0); LYMPHOCYTES % (AUTO) 6.1 %; MEAN CORPUSCULAR HEMOGLOBIN 31.3 pg (27.0-31.0); MEAN CORPUSCULAR HGB CONC 28.6 g/dL (32.0-36.0); MEAN CORPUSCULAR VOLUME 109.4 fL (80.0-94.0); MEAN PLATELET VOLUME 11.5 fL (7.4-11.4); MONOCYTES % (AUTO) 5.4 %; NEUTROPHILS % (AUTO) 85.4 %; PLT - PLATELET COUNT 58 10^3/uL (130-450); RED BLOOD COUNT 2.88 10^6/uL (4.70-6.10); RED CELL DISTRIBUTION WIDTH 17.9 % (12.0-15.0); WHITE BLOOD COUNT 2.9 x10^3/uL (4.8-10.8)
[2022-10-26 16:09] LABS: ABNORMAL LYMPHS % (MANUAL) 0 %; BAND NEUTROPHILS % (MANUAL) 0 %
[2022-10-26 16:10] LABS: INR 1.2 (0.8-1.2); PT - PROTHROMBIN TIME 12.9 secs (9.9-12.6)
--- NOTE | 2022-10-26 16:11 | XRAY Report ---
PROCEDURE: Chest 1 View X-Ray INDICATIONS: cough TECHNIQUE: One view of the chest was acquired. COMPARISON: CXR 03/02/2022, 12/02/2020. FINDINGS: Surgical changes and devices: Post median sternotomy. Lungs and pleura: No pneumothorax. Diffuse prominent pulmonary markings similar to the prior exam. P robable small Denisse B line's. Probable small pleural effusions. Mediastinum: Mediastinal contours appear unchanged. Heart size is enlarged. Bones and chest wall: No suspicious bony lesions. Overlying soft tissues appear unremarkable. IMPRESSION: Suspect fluid overload/CHF. Suspect small bilateral pleural effusions. Cardiomegaly. Reviewed by: Salo Monsivais MD on 10/26/2022 4:10 PM PST Approved by: Salo Monsivais MD on 10/26/2022 4:10 PM PST Station ID: [id number]
[2022-10-26 16:17] LABS: PARTIAL THROMBOPLASTIN TIME 33.9 secs (24.9-33.3)
[2022-10-26 16:28] LABS: ALBUMIN 2.8 g/dL (3.2-5.5); ALBUMIN/GLOBULIN RATIO 0.9 (1.0-2.2); BILIRUBIN,TOTAL 0.5 mg/dL (0.2-1.0); CALCIUM 8.1 mg/dL (8.5-10.3); CREATININE 2.5 mg/dL (0.6-1.2); POTASSIUM 5.6 mmol/L (3.5-5.0); TOTAL PROTEIN 5.8 g/dL (6.7-8.2)
[2022-10-26] MEDS ORDERED: SODIUM CHLORIDE 0.9% 500 ML IV STA (16:49)
[2022-10-26] MEDS ORDERED: SODIUM CHLORIDE 0.9% 1,000 ML IV STA (16:49)
[2022-10-26] MEDS ORDERED: FUROSEMIDE 40 MG/4 ML VIAL IVP STA ×2 (16:50→18:56)
[2022-10-26 16:53] LABS: BASOPHILS # (MANUAL) 0.1 10^3/uL (0-0.1); BASOPHILS % (MANUAL) 2 %; EOSINOPHILS # (MANUAL) 0.1 10^3/uL (0-0.7); LYMPHOCYTES # (MANUAL) 0.2 10^3/uL (1.5-3.5); LYMPHOCYTES % (MANUAL) 3 %; NEUTROPHILS # (MANUAL) 2.6 10^3/uL (1.5-6.6); REACTIVE LYMPHS % (MANUAL) 3 %
[2022-10-26 16:54] LABS: PLATELET ESTIMATE, MANUAL DECREASED (<130,000) (NORMAL); PLATELET MORPHOLOGY NORMAL APPEARANCE (NORMAL)
[2022-10-26 16:56] LABS: DIFFERENTIAL COMMENT MANUAL DIFFERENTIAL
[2022-10-26] MEDS ORDERED: ALBUTEROL NEB 2.5 MG/3 ML INH STA (16:56)
[2022-10-26] MEDS ORDERED: PANTOPRAZOLE 40 MG VIAL IVP STA (16:56)
[2022-10-26] MEDS ORDERED: ALBUTEROL NEB 2.5 MG/3 ML INH ONE (17:09)
[2022-10-26] MEDS ORDERED: TRANEXAMIC ACID 1,000 MG in SODIUM CHLORIDE 0.9% 100ML 100 ML IV STA (17:11)
[2022-10-26] MEDS ORDERED: TRANEXAMIC ACID IN NACL 1,000 MG/100 ML BAG IV STA (17:15)
[2022-10-26 17:54] LABS: B. PARAPERTUSSIS- RESP PCR PAN NOT DETECTED; B. PERTUSSIS- RESP PCR PANEL NOT DETECTED; C. PNEUMONIAE- RESP PCR PANEL NOT DETECTED; CORONAVIRUS 229E-RESP PCR NOT DETECTED; CORONAVIRUS HKU1-RESP PCR NOT DETECTED; CORONAVIRUS NL63-RESP PCR NOT DETECTED; CORONAVIRUS OC43-RESP PCR NOT DETECTED; HUMAN METAPNEUMOVIRUS NOT DETECTED; INFLUENZA A- RESP PCR PANEL NOT DETECTED; INFLUENZA B - RESP PCR PANEL NOT DETECTED; M. PNEUMONIAE- RESP PCR PANEL NOT DETECTED; PARAINFLUENZA VIRUS 1 NOT DETECTED; PARAINFLUENZA VIRUS 2 NOT DETECTED; PARAINFLUENZA VIRUS 3 NOT DETECTED; PARAINFLUENZA VIRUS 4 NOT DETECTED; RHINOVIRUS/ENTEROVIRUS NOT DETECTED; RSV- RESP PCR PANEL NOT DETECTED; SARS-CoV-2 -RESP PCR PANEL NOT DETECTED
--- NOTE | 2022-10-26 18:06 | CT Report ---
PROCEDURE: ABDOMEN/PELVIS WO INDICATIONS: diffuse abd pain, rectal bleeding TECHNIQUE: Noncontrast 5 mm thick sections acquired from the diaphragms to the symphysis. 5 mm coronal and sagi ttal reformats were then performed. For radiation dose reduction, the following was used: automated exposure control, adjustment of mA and/or kV according to patient size. COMPARISON: None. FINDINGS: Image quality: Good Lower chest: Moderate bilateral pleural effusions. There are underlying consolidations. Superimposed atelectasis is probable. Cardiomegaly and coronary calcifications. Solid organs: No focal liver lesion. Evaluation is limited by noncontrast technique. Nonspecific mild pericholecystic fluid without distention. Cholelithiasis. No pathologic dilation of the biliary tree or pancreatic duct. No splenomegaly. Suspected left adrenal nodule is probably an adenoma. No hydron ephrosis. Vessels and lymph nodes: No abdominal aortic aneurysm. Moderate atherosclerotic calcifications. No pa thologic adenopathy by size criteria. Bowel and peritoneum: Small ascites. There is nonspecific perirectal fat stranding without significan t wall thickening. Colonic diverticula are present. No bowel obstruction identified. Body wall: Mild diffuse anasarca. Pelvis: Nonspecific perivesicular fat stranding. Prostate is not well evaluated. Small fat and ascite s containing left inguinal hernia. Bones: Scattered degenerative changes without acute or suspicious osseous finding. IMPRESSION: Multiple abnormalities above, but without an acute surgical abdomen identified. Suspected congestive heart failure and possible aspiration and/or pneumonia. Correlate with urinalysi s for perivesicular fat stranding. There may also be proctitis. Cholelithiasis. Pericholecystic fluid is nonspecific in the setting of ascites. Other findings as above. This is a limited noncontrast CT. Reviewed by: Rick Montoya MD on 10/26/2022 6:04 PM PST Approved by: Rick Montoya MD on 10/26/2022 6:04 PM PST Station ID: [id number]
[2022-10-26 23:00] LABS: HCT - HEMATOCRIT 33.6 % (42.0-52.0); HGB - HEMOGLOBIN 9.5 g/dL (14.0-18.0); MEAN CORPUSCULAR HEMOGLOBIN 31.5 pg (27.0-31.0); MEAN CORPUSCULAR HGB CONC 28.3 g/dL (32.0-36.0); MEAN CORPUSCULAR VOLUME 111.3 fL (80.0-94.0); MEAN PLATELET VOLUME 11.3 fL (7.4-11.4); RED BLOOD COUNT 3.02 10^6/uL (4.70-6.10); WHITE BLOOD COUNT 3.1 x10^3/uL (4.8-10.8)
[2022-10-26 23:20] LABS: CALCIUM 7.7 mg/dL (8.5-10.3); CREATININE 2.6 mg/dL (0.6-1.2); POTASSIUM 5.8 mmol/L (3.5-5.0)
--- NOTE | 2022-10-27 03:18 | HISTORY & PHYSICAL EXAMINATION ---
History and Physical - History and Physical Chief complaint Shortness of breath and weakness as well as abdominal pain History of present illness This is 82-year-old male who presented to emergency room with complaint of shortness of breath. Patient history of CHF and COPD. Patient is usually on 2 to 3 days oxygen by nasal cannula. Patient is having shortness of breath since last 1 week. He also complains of abdominal pain with melena since last few days. Patient is on aspirin at home. Patient received DuoNeb treatment by EMS. His oxygen saturation was in 70s on his home oxygen. Currently patient is on 6 to 8 L oxygen by nasal cannula. Patient denies any chest pain. There is no other family member present at the bedside. Patient denies any vomiting. He feels dizzy. Denies any diarrhea or dysuria. Patient received 80 mg of IV Lasix in the emergency room. Patient also received 40 mg of IV Protonix in the emergency room. Patient did not have much urine output since then. Review of system 14 point review of system was done. It was negative except as per history of present illness Past medical history Congestive heart failure COPD Chronic hypoxic respiratory failure Coronary artery disease status post CABG Diabetes mellitus type 2 Chronic kidney disease Chronic back pain Hypertension Dyslipidemia Benign prostatic hypertrophy Past surgical history Hiatal hernia repair and CABG and knee replacement Family history No history of cancer Social history Patient denies using any alcohol illicit drugs or tobacco products Home medications Reviewed Allergies Reviewed Physical examination Vital signs reviewed Head is atraumatic normocephalic Pupils are round and reactive to light and accommodation Neck no JVD no carotid bruits CVS regular rate and rhythm Respiration air entry bilaterally equal but decreased. 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 No focal deficits Skin no ulcers or rashes Musculoskeletal no calf tenderness EKG Not able to review myself but as per the documentation it was normal sinus rhythm with a heart rate of 60 with left bundle branch block and prolonged OK Labs Hemoglobin 9.0 platelet 58 INR 1.2 sodium 140 potassium 5.6 chloride 100 creatinine 2.5 BUN 106 viral panel was negative occult blood was positive CT scan of the abdomen pelvis was done which showed moderate bilateral effusion pleural Atelectasis and cardiomegaly, left adrenal nodule,. It also suspected congestive heart failure with possible aspirationpneumonia there is also proctitis cholelithiasis pericholecystic fluid as well. Assessment 1. Acute on chronic hypoxic respiratory failure 2. Acute CHF exacerbation, probably systolic and diastolic 3. Possible COPD exacerbation 4. GI bleed with melena 5. Suspected pneumonia, aspiration is a possibility as well 6. Questionable proctitis 7. Coronary artery disease, status post CABG 8. Acute on chronic renal failure 9. Hyperkalemia 10. Anemia, hemoglobin 9.0 11. Benign prostatic hypertrophy Plan Admit patient on telemetry Patient has multiple complex issues Patient received IV Lasix in the emergency room but did not have much urine output Continue Lasix 20 mg IV every 12 hours IV Protonix infusion Hold aspirin Hold other antihypertensive medications as blood pressure is at soft side IV Rocephin and Flagyl empirically for pneumonia/aspiration as well as proctitis Check daily input and output Follow daily BMP Possible hospice/palliative care consultation Check daily H&H Continue oxygen and breathing treatments We will avoid any steroid for possible COPD exacerbation due to GI bleed CODE STATUS DNR/DNI Total time taken for this was 70 minutes. This was telemedicine evaluation using bedside telemedicine audiovisual cart with the help of bedside nursing staff.
[2022-10-27] MEDS ORDERED: PANTOPRAZOLE 80 MG in SODIUM CHLORIDE 0.9% 100ML 100 ML IV STA (05:30)
[2022-10-27] MEDS ORDERED: cefTRIAXone 1 GM in SODIUM CHLORIDE 0.9% MINIBAG 100 ML IV STA (05:37)
[2022-10-27] MEDS: FUROSEMIDE 20 MG/2 ML VIAL IVP SCH ×2 (06:38→13:12)
[2022-10-27] MEDS: INSULIN REGULAR HUMAN 300 UNIT/3 ML VIAL SUBQ SCH ×2 (07:26→11:48)
[2022-10-27] MEDS: metroNIDAZOLE 500 MG/100 ML 500 MG/100 ML BAG IV SCH ×3 (07:39→21:36)
[2022-10-27] MEDS: SODIUM CHLORIDE FLUSH 0.9% 10 ML SYRINGE IVP SCH ×2 (07:41→17:33)
--- NOTE | 2022-10-27 12:12 | PHARMACY PROGRESS NOTE ---
- Best Possible Medication History Admit Date and Time: 10/27/22 0259 Processed by: Pharmacy Medication History completed: Yes Patient Interview: Completed Secondary Source(s): Spouse/Significant other, Insurance records, Previous admit records Patient and his were not certain about many of the doses of his medications. List mostly updated using insurance records and previous admit records. As the person ultimately responsible for medication therapy, providers are able to order a medication from an existing home medication list in [facility] via the "Reconcile Routine" prior to Confirmation of that medication by production support manager. Such practice is discouraged except when the physician, in their clinical judgment, deems that a medical need exists for a medication without regard to previous use.
[2022-10-27] MEDS: ACETAMINOPHEN 325 MG TABLET PO PRN (12:29)
[2022-10-27] MEDS: ZINC OXIDE 20% OINT 30 GM TUBE TOP PRN (12:30)
[2022-10-27] MEDS: SODIUM CHLORIDE FLUSH 0.9% 10 ML SYRINGE IVP PRN ×2 (13:12→21:32)
--- NOTE | 2022-10-27 13:39 | PROVIDER PROGRESS NOTE ---
Assessment/Plan - Problem List (1) Acute and chronic respiratory failure Assessment/Plan: Patient is usually on 2 to 3 L/min oxygen by nasal cannula at home. Cause of hypoxia is probably multifactorial: Was felt to be from CHF exacerbation, or COPD exacerbation and an aspiration pneumonia, by the admitting Telemedicine Provider. I hear no wheezing and he is not tachypneic, so today I doubt he is in a COPD exacerbation. He is lying flat in bed, so doubt CHF. Plan: Continue with supplemental oxygen. Treat the underlying problem He will need an oximetry walk test on the day of discharge to see if he needs new home oxygen 2. Acute CHF exacerbation Plan: Will continue with cardiac meds once med list reconciled, but doses need adjustment due to low BP. Will check a set of troponins. Will obtain an Echocardiogram. 3. Aspiration pneumonia Plan: Continue empiric antibiotics. Await culture results. 4. Hypersomnolence According to the patient he has up-and-down in alertness: hypersomnolence with confusion, then gets completely alert and oriented. The corroborated that this hypersomnolence has been happening for 1 month. Plan: Will monitor BP closely since he may be hypoperfusing causing his sleepiness and confusion. Continue monitoring his oxygen and supplementing if needed to keep sats over 90% since hypoxia could be making him hypersomnolent. 5. Hypotension This has been documented as low as 80/38 today, after having received several doses of IV Lasix. Plan: Stop Lasix. Will give 500 cc saline bolus and 1 L of saline slowly, since he is able to lie nearly supine and is in no respiratory distress Will stop any other meds adding to low BP. Will check a Lactic acid level, as this could be septic shock. Will obtain a set of troponins, as this could be caused by acute KS We are following H/H, given the complaint of melena 6. Acute on chronic renal failure Suspect that etiology is cardiorenal syndrome. Plan: Avoid nephrotoxins. Follow BMP daily Original plan was to continue with gentle diuresis, until an Echocardiogram was obtained and we establish his EF 7. Hyperkalemia Related to his worsening renal function today Plan: Will give insulin and D50 to treat very high potassium levels Avoid potassium-containing products. Follow BMP daily 8. Pancytopenia, of unknown cause This patient had a low white count at presentation, it is even lower today. He had low platelets at admission as well. These are all new since last labs done here in 02/2022. I suspect he has an underlying hematologic condition, possibly MDS. Plan: Follow CBC daily. Transfuse PRBCs if Hgb less than 7. Will review his EMR and/or reach out to his PCP for any records regarding a hematologic condition 9. GI bleed with melena He presented complaining of generalized abdominal pain for 2 weeks. He states dark stools for the past 1 week. Since he has somnolent now, he cannot give me details about his melena Plan: Follow CBC daily Gen Surgery consult for possible EGD Continue empiric Protonix IV bid but no drip is needed, as ordered by admitting provider, since he is not actively, visibly bleeding. Will start a diet today, keep him n.p.o. for tomorrow 10. Anemia Hemoglobin was 9 at admission, today is 9.5 (but he is probably hemoconcentrated after getting Lasix). Plan: Follow CBC daily or every 12 hours. Would transfuse PRBCs if hemoglobin less than 7 11. Coronary artery disease, status post CABG Plan: Continue his cardiac meds once the medication list is reconciled by pharmacy 12. Proctitis Admitting provider stated "Questionable proctitis" Plan: Will continue management as per admitting provider for now. 13. Benign prostatic hypertrophy Plan: Continue his meds once the medication list is reconciled by pharmacy - Current Meds Current Meds: Current Medications Generic Name Dose Route Start Last Admin Trade Name Freq PRN Reason Stop Dose Admin Acetaminophen 650 mg 10/27/22 02:59 10/27/22 12:29 Acetaminophen 325 Mg Tablet PO 650 mg Q4HR PRN Administration Pain 1 to 4, or Fever Furosemide 20 mg 10/27/22 06:00 10/27/22 13:12 Furosemide 20 Mg/2 Ml Vial IVP 20 mg BIDDIURETIC DORA Administration Metronidazole 500 mg in 100 mls @ 100 mls/hr 10/27/22 06:00 10/27/22 13:11 Flagyl 500 Mg/100 Ml IV 100 mls/hr Q8H DORA Administration Insulin Human Regular 1 - 5 unit 10/27/22 06:00 10/27/22 11:48 Insulin Regular Human 300 Unit/3 Ml Vial SUBQ Not Given Q6HR DORA Protocol Multi-Ingredient Ointment 1 applic 12/13/22 11:48 10/27/22 12:30 Zinc Oxide 20% Oint 30 Gm Tube TOP 1 applic PRN PRN Administration Skin Care Sodium Chloride 10 ml 10/27/22 02:59 10/27/22 13:12 Sodium Chloride Flush 0.9% 10 Ml Syringe IVP 10 ml PRN PRN Administration NEEDED PER PROVIDER ORDERS Sodium Chloride 10 ml 10/27/22 09:00 10/27/22 07:41 Sodium Chloride Flush 0.9% 10 Ml Syringe IVP 10 ml 0100,0900,1700 DORA Administration - Lab Result Fish Bone Diagrams: 10/26/22 22:52 10/26/22 22:52 - Additional Planning My Orders: My Active Orders 10/27/22 Consult [General Surgery Consult] [CONS] Routine 10/27/22 Lunch DIET [Dysphagia - Puree] [DIET] 10/27/22 11:48 Zinc Oxide 20% Oint [Zinc Oxide] 1 applic TOP PRN PRN 10/27/22 21:00 Pantoprazole [Protonix] 40 mg IVP BID Subjective - Subjective Patient Reports: Other (He was somnolent and minimally responsive this morning, in the early afternoon he was wide-awake, alert and oriented x3 and had a good memory. He then told staff that he goes "in and out". Social Work was able to find out from that he has had this lethargy for a month.) Objective Vital Signs: Vital Signs - 24 hr 10/26/22 10/26/22 10/26/22 15:23 17:20 17:27 Temperature 36.5 C Heart Rate 72 89 56 L Heart Rate [ Brachial] Respiratory 16 20 Rate Blood Pressure 109/54 L 102/52 L Blood Pressure [Left Brachial artery] O2 Saturation 96 96 If not protocol 4 : Oxygen Flow, liters/minute 10/26/22 10/26/22 10/27/22 18:06 20:12 04:01 Temperature 97.8 C H Heart Rate 47 L 105 H Heart Rate [ Brachial] Respiratory 20 Rate Blood Pressure 92/49 L 119/65 Blood Pressure [Left Brachial artery] O2 Saturation 99 99 If not protocol 4 : Oxygen Flow, liters/minute 10/27/22 10/27/22 10/27/22 04:15 08:07 11:50 Temperature 35.5 C L 36.4 C L 36.2 C L Heart Rate Heart Rate [ 54 L 58 L 76 Brachial] Respiratory 22 20 22 Rate Blood Pressure Blood Pressure 108/43 L 91/40 L 101/63 [Left Brachial artery] O2 Saturation 94 97 92 If not protocol 2 4 4 : Oxygen Flow, liters/minute Oxygen O2 Source Oxymizer Oxygen Flow Rate 4 I&O (Last 24 Hrs): Intake and Output Totals x24h 10/25/22 10/26/22 10/27/22 23:59 23:59 23:59 Intake Total 1600 737 Output Total 50 Balance 1600 687 General: Other (Somnolent, does not awaken to touch or to his name. Is asleep, in no distress) HEENT: Mucous membr. moist/pink, Other (Wearing O2 per Oxymizer. Has a long finnegan.) Neck: Other (Has a long finnegan covering his neck. He has no JVD at 10 degree upright angle) Neuro: Other (Somnolent) Cardiovascular: Regular rate, No murmurs Respiratory: No respiratory distress, Breath sounds nml Abdomen: Normal bowel sounds, Soft Extremities: No clubbing, Other (2+ edema to knees) - Results Results: Laboratory Results WBC 3.1 x10^3/uL (4.8-10.8) L 10/26/22 22:52 RBC 3.02 10^6/uL (4.70-6.10) L 10/26/22 22:52 Hgb 9.5 g/dL (14.0-18.0) L 10/26/22 22:52 Hct 33.6 % (42.0-52.0) L 10/26/22 22:52 MCV 111.3 fL (80.0-94.0) H 10/26/22 22:52 MCH 31.5 pg (27.0-31.0) H 10/26/22 22:52 MCHC 28.3 g/dL (32.0-36.0) L 10/26/22 22:52 RDW 18.0 % (12.0-15.0) H 10/26/22 22:52 Plt Count 54 10^3/uL (130-450) L 10/26/22 22:52 MPV 11.3 fL (7.4-11.4) 12/12/22 22:52 Neut # (Auto) FUSE CUP EXPANDER 10/26/22 15:52 Lymph # (Auto) FUSE CUP EXPANDER 10/26/22 15:52 [place] # (Auto) FUSE CUP EXPANDER 10/26/22 15:52 Eos # (Auto) FUSE CUP EXPANDER 10/26/22 15:52 Baso # (Auto) FUSE CUP EXPANDER 10/26/22 15:52 Absolute Nucleated RBC FUSE CUP EXPANDER 10/26/22 15:52 Total Counted 100 10/26/22 15:52 Band Neuts % (Manual) 0 % (0-10) 10/26/22 15:52 Reactive Lymphs % (Man) 3 % 10/26/22 15:52 Abnorm Lymph % (Manual) 0 % 10/26/22 15:52 Nucleated RBC % FUSE CUP EXPANDER 10/26/22 15:52 Neutrophils # (Manual) 2.6 10^3/uL (1.5-6.6) 10/26/22 15:52 Lymphocytes # (Manual) 0.2 10^3/uL (1.5-3.5) L 10/26/22 15:52 Monocytes # (Manual) 0.0 10^3/uL (0.0-1.0) 10/26/22 15:52 Eosinophils # (Manual) 0.1 10^3/uL (0-0.7) 10/26/22 15:52 Basophils # (Manual) 0.1 10^3/uL (0-0.1) 10/26/22 15:52 Differential Comment MANUAL DIFFERENTIAL 10/26/22 15:52 Platelet Estimate DECREASED (<130,000) (NORMAL) 10/26/22 15:52 Platelet Morphology NORMAL APPEARANCE (NORMAL) 10/26/22 15:52 RBC Morph Micro Appear 2+ ANISOCYTOSIS (NORMAL) 2+ MACROCYTOSIS (NORMAL) 1+ HYPOCHROMASIA (NORMAL) 1+ SCHISTOCYTES (NORMAL) 10/26/22 15:52 RBC Morph Micro Appear 2+ ANISOCYTOSIS (NORMAL) 2+ MACROCYTOSIS (NORMAL) 1+ HYPOCHROMASIA (NORMAL) 1+ SCHISTOCYTES (NORMAL) 10/26/22 15:52 RBC Morph Micro Appear 2+ ANISOCYTOSIS (NORMAL) 2+ MACROCYTOSIS (NORMAL) 1+ HYPOCHROMASIA (NORMAL) 1+ SCHISTOCYTES (NORMAL) 10/26/22 15:52 RBC Morph Micro Appear 2+ ANISOCYTOSIS (NORMAL) 2+ MACROCYTOSIS (NORMAL) 1+ HYPOCHROMASIA (NORMAL) 1+ SCHISTOCYTES (NORMAL) 10/26/22 15:52 PT 12.9 secs (9.9-12.6) H 10/26/22 15:52 INR 1.2 (0.8-1.2) 10/26/22 15:52 APTT 33.9 secs (24.9-33.3) H 10/26/22 15:52 Sodium 138 mmol/L (135-145) 10/26/22 22:52 Potassium 5.8 mmol/L (3.5-5.0) H 10/26/22 22:52 Chloride 98 mmol/L (101-111) L 10/26/22 22:52 Carbon Dioxide 33 mmol/L (21-32) H 10/26/22 22:52 Anion Gap 7.0 (6-13) 10/26/22 22:52 BUN 87 mg/dL (6-20) H* 10/26/22 22:52 Creatinine 2.6 mg/dL (0.6-1.2) H 10/26/22 22:52 Estimated GFR (MDRD) 24 (>89) L 10/26/22 22:52 Glucose 128 mg/dL (70-100) H 10/26/22 22:52 POC Whole Bld Glucose 80 mg/dL (70 - 100) 10/27/22 11:27 Calcium 7.7 mg/dL (8.5-10.3) L 10/26/22 22:52 Total Bilirubin 0.5 mg/dL (0.2-1.0) 10/26/22 15:52 AST 37 IU/L (10-42) 10/26/22 15:52 ALT 34 IU/L (10-60) 10/26/22 15:52 Alkaline Phosphatase 154 IU/L (42-121) H 10/26/22 15:52 B-Natriuretic Peptide 1419 pg/mL (5-100) H 10/26/22 15:52 Total Protein 5.8 g/dL (6.7-8.2) L 10/26/22 15:52 Albumin 2.8 g/dL (3.2-5.5) L 10/26/22 15:52 Globulin 3.0 g/dL (2.1-4.2) 10/26/22 15:52 Albumin/Globulin Ratio 0.9 (1.0-2.2) L 10/26/22 15:52 Lipase 31 U/L (22-51) 10/26/22 15:52 Nasal Adenovirus (PCR) NOT DETECTED 10/26/22 16:04 Nasal B. parapertussis DNA (PCR) NOT DETECTED 10/26/22 16:04 Nasal Coronavir 229E PCR NOT DETECTED 10/26/22 16:04 Nasal Coronavir HKU1 PCR NOT DETECTED 10/26/22 16:04 Nasal Coronavir NL63 PCR NOT DETECTED 10/26/22 16:04 Nasal Coronavir OC43 PCR NOT DETECTED 10/26/22 16:04 Nasal Enterovir/Rhinovir PCR NOT DETECTED 10/26/22 16:04 Nasal Influenza B PCR NOT DETECTED 10/26/22 16:04 Nasal Influenza A PCR NOT DETECTED 10/26/22 16:04 Nasal Parainfluen 1 PCR NOT DETECTED 10/26/22 16:04 Nasal Parainfluen 2 PCR NOT DETECTED 10/26/22 16:04 Nasal Parainfluen 3 PCR NOT DETECTED 10/26/22 16:04 Nasal Parainfluen 4 PCR NOT DETECTED 10/26/22 16:04 Nasal RSV (PCR) NOT DETECTED 10/26/22 16:04 Nasal B.pertussis DNA PCR NOT DETECTED 10/26/22 16:04 Nasal C.pneumoniae (PCR) NOT DETECTED 10/26/22 16:04 Kevin Human Metapneumo PCR NOT DETECTED 10/26/22 16:04 Nasal M.pneumoniae (PCR) NOT DETECTED 10/26/22 16:04 Nasal SARS-CoV-2 (PCR) NOT DETECTED 10/26/22 16:04 Blood Type A NEGATIVE 10/26/22 15:52 Blood Type Recheck A NEGATIVE 10/26/22 17:05 Antibody Screen NEGATIVE 10/26/22 15:52
[2022-10-27] MEDS ORDERED: SODIUM CHLORIDE 0.9% 1,000 ML IV SCH (14:00)
--- NOTE | 2022-10-27 15:00 | CONSULTATION NOTE ---
Surgery Consult - Admit Date Hospital Admission Date: 10/27/22 - Consult Date Consult Date: 10/27/22 Requesting Provider: Dr Silva - Chief Complaint Chief Complaint: Black stools - Home Meds/Allergies Home Medications: Patient History Medication Instructions Recorded Confirmed Aspirin [Adult Aspirin Regimen] 81 mg PO DAILY 06/06/20 10/27/22 Insulin Glargine [Lantus Solostar] 10 - 30 units SQ QPM 06/06/20 10/27/22 Losartan [Cozaar] 50 mg PO BID 06/06/20 10/27/22 Tamsulosin [Flomax] 0.4 mg PO DAILY 12/02/20 10/27/22 Insulin Aspart [NovoLOG] 2 - 12 unit SUBQ QDDINNER 03/02/22 10/27/22 Ipratropium [Atrovent] 0.5 mg INH QID PRN 03/02/22 10/27/22 Albuterol [Proventil Hfa] 1 puffs INH Q4H PRN 10/27/22 10/27/22 Atorvastatin Calcium 40 mg PO QPM 10/27/22 10/27/22 Carvedilol [Coreg] 25 mg PO BIDWM 10/27/22 10/27/22 Furosemide [Lasix] 40 mg PO DAILY 10/27/22 10/27/22 Umeclidinium Brm/Vilanterol Tr 1 puffs INH DAILY 10/27/22 10/27/22 [Anoro Ellipta 62.5-25 Mcg INH] Allergies/Adverse Reactions: Allergies Allergy/AdvReac Type Severity Reaction Status Date / Time pneumococcal vaccine Allergy Anaphylaxis Verified 10/26/22 15:22 oxycodone [From Percodan] AdvReac Hives Verified 10/26/22 15:22 - Vital Signs Vital Signs: Last Vital Signs Temp 97.2 F L 10/27/22 11:50 Pulse 76 10/27/22 11:50 Resp 22 10/27/22 11:50 BP 101/63 10/27/22 11:50 Pulse Ox 92 10/27/22 11:50 O2 Flow Rate 4 10/27/22 11:50 Intake & Output: Intake & Output 10/24/22 10/25/22 10/26/22 10/27/22 23:59 23:59 23:59 23:59 Intake Total 1600 837 Output Total 50 Balance 1600 787 - Lab Results Result Diagrams: 10/26/22 22:52 10/26/22 22:52 - Consultation Note Consultation Note: S: Sachin Kay is an 82 year old male admitted to the [facility] today with anemia and melenic stools. He admits to mild mid-epigastric pain and uses aspirin daily. He thinks he may have had a stomach ulcer in his youth. He denies nausea, vomiting, or BRBPR. O: VSS, not tachycardic; Sleepy but arouses easily and is cooperative. Lungs Clear Heart NSR Abdomen Soft, non-distended, mild mid-epigastric tenderness Ext Normal ROM Labs - stable since ED admission - see above CT/CXR reviewed - see radiology report Assessment: 1) Melena associated with anemia and mild epigastric discomfort. His VS are stable, his H&H is improving, and he has not required a blood transfusion therefore it is unlikely that he is actively bleeding. 2) Thrombocytopenia and morphologic RBC changes on peripheral smear - etiology unknown at this time 3) CHF 4) CAD 5) COPD 6) Dementia Plan: 1) NPO after midnight 2) EGD at noon tomorrow Consent: Sachin has been counseled for the procedure, it's indications, risks, benefits and expected outcome as well as alternative therapies. We specifically discussed risks associated with anesthesia, bleeding, infection, injury to surrounding structures which may require additional surgery. In my medical opinion, considering (1) the potential harm to the patient's health and well-being, including the risks associated with the patient undergoing a procedure and delaying the procedure during the COVID-19 pandemic, and (2) the health care resources available to the patient in the hospital and the broader community during and after the procedure, I recommend that the patient proceed with the procedure. Sachin understands, agrees, and consents to the proposed operative strategy and requests that we proceed with the procedure as outlined in our discussion. Boaz Whittington MD General Surgery Service
[2022-10-27] MEDS ORDERED: SODIUM CHLORIDE 0.9% 500 ML IV ONE ×2 (17:12→23:26)
[2022-10-27] MEDS: INSULIN LISPRO 300 UNIT/3 ML PEN SUBQ SCH ×2 (17:33→21:24)
[2022-10-27] MEDS: PANTOPRAZOLE 40 MG VIAL IVP SCH (21:32)
[2022-10-28] MEDS: SODIUM CHLORIDE FLUSH 0.9% 10 ML SYRINGE IVP SCH ×4 (00:46→20:41)
[2022-10-28] MEDS: metroNIDAZOLE 500 MG/100 ML 500 MG/100 ML BAG IV SCH (05:46)
--- NOTE | 2022-10-28 07:39 | PROVIDER PROGRESS NOTE ---
Progress Note General Surgery Pre-procedure Note The patient has remained comfortable all evening. He is awake, alert, and oriented this morning. Unfortunately his evening troponins are elevated and his echocardiogram identifies severe left ventricular dysfunction. I have discussed these cardiac issues with the Medical Hospitalist Service and Anesthesia and we have decided to cancel the EGD scheduled for this morning. I will order an H&H this morning to compare it to his H&H obtained 10/26/22 to make sure his anemia has not worsened. Boaz Whittington MD General Surgery Service
[2022-10-28] MEDS: INSULIN LISPRO 300 UNIT/3 ML PEN SUBQ SCH ×4 (07:41→20:42)
[2022-10-28 07:52] LABS: HCT - HEMATOCRIT 31.5 % (42.0-52.0); HGB - HEMOGLOBIN 8.9 g/dL (14.0-18.0); MEAN CORPUSCULAR HEMOGLOBIN 31.6 pg (27.0-31.0); MEAN CORPUSCULAR HGB CONC 28.3 g/dL (32.0-36.0); MEAN CORPUSCULAR VOLUME 111.7 fL (80.0-94.0); MEAN PLATELET VOLUME 12.1 fL (7.4-11.4); RED BLOOD COUNT 2.82 10^6/uL (4.70-6.10); RED CELL DISTRIBUTION WIDTH 17.8 % (12.0-15.0)
[2022-10-28 08:12] LABS: CALCIUM 7.6 mg/dL (8.5-10.3); CREATININE 3.6 mg/dL (0.6-1.2)
[2022-10-28 08:15] LABS: POTASSIUM 6.2 mmol/L (3.5-5.0)
--- NOTE | 2022-10-28 08:16 | XRAY Report ---
PROCEDURE: Chest 1 View X-Ray INDICATIONS: Hypoxia, F/U CHF and aspira PNA TECHNIQUE: One view of the chest was acquired. COMPARISON: 10/26/2022 and 02/28/2022 FINDINGS: Surgical changes and devices: Median sternotomy wires are seen.. Lungs and pleura: The There is pulmonary vascular congestion and small to moderate bilateral pleural effusion more prominent on the right side. Bibasilar infiltrates/atelectasis are likely present. Mil d pulmonary edema is also noted. No gross pneumothorax. Mediastinum: Mediastinal contours appear normal. Heart size is enlarged. Bones and chest wall: No suspicious bony lesions. Overlying soft tissues appear unremarkable. IMPRESSION: Persistent CHF changes and right greater than left bilateral pleural effusion. Cannot rule out underl torsten lower lobe infiltrates. No pneumothorax. Reviewed by: Gabo Burger MD on 10/28/2022 8:15 AM PST Approved by: Gabo Burger MD on 10/28/2022 8:15 AM PST Station ID: [id number]
[2022-10-28] MEDS: PANTOPRAZOLE 40 MG VIAL IVP SCH ×2 (08:32→20:41)
[2022-10-28] MEDS ORDERED: INSULIN REGULAR HUMAN 300 UNIT/3 ML VIAL IVP ONE ×2 (09:01→13:04)
[2022-10-28] MEDS ORDERED: DEXTROSE 50% ABBOJECT 25 GM/50 ML SYRINGE IVP ONE ×2 (09:01→13:04)
--- NOTE | 2022-10-28 09:07 | PROVIDER PROGRESS NOTE ---
Subjective - Subjective Pt reports feeling: Worse (Pt is in severe distress, tachypneic, hypoxic and hypotensive) Objective - Vital Signs/Intake & Output Vital Signs: Vital Signs Temp Pulse Resp BP BP Pulse Ox O2 Flow Rate 10/28/22 08:35 70 22 92 4 10/28/22 08:15 2.5 10/28/22 07:43 58 L 66/54 L 87 L 3 10/28/22 07:40 76 94/14 L 10/28/22 07:37 77 72/20 L 10/28/22 07:35 36.7 C 79 20 76/19 L 90 L 3 10/28/22 06:03 36.6 C 55 L 17 112/69 86 L 4 Intake & Output: Intake & Output 10/25/22 10/26/22 10/27/22 10/28/22 23:59 23:59 23:59 23:59 Intake Total 1600 1993 920 Output Total 50 0 Balance 1600 194 920 - Objective General Appearance: positive: Severe distress, Lethargic, Other (Obese male, confused) Eyes Bilateral: positive: EOMI ENT: positive: No signs of dehydration Neck: positive: Other (Cannot evaluate JVP due to obesity and large finnegan) Respiratory: positive: Wheezes, Other (Poor air movement in all lung field) Cardiovascular: positive: No murmur (No audible murmur due to obesity and over loud wheezing), Tachycardia Abdomen: positive: Non-tender, Other (Obese with pannus) Skin: positive: Warm, Dry, Pallor Extremities: positive: Non-tender, Other (1+ edema) Neurologic/Psychiatric: positive: Other (Poor memory, non-focal, lethargic) - Lab Results Fish Bones: 10/29/22 04:25 10/29/22 04:25 Other Labs: Lab Results x24hrs 10/28/22 10/28/22 10/28/22 Range/Units 08:59 07:45 07:45 WBC 3.0 L (4.8-10.8) x10^3/uL RBC 2.82 L (4.70-6.10) 10^6/uL Hgb 8.9 L (14.0-18.0) g/dL Hct 31.5 L (42.0-52.0) % MCV 111.7 H (80.0-94.0) fL MCH 31.6 H (27.0-31.0) pg MCHC 28.3 L (32.0-36.0) g/dL RDW 17.8 H (12.0-15.0) % Plt Count 49 L (130-450) 10^3/uL MPV 12.1 H (7.4-11.4) fL Sodium 138 (135-145) mmol/L Potassium 6.2 H* (3.5-5.0) mmol/L Chloride 103 (101-111) mmol/L Carbon Dioxide 29 (21-32) mmol/L Anion Gap 6.0 (6-13) BUN 108 H* (6-20) mg/dL Creatinine 3.6 H (0.6-1.2) mg/dL Estimated GFR (MDRD) 16 L (>89) Glucose 70 (70-100) mg/dL POC Whole Bld Glucose 117 H (70 - 100) mg/dL Lactic Acid (0.5-2.2) mmol/L Calcium 7.6 L (8.5-10.3) mg/dL Troponin I High Sens (2.3-19.7) ng/L 10/28/22 10/27/22 10/27/22 Range/Units 07:33 22:00 20:29 WBC (4.8-10.8) x10^3/uL RBC (4.70-6.10) 10^6/uL Hgb (14.0-18.0) g/dL Hct (42.0-52.0) % MCV (80.0-94.0) fL MCH (27.0-31.0) pg MCHC (32.0-36.0) g/dL RDW (12.0-15.0) % Plt Count (130-450) 10^3/uL MPV (7.4-11.4) fL Sodium (135-145) mmol/L Potassium (3.5-5.0) mmol/L Chloride (101-111) mmol/L Carbon Dioxide (21-32) mmol/L Anion Gap (6-13) BUN (6-20) mg/dL Creatinine (0.6-1.2) mg/dL Estimated GFR (MDRD) (>89) Glucose (70-100) mg/dL POC Whole Bld Glucose 57 L* 88 (70 - 100) mg/dL Lactic Acid (0.5-2.2) mmol/L Calcium (8.5-10.3) mg/dL Troponin I High Sens 173.9 H* (2.3-19.7) ng/L 10/27/22 10/27/22 10/27/22 Range/Units 18:56 18:56 16:59 WBC (4.8-10.8) x10^3/uL RBC (4.70-6.10) 10^6/uL Hgb (14.0-18.0) g/dL Hct (42.0-52.0) % MCV (80.0-94.0) fL MCH (27.0-31.0) pg MCHC (32.0-36.0) g/dL RDW (12.0-15.0) % Plt Count (130-450) 10^3/uL MPV (7.4-11.4) fL Sodium (135-145) mmol/L Potassium (3.5-5.0) mmol/L Chloride (101-111) mmol/L Carbon Dioxide (21-32) mmol/L Anion Gap (6-13) BUN (6-20) mg/dL Creatinine (0.6-1.2) mg/dL Estimated GFR (MDRD) (>89) Glucose (70-100) mg/dL POC Whole Bld Glucose 97 (70 - 100) mg/dL Lactic Acid 0.6 (0.5-2.2) mmol/L Calcium (8.5-10.3) mg/dL Troponin I High Sens 153.1 H* (2.3-19.7) ng/L 10/27/22 10/27/22 Range/Units 11:27 06:00 WBC (4.8-10.8) x10^3/uL RBC (4.70-6.10) 10^6/uL Hgb (14.0-18.0) g/dL Hct (42.0-52.0) % MCV (80.0-94.0) fL MCH (27.0-31.0) pg MCHC (32.0-36.0) g/dL RDW (12.0-15.0) % Plt Count (130-450) 10^3/uL MPV (7.4-11.4) fL Sodium (135-145) mmol/L Potassium (3.5-5.0) mmol/L Chloride (101-111) mmol/L Carbon Dioxide (21-32) mmol/L Anion Gap (6-13) BUN (6-20) mg/dL Creatinine (0.6-1.2) mg/dL Estimated GFR (MDRD) (>89) Glucose (70-100) mg/dL POC Whole Bld Glucose 80 106 H (70 - 100) mg/dL Lactic Acid (0.5-2.2) mmol/L Calcium (8.5-10.3) mg/dL Troponin I High Sens (2.3-19.7) ng/L Assessment/Plan - Problem List (1) Shock Impression: BP this morning is 60 systolic. He is pale and not mentating well. Hgb is stable, therefore not hemorrhagic shock. His EGD was cancelled for today therefore. I suspect he has cardiogenic shock, given the systolic heart failure. Will also need to R/O septic shock. Plan: Transfer to ICU Telemetry Central line Check a set of troponins. Check Lactic Acid level and procalcitonin. Start pressors for BP support. Will order Dobutamine. Target systolic BP 99mmHg. Follow H/H q12h, in case needs transfusion. I discussed his worsened status with and son Vadim, outside of his room. His status is now critical. 2. Acute on chronic respiratory failure with hypoxia Patient is usually on 2 to 3 L/min oxygen by nasal cannula at home. Cause of hypoxia is probably multifactorial: Was felt to be from CHF exacerbation, and a COPD exacerbation and an aspiration pneumonia, by the admitting Telemedicine Provider. He is wheezing and tachypneic, complaining of orthopnea as well. Plan: Transfer to the ICU Continue with supplemental oxygen and possible BIPAP need. Treat the underlying problems I discussed his worsened status with and son Vadim, outside of his room (see separate ACP note). He has already been a DNR. They understand he is now critical and decision was made not to intubate to use a vent. 3. Acute CHF exacerbation Echo was done yesterday 10/27. This showed LV enlargement with global hypoki nesis, LVEF 35% Plan: Hold cardiac meds and resume and/or adjust doses, when BP improved on IV press ors. Will check a set of troponins to check if acute GA causing the presumed cardiogenic shock 4. Aspiration pneumonia Plan: Continue empiric antibiotics but will change Flagyl to Zosyn, due to worsening renal function. Await culture results. 5. Hypersomnolence According to what the family told me today, he has up-and-down in alertness: hypersomnolence with confusion, then gets completely alert and oriented. The corroborated that this hypersomnolence has been happening for 1 month; "he mostly sleeps all day". He also takes a bite then has no appetite, Plan: Start Pressors for treating hypotension Will monitor BP closely in ICU, since he may be hypoperfusing causing his sleepiness and confusion. Continue monitoring his oxygen and supplementing if needed to keep sats over 88- 90%, since hypoxia could be making him hypersomnolent. His worsening uremia may also be causing somnolence and poor appetite. This was discussed with and son today. 6. 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 Since being admitted his creat has worsened daily. We tried diuresing him which caused hypotension. He may have cardiorenal syndrome and/or ATN from hypotension causing renal hypoperfusion Plan: Avoid nephrotoxins. Follow BMP daily Return to original plan of diuresis, will restart diuretics when BP improved on pressors. 7. Hyperkalemia Related to his worsening renal function today Plan: Will give insulin and D50 to treat very high potassium levels Avoid potassium-containing products. Recheck Whole blood potassium level in several hours Follow BMP daily 8. Pancytopenia, of unknown cause This patient had a low white count at presentation, it is even lower today. He had low platelets at admission as well. These are all new since last labs done here in 02/2022. I suspect he has an underlying hematologic condition, possibly MDS. Plan: Follow CBC daily. Transfuse PRBCs if Hgb less than 7. Will review his EMR and/or reach out to his PCP for any records regarding a hematologic condition 9. Melena He presented complaining of generalized abdominal pain for 2 weeks. He stated he had dark stools for the past 1 week. Since he has been somnolent here, he cannot give me details about his melena, says he cannot remember. Plan: Following CBC daily Gen Surgery was consult for possible EGD. It was to be done today, but was cancelled given the hypotension and resp distress. Continue empiric Protonix IV bid Will restart a diet today, 10. Anemia Hemoglobin was 9 at admission, and has been stable, not dropping Plan: Follow CBC daily or every 12 hours. Would transfuse PRBCs if hemoglobin less than 7 11. DM Will order a diabetic diet, hypoglycemia protocol, fingerstick checks before meals and at bedtime and sliding scale insulin coverage. 12. Coronary artery disease, status post CABG Plan: Continue his cardiac meds once his BP has risen on pressors 13. Proctitis Admitting provider stated "Questionable proctitis" Plan: Will continue management with empiric antibiotics 14. Benign prostatic hypertrophy Plan: Continue his meds once the BP has risen on pressors.
--- NOTE | 2022-10-28 11:07 | CONSULTATION NOTE ---
Consultation Report: consulted by Hospitalist team for CVL placement. Informed consent obtained. R IJ CVL placed with US guidance, sterile technique maintained. Pt tolerated well. NAC noted. Port CXR ordered for line placement. See RN notes for VS.
--- NOTE | 2022-10-28 11:28 | XRAY Report ---
PROCEDURE: Chest for Line Placement INDICATIONS: line placement TECHNIQUE: One view of the chest was acquired. COMPARISON: 10/28/2022 at 0729 hours. FINDINGS: Surgical changes and devices: Interval placement of a right IJ line, the tip which projects in the d istal superior vena cava. Remote midline sternotomy. Lungs and pleura: Pulmonary edema, right greater than left pleural effusions, bibasilar atelectasis. Mediastinum: Mediastinal contours appear normal. Cardiomegaly. Bones and chest wall: No suspicious bony lesions. Overlying soft tissues appear unremarkable. IMPRESSION: 1. Right IJ line in satisfactory position. 2. Congestive heart failure exacerbation. Reviewed by: Merrick Neal MD on 10/28/2022 11:26 AM PST Approved by: Merrick Neal MD on 10/28/2022 11:26 AM PST Station ID: [id number]
[2022-10-28] MEDS: DOBUTamine 500 MG/250 ML 500 MG/250 ML BAG IV SCH (11:53)
[2022-10-28] MEDS: AMPICILLIN/SULBACTAM 3 GM in SODIUM CHLORIDE 0.9% MINIBAG 100 ML IV SCH (12:13)
[2022-10-28 12:41] LABS: CALCIUM 7.5 mg/dL (8.5-10.3); CREATININE 3.8 mg/dL (0.6-1.2)
[2022-10-28] MEDS: FUROSEMIDE 40 MG/4 ML VIAL IVP SCH (13:32)
--- NOTE | 2022-10-28 16:30 | ADVANCE CARE PLANNING NOTE ---
Advance Care Planning - Planning Encounter Date: 10/28/22 Time: 12:00 Purpose: To complete of a POLST form and have it scanned into his EMR. He is already a DNR as per orders. To determine the family's wishes regarding ventilator use. Parties in Attendance: This hospitalist spoke to his and to his son Vadim, outside the patient's room Decisional Capacity of the Patient: Patient is confused, and hypersomnolent and has no decision-making capacity currently. - Diagnosis for Encounter (1) Shock Summary: Patient was admitted with respiratory distress felt to be from COPD exacerbation, CHF exacerbation and aspiration pneumonia. Management with meds was started and he has had dropping blood pressure and today is felt to be in cardiogenic shock with a systolic of 60 mmHg. An Echo was done yesterday that showed LVEF 35% and significant cor pulmonale. He is being admitted to the ICU. A central line insertion by anesthesia has been requested. Dobutamine will be started. He is on empiric IV antibiotics. He is on treatment for COPD exacerbation. 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 He is admitted now with worsening shortness of breath. The tells me that the patient has been doing poorly over the last 1 month: Mostly sleeps all day, only moves around to eat and when he does it is only 1 bite and then he has no appetite. He is intermittently more confused, at other times lucid. He is told the family "I have had enough of this", by which he meant that he is frustrated over how poorly he feels, she said. DNR was ordered at admission. Today the corroborates that he would not want CPR or to be on life prolonging measures. Objective/Medical Story: Patient with obesity, COPD, chronic systolic heart failure, CKD, sleep apnea on CPAP, presented with hypoxia and confusion. He has been started on IV antibiotics empirically for aspiration pneumonia and possibly proctitis. He is on nebulizers and steroids for COPD exacerbation. He is in heart failure, but acute [place] was ruled out. An Echo was done showing CHF and Cor pulmonale. He received Lasix which started to cause a drop in his blood pressure. Lasix has been on hold. With this, the patient became more hypoxic and in more severe respiratory distress. Despite Lasix on hold, his renal function has worsened. He started to get IV fluids back, in the form of saline 500 cc bolus yesterday plus 60 cc an hour x1 L. Despite those maneuvers, his systolic blood pressure is 60 and he is being moved to the ICU today. I explained that the patient is in critical condition and has multiorgan failure. The was able to confirm that the patient does not want any life-saving measures to prolong his life because he now has "a poor quality of life". She said that she, the pt, and their son, have recently been ready for his worsening condition, and ready for him to . I explained how being on the ventilator could progress to being vent-dependent or possibly improving and being able to be extubated. The son asked additional questions and they were all answered to his satisfaction. Goals of Care: Continuing medical management while keeping him comfortable is the main focus, per the and the son. No procedures to artificially prolong his life are desired. Plan: A POLST form will be completed today. Continue with DNR status. The wishes him to be a DNI. Code Status: Do Not Attempt Resuscitation Time spent on advance care plannin min
[2022-10-29] MEDS: AMPICILLIN/SULBACTAM 3 GM in SODIUM CHLORIDE 0.9% MINIBAG 100 ML IV SCH ×3 (00:13→23:56)
[2022-10-29] MEDS: DOBUTamine 500 MG/250 ML 500 MG/250 ML BAG IV SCH ×2 (00:44→10:30)
[2022-10-29] MEDS: SODIUM CHLORIDE FLUSH 0.9% 10 ML SYRINGE IVP PRN ×2 (04:31)
[2022-10-29 05:01] LABS: BASOPHILS % (AUTO) 0.3 %; EOSINOPHILS % (AUTO) 0.3 %; HCT - HEMATOCRIT 28.9 % (42.0-52.0); HGB - HEMOGLOBIN 8.3 g/dL (14.0-18.0); LYMPHOCYTES # (AUTO) 0.1 10^3/uL (1.5-3.5); LYMPHOCYTES % (AUTO) 3.8 %; MEAN CORPUSCULAR HEMOGLOBIN 31.6 pg (27.0-31.0); MEAN CORPUSCULAR HGB CONC 28.7 g/dL (32.0-36.0); MEAN CORPUSCULAR VOLUME 109.9 fL (80.0-94.0); MEAN PLATELET VOLUME 10.8 fL (7.4-11.4); MONOCYTES # (AUTO) 0.3 10^3/uL (0.0-1.0); MONOCYTES % (AUTO) 7.2 %; NEUTROPHILS # (AUTO) 3.3 10^3/uL (1.5-6.6); NEUTROPHILS % (AUTO) 87.6 %; PLT - PLATELET COUNT 53 10^3/uL (130-450); RED BLOOD COUNT 2.63 10^6/uL (4.70-6.10); RED CELL DISTRIBUTION WIDTH 18.2 % (12.0-15.0); WHITE BLOOD COUNT 3.7 x10^3/uL (4.8-10.8)
[2022-10-29 05:31] LABS: CALCIUM, IONIZED 0.97 mmol/L (1.15-1.33); VBG PH 7.279 (7.31-7.41)
[2022-10-29] MEDS ORDERED: CALCIUM GLUCONATE IN NS 0.9% 2,000 MG/100 ML BAG IV ONE (05:41)
[2022-10-29 05:48] LABS: CALCIUM 7.2 mg/dL (8.5-10.3); CREATININE 4.1 mg/dL (0.6-1.2); MAGNESIUM 2.4 mg/dL (1.7-2.8); PHOSPHORUS 6.8 mg/dL (2.5-4.6)
[2022-10-29] MEDS: FUROSEMIDE 40 MG/4 ML VIAL IVP SCH ×2 (05:57→14:29)
[2022-10-29] MEDS: INSULIN LISPRO 300 UNIT/3 ML PEN SUBQ SCH ×4 (07:20→21:07)
[2022-10-29] MEDS: PANTOPRAZOLE 40 MG VIAL IVP SCH ×2 (08:22→21:29)
[2022-10-29] MEDS: SODIUM CHLORIDE FLUSH 0.9% 10 ML SYRINGE IVP SCH ×3 (08:22→23:57)
[2022-10-29] MEDS: ACETAMINOPHEN 325 MG TABLET PO PRN (08:26)
[2022-10-29] MEDS ORDERED: INSULIN REGULAR HUMAN 300 UNIT/3 ML VIAL IVP ONE (09:18)
[2022-10-29] MEDS ORDERED: DEXTROSE 50% ABBOJECT 25 GM/50 ML SYRINGE IVP ONE (09:18)
[2022-10-29] MEDS ORDERED: CALCIUM CHLORIDE 2,000 MG in SODIUM CHLORIDE 0.9% 100ML 100 ML IV ONE (09:27)
[2022-10-29] MEDS ORDERED: SODIUM CHLORIDE 0.9% 500 ML IV PRN (10:31)
[2022-10-29] MEDS: ONDANSETRON 4 MG/2 ML VIAL IVP PRN (10:47)
[2022-10-29] MEDS ORDERED: MORPHINE 2 MG/ML CARPUJECT IVP PRN (10:54)
[2022-10-29] MEDS ORDERED: LIDOCAINE 2% URO-JET 5 ML SYRINGE UR ONE (11:32)
[2022-10-29] MEDS: LORazepam 2 MG/ML VIAL IVP PRN (12:00)
[2022-10-29 12:23] LABS: ESTIMATED AVERAGE GLUCOSE 128 mg/dL (70-100); HEMOGLOBIN A1c% 6.1 % (4.27-6.07)
--- NOTE | 2022-10-29 13:38 | PROVIDER PROGRESS NOTE ---
Subjective - Subjective Pt reports feeling: Worse (Tachypneic, guppy breathing, wants HOB elevated) Objective - Vital Signs/Intake & Output Vital Signs: Vital Signs Pulse Resp BP Pulse Ox O2 Flow Rate 10/29/22 13:00 62 18 108/55 L 92 5 10/29/22 12:00 63 18 100/46 L 99 5 10/29/22 11:00 63 23 102/81 H 100 5 10/29/22 10:00 67 24 112/68 92 5 Intake & Output: Intake & Output 10/26/22 10/27/22 10/28/22 10/29/22 23:59 23:59 23:59 23:59 Intake Total 1600 19935.984 644.834 Output Total 50 98 556 Balance 1600 1943 2006. 88.834 - Objective General Appearance: positive: Lethargic (After getting iv Ativan) Eyes Bilateral: positive: Normal inspection ENT: positive: No signs of dehydration Neck: positive: Other (Cannot evaluate JVP due to morbid obesity and longer) Respiratory: positive: Wheezes, Rhonchi Cardiovascular: positive: Tachycardia Abdomen: positive: Other (Obese with pannus) Skin: positive: Warm, Dry Extremities: positive: Other (2+ edema) - Lab Results Fish Bones: 10/29/22 04:25 10/29/22 13:55 Other Labs: Lab Results x24hrs 10/29/22 10/29/22 10/29/22 Range/Units 11:14 06:58 04:25 WBC (4.8-10.8) x10^3/uL RBC (4.70-6.10) 10^6/uL Hgb (14.0-18.0) g/dL Hct (42.0-52.0) % MCV (80.0-94.0) fL MCH (27.0-31.0) pg MCHC (32.0-36.0) g/dL RDW (12.0-15.0) % Plt Count (130-450) 10^3/uL MPV (7.4-11.4) fL Neut # (Auto) (1.5-6.6) 10^3/uL Lymph # (Auto) (1.5-3.5) 10^3/uL [place] # (Auto) (0.0-1.0) 10^3/uL Eos # (Auto) (0.0-0.7) 10^3/uL Baso # (Auto) (0.0-0.1) 10^3/uL Absolute Nucleated RBC x10^3/uL Nucleated RBC % /100WBC VBG pH 7.279 L (7.31-7.41) Ionized Calcium 0.97 L (1.15-1.33) mmol/L Sodium (135-145) mmol/L Potassium (3.5-5.0) mmol/L Chloride (101-111) mmol/L Carbon Dioxide (21-32) mmol/L Anion Gap (6-13) BUN (6-20) mg/dL Creatinine (0.6-1.2) mg/dL Estimated GFR (MDRD) (>89) Glucose (70-100) mg/dL POC Whole Bld Glucose 73 77 (70 - 100) mg/dL Estimat Average Glucose (70-100) mg/dL Hemoglobin A1c % (4.27-6.07) % Calcium (8.5-10.3) mg/dL Phosphorus (2.5-4.6) mg/dL Magnesium (1.7-2.8) mg/dL 10/29/22 10/29/22 10/29/22 Range/Units 04:25 04:25 04:25 WBC 3.7 L (4.8-10.8) x10^3/uL RBC 2.63 L (4.70-6.10) 10^6/uL Hgb 8.3 L (14.0-18.0) g/dL Hct 28.9 L (42.0-52.0) % MCV 109.9 H (80.0-94.0) fL MCH 31.6 H (27.0-31.0) pg MCHC 28.7 L (32.0-36.0) g/dL RDW 18.2 H (12.0-15.0) % Plt Count 53 L (130-450) 10^3/uL MPV 10.8 (7.4-11.4) fL Neut # (Auto) 3.3 (1.5-6.6) 10^3/uL Lymph # (Auto) 0.1 L (1.5-3.5) 10^3/uL [place] # (Auto) 0.3 (0.0-1.0) 10^3/uL Eos # (Auto) 0.0 (0.0-0.7) 10^3/uL Baso # (Auto) 0.0 (0.0-0.1) 10^3/uL Absolute Nucleated RBC 0.00 x10^3/uL Nucleated RBC % 0.0 /100WBC VBG pH (7.31-7.41) Ionized Calcium (1.15-1.33) mmol/L Sodium 138 (135-145) mmol/L Potassium 6.0 H* (3.5-5.0) mmol/L Chloride 100 L (101-111) mmol/L Carbon Dioxide 29 (21-32) mmol/L Anion Gap 9.0 (6-13) BUN 117 H* (6-20) mg/dL Creatinine 4.1 H (0.6-1.2) mg/dL Estimated GFR (MDRD) 14 L (>89) Glucose 83 (70-100) mg/dL POC Whole Bld Glucose (70 - 100) mg/dL Estimat Average Glucose 128 H (70-100) mg/dL Hemoglobin A1c % 6.1 H (4.27-6.07) % Calcium 7.2 L (8.5-10.3) mg/dL Phosphorus 6.8 H (2.5-4.6) mg/dL Magnesium 2.4 (1.7-2.8) mg/dL 10/28/22 10/28/22 10/28/22 Range/Units 20:41 17:08 16:49 WBC (4.8-10.8) x10^3/uL RBC (4.70-6.10) 10^6/uL Hgb (14.0-18.0) g/dL Hct (42.0-52.0) % MCV (80.0-94.0) fL MCH (27.0-31.0) pg MCHC (32.0-36.0) g/dL RDW (12.0-15.0) % Plt Count (130-450) 10^3/uL MPV (7.4-11.4) fL Neut # (Auto) (1.5-6.6) 10^3/uL Lymph # (Auto) (1.5-3.5) 10^3/uL [place] # (Auto) (0.0-1.0) 10^3/uL Eos # (Auto) (0.0-0.7) 10^3/uL Baso # (Auto) (0.0-0.1) 10^3/uL Absolute Nucleated RBC x10^3/uL Nucleated RBC % /100WBC VBG pH (7.31-7.41) Ionized Calcium (1.15-1.33) mmol/L Sodium (135-145) mmol/L Potassium (3.5-5.0) mmol/L Chloride (101-111) mmol/L Carbon Dioxide (21-32) mmol/L Anion Gap (6-13) BUN (6-20) mg/dL Creatinine (0.6-1.2) mg/dL Estimated GFR (MDRD) (>89) Glucose (70-100) mg/dL POC Whole Bld Glucose 107 H 90 66 L (70 - 100) mg/dL Estimat Average Glucose (70-100) mg/dL Hemoglobin A1c % (4.27-6.07) % Calcium (8.5-10.3) mg/dL Phosphorus (2.5-4.6) mg/dL Magnesium (1.7-2.8) mg/dL 10/28/22 10/28/22 Range/Units 16:29 13:32 WBC (4.8-10.8) x10^3/uL RBC (4.70-6.10) 10^6/uL Hgb (14.0-18.0) g/dL Hct (42.0-52.0) % MCV (80.0-94.0) fL MCH (27.0-31.0) pg MCHC (32.0-36.0) g/dL RDW (12.0-15.0) % Plt Count (130-450) 10^3/uL MPV (7.4-11.4) fL Neut # (Auto) (1.5-6.6) 10^3/uL Lymph # (Auto) (1.5-3.5) 10^3/uL [place] # (Auto) (0.0-1.0) 10^3/uL Eos # (Auto) (0.0-0.7) 10^3/uL Baso # (Auto) (0.0-0.1) 10^3/uL Absolute Nucleated RBC x10^3/uL Nucleated RBC % /100WBC VBG pH (7.31-7.41) Ionized Calcium (1.15-1.33) mmol/L Sodium (135-145) mmol/L Potassium (3.5-5.0) mmol/L Chloride (101-111) mmol/L Carbon Dioxide (21-32) mmol/L Anion Gap (6-13) BUN (6-20) mg/dL Creatinine (0.6-1.2) mg/dL Estimated GFR (MDRD) (>89) Glucose (70-100) mg/dL POC Whole Bld Glucose 54 L* 80 (70 - 100) mg/dL Estimat Average Glucose (70-100) mg/dL Hemoglobin A1c % (4.27-6.07) % Calcium (8.5-10.3) mg/dL Phosphorus (2.5-4.6) mg/dL Magnesium (1.7-2.8) mg/dL Assessment/Plan - Problem List (1) Shock Impression: BP has improved on Dobutamine at 8 mcg to 110 systolic after being transferred into ICU yesterday with BP 60 systolic. He was pale and not mentating well. Hgb remains stable, therefore not hemorrhagic shock. His EGD was cancelled for yesterday therefore. Lactic Acid and Procalcitonin were not elevated, to suggest septic shock. I suspect he had cardiogenic shock, given the systolic heart failure, LVEF 35% seen on Echo. Central line was placed. Troponins were recycled and did not show an acute ND. Plan: Remain in ICU Telemetry Continue Dobutamine for BP support. Target systolic BP 99mmHg. Follow H/H q12h, in case he needs transfusion. I discussed his critical status with at his bedside today. She again said she is prepared that he may . Will order a Hospice Consult 2. Acute on chronic respiratory failure with hypoxia Patient is usually on 2 to 3 L/min oxygen by nasal cannula at home. Cause of hypoxia is probably multifactorial: from CHF exacerbation, and a COPD exacerbation and an aspiration pneumonia. He has less wheezing today but is tachypneic, complaining of orthopnea as well. Plan: Continue with supplemental oxygen and possible BIPAP need. His home CPAP was brought in also. Unfortunately, we cannot use prn iv Morphine for dyspnea, per Pharmacist Mimi, since he has a hive allergy to oxycodone. Will give iv Ativan prn anxiety/air hunger. I have asked Pharmacy what we can use to substitute for Morphine. Follow ABG as needed Treat each underlying respiratory problem understands he is critical and decision was made not to intubate, not to use a vent. 3. Acute CHF exacerbation Echo was done 10/27. This showed LV enlargement with global hypokinesis, LVEF 35% Plan: Will resume cardiac meds and we did resume Lasix yesterday, when BP improved on IV pressors. 4. Cor Pulmonale This was also seen on his Echo done 10/27. It is likely from longstanding sleep apnea and COPD. This means he is very sensitive to preload and afterload and excessive diuresis will cause hypotension. Plan: As above in #3 5. Aspiration pneumonia Plan: Continue empiric antibiotics but we changed Flagyl to Zosyn, due to worsening renal function. Await culture results. 6. Hypersomnolence According to what the family told me, he has up-and-down in alertness: hypersomnolence with confusion, then gets completely alert and oriented. The corroborated that this hypersomnolence has been happening for 1 month; she said "he mostly sleeps all day". He also takes a bite of food then has no appetite, Plan: Cintinue pressors via central line, for treating hypotension, since that was likely causing hypoperfusing causing his sleepiness and confusion. Continue monitoring his oxygen and supplementing if needed to keep sats over 88- 90%, since hypoxia could be making him hypersomnolent and confused. His worsening uremia may also be causing somnolence and poor appetite. This was explained and discussed with and son yesterday 7. 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 Since being admitted his creat has worsened daily. We tried diuresing him which caused hypotension. He is oliguric yesterday and today despite resuming diuretics He may have cardiorenal syndrome and/or ATN from hypotension causing renal hypoperfusion. Plan: Avoid nephrotoxins. Follow BMP daily We are trying diuresis, by restarting diuretics now that BP improved on pressors. 8. Hyperkalemia Related to his daily worsening renal function Plan: Will give insulin and D50 to treat very high potassium levels Avoid potassium-containing products. Recheck Whole blood potassium level in several hours Follow BMP daily 9. Pancytopenia, of unknown cause This patient had a low white count of 3 at presentation, and remains in that range daily. He had low platelets at 50 since admission as well. These are all new since last labs done here in 02/2022. I suspect he has an underlying hematologic condition, possibly MDS. Plan: Follow CBC daily. Transfuse PRBCs if Hgb less than 8, since he is in such respiratory and hemodynamic distress. Will review his EMR and/or reach out to his PCP for any records regarding a hematologic condition. 10. Melena He presented complaining of generalized abdominal pain for 2 weeks. He stated he had dark stools for the past 1 week. Since he has been somnolent here, he cannot give me details about his melena, says he cannot remember. Gen surgery did report that perhaps being on oral Iron, gave him the melana. Gen Surgery was consult for possible EGD. It was to be done yesterday 10/28, but was cancelled given the hypotension and resp distress. Plan: Following CBC daily Continue empiric Protonix IV bid Will restart a diet today, 11. Anemia Hemoglobin was 9 at admission, and has been stable, not dropping Plan: Follow CBC daily or every 12 hours. Would transfuse PRBCs if hemoglobin less than 8, since he is in such respiratory and hemodynamic distress. 12. DM Plan: We ordered a diabetic diet, hypoglycemia protocol, fingerstick checks before meals and at bedtime and sliding scale insulin coverage. 13. BABATUNDE on CPAP Plan: brought in his CPAP unit, or he may need BIPAP 14. Coronary artery disease, status post CABG Plan: Will restart his cardiac meds now that his BP has risen on pressors 15. Proctitis Admitting provider stated "Questionable proctitis" Plan: Will continue management with empiric antibiotics 16. Benign prostatic hypertrophy PWill resume his meds since the BP has risen on pressors.
[2022-10-29] MEDS: ZINC OXIDE 20% OINT 30 GM TUBE TOP PRN (15:04)
[2022-10-29] MEDS: SOLIFENACIN SUCCINATE 5 MG TABLET PO SCH (19:58)
[2022-10-30 05:00] LABS: CALCIUM, IONIZED 1.03 mmol/L (1.15-1.33); VBG PH 7.269 (7.31-7.41)
[2022-10-30 05:02] LABS: BASOPHILS % (AUTO) 0.4 %; EOSINOPHILS % (AUTO) 0.7 %; HCT - HEMATOCRIT 29.1 % (42.0-52.0); HGB - HEMOGLOBIN 8.3 g/dL (14.0-18.0); LYMPHOCYTES % (AUTO) 5.8 %; MEAN CORPUSCULAR HEMOGLOBIN 31.1 pg (27.0-31.0); MEAN CORPUSCULAR HGB CONC 28.5 g/dL (32.0-36.0); MEAN PLATELET VOLUME 10.8 fL (7.4-11.4); MONOCYTES % (AUTO) 6.5 %; NEUTROPHILS % (AUTO) 85.9 %; PLT - PLATELET COUNT 47 10^3/uL (130-450); RED BLOOD COUNT 2.67 10^6/uL (4.70-6.10); RED CELL DISTRIBUTION WIDTH 18.6 % (12.0-15.0); WHITE BLOOD COUNT 2.8 x10^3/uL (4.8-10.8)
[2022-10-30 05:09] LABS: ABNORMAL LYMPHS % (MANUAL) 0 %; BAND NEUTROPHILS % (MANUAL) 0 %
[2022-10-30 05:30] LABS: EOSINOPHILS # (MANUAL) 0.1 10^3/uL (0-0.7); LYMPHOCYTES # (MANUAL) 0.3 10^3/uL (1.5-3.5); LYMPHOCYTES % (MANUAL) 11 %; NEUTROPHILS # (MANUAL) 2.4 10^3/uL (1.5-6.6)
[2022-10-30 05:31] LABS: DIFFERENTIAL COMMENT MANUAL DIFFERENTIAL; PLATELET ESTIMATE, MANUAL DECREASED (<130,000) (NORMAL)
[2022-10-30 05:32] LABS: CALCIUM 7.7 mg/dL (8.5-10.3); CREATININE 3.9 mg/dL (0.6-1.2); MAGNESIUM 2.3 mg/dL (1.7-2.8); PHOSPHORUS 6.1 mg/dL (2.5-4.6); POTASSIUM 5.6 mmol/L (3.5-5.0)
[2022-10-30] MEDS: FUROSEMIDE 40 MG/4 ML VIAL IVP SCH ×2 (06:00→13:15)
[2022-10-30] MEDS: ACETAMINOPHEN 325 MG TABLET PO PRN (08:17)
[2022-10-30] MEDS: SOLIFENACIN SUCCINATE 5 MG TABLET PO SCH (08:17)
[2022-10-30] MEDS: PANTOPRAZOLE 40 MG VIAL IVP SCH ×2 (08:23→20:51)
[2022-10-30] MEDS: SODIUM CHLORIDE FLUSH 0.9% 10 ML SYRINGE IVP SCH ×3 (08:23→20:51)
[2022-10-30] MEDS: INSULIN LISPRO 300 UNIT/3 ML PEN SUBQ SCH (08:24)
[2022-10-30] MEDS: LORazepam 2 MG/ML VIAL IVP PRN (08:35)
[2022-10-30] MEDS ORDERED: SOLIFENACIN SUCCINATE 5 MG TABLET PO ONE (10:44)
[2022-10-30] MEDS ORDERED: DEXTROSE 5%-0.9% NACL 1,000 ML IV SCH (11:00)
[2022-10-30] MEDS: AMPICILLIN/SULBACTAM 3 GM in SODIUM CHLORIDE 0.9% MINIBAG 100 ML IV SCH ×2 (11:18→23:46)
[2022-10-30] MEDS ORDERED: LOPERAMIDE 2 MG CAPSULE PO PRN (12:00)
[2022-10-30] MEDS: BENZOCAINE/MENTHOL LOZENGE MM PRN (14:37)
[2022-10-30] MEDS: PHENAZOPYRIDINE 100 MG TABLET PO SCH ×2 (15:31→21:14)
[2022-10-30] MEDS: HYDROCORTISONE 1% CREAM 28 GM TUBE TOP PRN ×2 (16:46→21:10)
[2022-10-30] MEDS: LIDOCAINE OINTMENT 5% 35.44 GM TUBE TOP SCH ×3 (16:46→20:51)
--- NOTE | 2022-10-30 16:49 | PROVIDER PROGRESS NOTE ---
Subjective - Subjective Pt reports feeling: Improved (BP is better even after Dobutamone titrated to off.) Objective - Vital Signs/Intake & Output Reviewed Vital Signs: Yes Vital Signs: Vital Signs Temp Pulse Resp BP Pulse Ox O2 Flow Rate 10/30/22 16:00 67 13 116/46 L 92 7 10/30/22 15:00 37.0 C 69 22 127/71 100 7 10/30/22 14:00 59 L 16 116/62 92 7 10/30/22 13:00 61 18 128/60 96 7 Intake & Output: Intake & Output 10/27/22 10/28/22 10/29/22 10/30/22 23:59 23:59 23:59 23:59 Intake Total 1993 2105.984 840.716 765.164 Output Total 50 98 1186 1070 Balance 1944 2006.984 -345.284 -304.836 - Objective General Appearance: positive: Mild distress (Wearing his home CPAP currently) ENT: positive: No signs of dehydration Neck: positive: Other (Cannot evaluate JVP due to obesity and large) Respiratory: positive: Other (Clear anterior lung fernández but diminished breath sounds, no wheezing) Cardiovascular: positive: Other (Distant heart sounds) Abdomen: positive: Non-tender, Other (Ovbese with pannus) Rectal: positive: Other (Scrotal edema the dorsum of the penis has an excoriation that is mildly red and) Skin: positive: Other (1+ edema) Extremities: positive: Non-tender, Other (1-2+ edema) - Lab Results Fish Bones: 10/30/22 04:40 10/30/22 04:40 Other Labs: Lab Results x24hrs 10/30/22 10/30/22 10/30/22 Range/Units 12:33 07:47 04:40 WBC 2.8 L (4.8-10.8) x10^3/uL RBC 2.67 L (4.70-6.10) 10^6/uL Hgb 8.3 L (14.0-18.0) g/dL Hct 29.1 L (42.0-52.0) % MCV 109.0 H (80.0-94.0) fL MCH 31.1 H (27.0-31.0) pg MCHC 28.5 L (32.0-36.0) g/dL RDW 18.6 H (12.0-15.0) % Plt Count 47 L (130-450) 10^3/uL MPV 10.8 (7.4-11.4) fL Neut # (Auto) Not Reportable Lymph # (Auto) Not Reportable [place] # (Auto) Not Reportable Eos # (Auto) Not Reportable Baso # (Auto) Not Reportable Absolute Nucleated RBC Not Reportable Total Counted 100 Band Neuts % (Manual) 0 (0 - 10) % Abnorm Lymph % (Manual) 0 % Nucleated RBC % Not Reportable Neutrophils # (Manual) 2.4 (1.5-6.6) 10^3/uL Lymphocytes # (Manual) 0.3 L (1.5-3.5) 10^3/uL Monocytes # (Manual) 0.0 (0.0-1.0) 10^3/uL Eosinophils # (Manual) 0.1 (0-0.7) 10^3/uL Basophils # (Manual) 0.0 (0-0.1) 10^3/uL Differential Comment MANUAL DIFFERENTIAL Platelet Estimate DECREASED (<130,000) (NORMAL) RBC Morph Micro Appear 1+ OVALOCYTES (NORMAL) VBG pH (7.31-7.41) Ionized Calcium (1.15-1.33) mmol/L Sodium (135-145) mmol/L Potassium (3.5-5.0) mmol/L Chloride (101-111) mmol/L Carbon Dioxide (21-32) mmol/L Anion Gap (6-13) BUN (6-20) mg/dL Creatinine (0.6-1.2) mg/dL Estimated GFR (MDRD) (>89) Glucose (70-100) mg/dL POC Whole Bld Glucose 108 H (70 - 100) mg/dL Calcium (8.5-10.3) mg/dL Phosphorus (2.5-4.6) mg/dL Magnesium (1.7-2.8) mg/dL Stl C. diff Tox B Gene NEGATIVE (NEGATIVE) 10/30/22 10/30/22 10/29/22 Range/Units 04:40 04:40 20:55 WBC (4.8-10.8) x10^3/uL RBC (4.70-6.10) 10^6/uL Hgb (14.0-18.0) g/dL Hct (42.0-52.0) % MCV (80.0-94.0) fL MCH (27.0-31.0) pg MCHC (32.0-36.0) g/dL RDW (12.0-15.0) % Plt Count (130-450) 10^3/uL MPV (7.4-11.4) fL Neut # (Auto) Lymph # (Auto) [place] # (Auto) Eos # (Auto) Baso # (Auto) Absolute Nucleated RBC Total Counted Band Neuts % (Manual) (0 - 10) % Abnorm Lymph % (Manual) % Nucleated RBC % Neutrophils # (Manual) (1.5-6.6) 10^3/uL Lymphocytes # (Manual) (1.5-3.5) 10^3/uL Monocytes # (Manual) (0.0-1.0) 10^3/uL Eosinophils # (Manual) (0-0.7) 10^3/uL Basophils # (Manual) (0-0.1) 10^3/uL Differential Comment Platelet Estimate (NORMAL) RBC Morph Micro Appear (NORMAL) VBG pH 7.269 L (7.31-7.41) Ionized Calcium 1.03 L (1.15-1.33) mmol/L Sodium 141 (135-145) mmol/L Potassium 5.6 H (3.5-5.0) mmol/L Chloride 102 (101-111) mmol/L Carbon Dioxide 31 (21-32) mmol/L Anion Gap 8.0 (6-13) BUN 113 H* (6-20) mg/dL Creatinine 3.9 H (0.6-1.2) mg/dL Estimated GFR (MDRD) 15 L (>89) Glucose 104 H (70-100) mg/dL POC Whole Bld Glucose 106 H (70 - 100) mg/dL Calcium 7.7 L (8.5-10.3) mg/dL Phosphorus 6.1 H (2.5-4.6) mg/dL Magnesium 2.3 (1.7-2.8) mg/dL Stl C. diff Tox B Gene (NEGATIVE) Assessment/Plan - Problem List (1) Shock Impression: I suspect he had cardiogenic shock, given the systolic heart failure, LVEF 35% and dilated LV with global hypokinesis seen on Echo, and no hemorrhage or sepsis was present. Central line was placed. Troponins were recycled and did not show an acute KS. BP improved on Dobutamine at 8 mcg after being transferred into ICU when he was pale and not mentating well on 10/28. Yesterday Dobut was at 4 mcg and had good BP also. He has been able to get IV Lasix during those days. Since overnight the Dobutamine has been titrated very slowly down to off. Plan: Remain in ICU, watch for Hypotension. said she is prepared that he may and did want a Hospice Consult. Today and every day she is at bedside sees that he may survive and how much nursing care he needs, and said that she and her adult son cannot provide such care. I discussed possible scenarios and will request SW to address [facility] location with her. 2. Acute on chronic respiratory failure with hypoxia Patient is usually on 2 to 3 L/min oxygen by nasal cannula at home. Cause of hypoxia is probably multifactorial: from CHF exacerbation, a COPD exacerbation and an aspiration pneumonia and sleep apnea. He is much less wheezing today but has been tachypneic, complaining of orthopnea as well, needing his home CPAP nearly all day long. Plan: Continue with supplemental oxygen and possibly BIPAP need. His home CPAP was brought in also. Unfortunately, we cannot use prn iv Morphine for dyspnea, since he has a hive allergy to oxycodone. Would use sl NTG if needed. We ordered iv Ativan prn anxiety/air hunger, but this may be adding to sleepiness and weakness. We are treating each underlying respiratory problem Decision was made not to intubate, not to use a vent. 3. Acute CHF exacerbation Echo was done 10/27. This showed LV enlargement with global hypokinesis, LVEF 35% Plan: Will resume cardiac meds slolwy and continue Lasix if BP remains good off IV pressors. 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 It is likely from longstanding sleep apnea and COPD. This means he is very sensitive to preload and afterload and excessive diuresis will cause hypotension. Plan: As above in #3 and #4 5. Aspiration pneumonia Plan: Continue empiric antibiotics but we changed Flagyl to Zosyn, due to worsening renal function. Await culture results. 6. Hypersomnolence According to what the family told me, he has up-and-down in alertness: hypersomnolence with confusion, then gets completely alert and oriented. The corroborated that this hypersomnolence has been happening for 1 month; she said "he mostly sleeps all day". He also took a bite of food then has no appetite, Plan: Cintinue pressors via central line, for treating hypotension, since that was likely causing hypoperfusing causing his sleepiness and confusion. Continue monitoring his oxygen and supplementing if needed to keep sats over 88- 90%, since hypoxia could be making him hypersomnolent and confused. His worsening uremia may also be causing somnolence and poor appetite. This was explained and discussed with and son yesterday 7. 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 Since being admitted his creat has worsened daily. We tried diuresing him which caused hypotension. He is oliguric yesterday and today despite resuming diuretics He may have cardiorenal syndrome and/or ATN from hypotension causing renal hypoperfusion. Plan: Avoid nephrotoxins. Follow BMP daily We are trying diuresis, by restarting diuretics now that BP improved on pressors. 8. Hyperkalemia Related to his daily worsening renal function Plan: Will give insulin and D50 to treat very high potassium levels Avoid potassium-containing products. Recheck Whole blood potassium level in several hours Follow BMP daily 9. Pancytopenia, of unknown cause This patient had a low white count of 3 at presentation, and remains in that range daily. He had low platelets at 50 since admission as well. These are all new since last labs done here in 02/2022. I suspect he has an underlying hematologic condition, possibly MDS. Plan: Follow CBC daily. Transfuse PRBCs if Hgb less than 8, since he is in such respiratory and hemodynamic distress. Will review his EMR and/or reach out to his PCP for any records regarding a hematologic condition. 10. Melena He presented complaining of generalized abdominal pain for 2 weeks. He stated he had dark stools for the past 1 week. Since he has been somnolent here, he cannot give me details about his melena, says he cannot remember. Gen surgery did report that perhaps being on oral Iron, gave him the melana. Gen Surgery was consult for possible EGD. It was to be done yesterday 10/28, but was cancelled given the hypotension and resp distress. Plan: Following CBC daily Continue empiric Protonix IV bid Will restart a diet today, 11. Anemia Hemoglobin was 9 at admission, and has been stable, not dropping Plan: Follow CBC daily or every 12 hours. Would transfuse PRBCs if hemoglobin less than 8, since he is in such respiratory and hemodynamic distress. 12. DM He has had a poor appetite for 1 month. Here he is running glucoses of 70- 100. Plan: We ordered a diabetic diet, hypoglycemia protocol, and fingerstick checks before meals and at bedtime Due to very low blood glucoses, will cancel any insulin use 13. BABATUNDE on CPAP Plan: brought in his CPAP unit, or he may need BIPAP 14. Coronary artery disease, status post CABG Plan: Will restart his cardiac meds now that his BP has improved after pressors 15. Proctitis Admitting provider stated "Questionable proctitis" Plan: Will continue management with empiric antibiotics 16. Benign prostatic hypertrophy Will resume his meds since the BP has risen on pressors. 17. Dysuria He calims he has pain when thinks he is urinating. He has a Rivera. Plan: We started Vesicare for poss bladder spasms. Will order oral Pyridium Will order lidocaine ointment to the excorated area of penis.
[2022-10-30] MEDS: ZINC OXIDE 20% OINT 30 GM TUBE TOP PRN ×2 (18:15→21:10)
[2022-10-30] MEDS: SODIUM CHLORIDE FLUSH 0.9% 10 ML SYRINGE IVP PRN ×3 (18:16→20:51)
[2022-10-31] MEDS: BENZOCAINE/MENTHOL LOZENGE MM PRN (00:04)
[2022-10-31] MEDS: SODIUM CHLORIDE FLUSH 0.9% 10 ML SYRINGE IVP PRN ×4 (04:39→23:58)
[2022-10-31 05:05] LABS: BASOPHILS % (AUTO) 0.3 %; HCT - HEMATOCRIT 27.9 % (42.0-52.0); HGB - HEMOGLOBIN 8.1 g/dL (14.0-18.0); LYMPHOCYTES # (AUTO) 0.1 10^3/uL (1.5-3.5); LYMPHOCYTES % (AUTO) 4.8 %; MEAN CORPUSCULAR HEMOGLOBIN 31.4 pg (27.0-31.0); MEAN CORPUSCULAR VOLUME 108.1 fL (80.0-94.0); MEAN PLATELET VOLUME 11.6 fL (7.4-11.4); MONOCYTES # (AUTO) 0.2 10^3/uL (0.0-1.0); MONOCYTES % (AUTO) 7.5 %; NEUTROPHILS # (AUTO) 2.5 10^3/uL (1.5-6.6); NEUTROPHILS % (AUTO) 85.4 %; PLT - PLATELET COUNT 48 10^3/uL (130-450); RED BLOOD COUNT 2.58 10^6/uL (4.70-6.10); RED CELL DISTRIBUTION WIDTH 18.3 % (12.0-15.0); WHITE BLOOD COUNT 2.9 x10^3/uL (4.8-10.8)
[2022-10-31 05:12] LABS: CALCIUM, IONIZED 0.99 mmol/L (1.15-1.33); VBG PH 7.345 (7.31-7.41)
[2022-10-31 05:25] LABS: MAGNESIUM 2.1 mg/dL (1.7-2.8); PHOSPHORUS 5.5 mg/dL (2.5-4.6)
[2022-10-31 05:26] LABS: CALCIUM 7.5 mg/dL (8.5-10.3); CREATININE 3.6 mg/dL (0.6-1.2); POTASSIUM 5.1 mmol/L (3.5-5.0)
[2022-10-31] MEDS: FUROSEMIDE 40 MG/4 ML VIAL IVP SCH ×2 (05:53→13:57)
[2022-10-31] MEDS: PHENAZOPYRIDINE 100 MG TABLET PO SCH ×3 (05:54→20:59)
[2022-10-31] MEDS: HYDROCORTISONE 1% CREAM 28 GM TUBE TOP PRN ×2 (05:59→10:42)
[2022-10-31] MEDS: ZINC OXIDE 20% OINT 30 GM TUBE TOP PRN ×3 (05:59→14:19)
[2022-10-31] MEDS ORDERED: CALCIUM CHLORIDE 2,000 MG in SODIUM CHLORIDE 0.9% 100ML 100 ML IV ONE (08:00)
[2022-10-31] MEDS ORDERED: IPRATROPIUM 0.2 MG/ML NEB INH PRN (09:03)
[2022-10-31] MEDS: SOLIFENACIN SUCCINATE 5 MG TABLET PO SCH (09:59)
[2022-10-31] MEDS: PANTOPRAZOLE 40 MG VIAL IVP SCH (09:59)
[2022-10-31] MEDS: SODIUM CHLORIDE FLUSH 0.9% 10 ML SYRINGE IVP SCH ×3 (10:00→19:30)
--- NOTE | 2022-10-31 10:06 | XRAY Report ---
PROCEDURE: Chest 1 View X-Ray INDICATIONS: SOB and Hypoxia, F/U CHF and pneumonia TECHNIQUE: One view of the chest was acquired. COMPARISON: 10/28/2020 FINDINGS: Surgical changes and devices: Right central line terminates in the lower limits. Sternotomy wires. Lungs and pleura: Overall similar mild to moderate diffuse lung disease, likely edema. Right greater than left pleural effusions. Mediastinum: Borderline cardiomegaly. Heart borders are obscured. Bones and chest wall: No suspicious bony lesions. Overlying soft tissues appear unremarkable. IMPRESSION: Overall similar bilateral lung disease, probably edema, as well as right greater than left mild to mo derate effusions. Consider future imaging surveillance to assess for resolution. Reviewed by: Rick Montoya MD on 10/31/2022 9:05 AM [facility] Approved by: Rick Montoya MD on 10/31/2022 9:05 AM [facility] Station ID: [id number]
[2022-10-31] MEDS: METOPROLOL TARTRATE 25 MG TABLET PO SCH ×2 (10:12→21:00)
[2022-10-31] MEDS: LIDOCAINE OINTMENT 5% 35.44 GM TUBE TOP SCH ×4 (10:42→20:59)
[2022-10-31] MEDS: ALBUTEROL 6.7 GM INHALER INH PRN (10:49)
--- NOTE | 2022-10-31 11:15 | PROVIDER PROGRESS NOTE ---
Subjective - Subjective Pt reports feeling: Improved (Breathing is more comfortable, he is lucid all day, his only complaint is of severe penile pain and left groin pain when he is upright and had to bend at the waist. The painresolved when back in bed and not bent.) Objective - Vital Signs/Intake & Output Vital Signs: Vital Signs Temp Pulse Resp BP BP Pulse Ox O2 Flow Rate 10/31/22 10:12 113/51 L 10/31/22 09:00 63 16 116/57 L 88 L 5 10/31/22 08:00 37.3 C 72 19 126/66 100 5 10/31/22 07:00 61 18 108/68 100 7 Intake & Output: Intake & Output 10/28/22 10/29/22 10/30/22 10/31/22 23:59 23:59 23:59 23:59 Intake Total 2105.984 235.504 1145.164 637 Output Total 98 1186 1500 459 Balance 2006.984 -345.284 -374.836 178 - Objective General Appearance: positive: No acute distress, Alert, Other (wearing O2 per n.c.) Eyes Bilateral: positive: Normal inspection ENT: positive: No signs of dehydration Neck: positive: Other (Is obese and has a large long finnegan, cannot evaluate JVP) Respiratory: positive: No respiratory distress (While on O2 per N. Sleep), Breath sounds nml Cardiovascular: positive: Regular rate & rhythm Abdomen: positive: Non-tender, Other (Obese with pannus) Rectal: positive: Other (Has Rivera catheter in place, has no tenderness to light touch in L groin or mass palpable in left groin) Skin: positive: Warm, Dry Extremities: positive: No pedal edema Neurologic/Psychiatric: positive: Oriented x3, Motor nml - Lab Results Fish Bones: 10/31/22 04:40 10/31/22 04:40 Other Labs: Lab Results x24hrs 10/31/22 10/31/22 10/31/22 Range/Units 04:40 04:40 04:40 WBC (4.8-10.8) x10^3/uL RBC (4.70-6.10) 10^6/uL Hgb (14.0-18.0) g/dL Hct (42.0-52.0) % MCV (80.0-94.0) fL MCH (27.0-31.0) pg MCHC (32.0-36.0) g/dL RDW (12.0-15.0) % Plt Count (130-450) 10^3/uL MPV (7.4-11.4) fL Neut # (Auto) (1.5-6.6) 10^3/uL Lymph # (Auto) (1.5-3.5) 10^3/uL [place] # (Auto) (0.0-1.0) 10^3/uL Eos # (Auto) (0.0-0.7) 10^3/uL Baso # (Auto) (0.0-0.1) 10^3/uL Absolute Nucleated RBC x10^3/uL Nucleated RBC % /100WBC VBG pH 7.345 (7.31-7.41) Ionized Calcium 0.99 L (1.15-1.33) mmol/L Sodium 142 (135-145) mmol/L Potassium 5.1 H (3.5-5.0) mmol/L Chloride 102 (101-111) mmol/L Carbon Dioxide 30 (21-32) mmol/L Anion Gap 10.0 (6-13) BUN 104 H* (6-20) mg/dL Creatinine 3.6 H (0.6-1.2) mg/dL Estimated GFR (MDRD) 16 L (>89) Glucose 115 H (70-100) mg/dL POC Whole Bld Glucose (70 - 100) mg/dL Calcium 7.5 L (8.5-10.3) mg/dL Phosphorus 5.5 H (2.5-4.6) mg/dL Magnesium 2.1 (1.7-2.8) mg/dL Stl C. diff Tox B Gene (NEGATIVE) 10/31/22 10/30/22 10/30/22 Range/Units 04:40 20:35 16:50 WBC 2.9 L (4.8-10.8) x10^3/uL RBC 2.58 L (4.70-6.10) 10^6/uL Hgb 8.1 L (14.0-18.0) g/dL Hct 27.9 L (42.0-52.0) % MCV 108.1 H (80.0-94.0) fL MCH 31.4 H (27.0-31.0) pg MCHC 29.0 L (32.0-36.0) g/dL RDW 18.3 H (12.0-15.0) % Plt Count 48 L (130-450) 10^3/uL MPV 11.6 H (7.4-11.4) fL Neut # (Auto) 2.5 (1.5-6.6) 10^3/uL Lymph # (Auto) 0.1 L (1.5-3.5) 10^3/uL [place] # (Auto) 0.2 (0.0-1.0) 10^3/uL Eos # (Auto) 0.0 (0.0-0.7) 10^3/uL Baso # (Auto) 0.0 (0.0-0.1) 10^3/uL Absolute Nucleated RBC 0.00 x10^3/uL Nucleated RBC % 0.0 /100WBC VBG pH (7.31-7.41) Ionized Calcium (1.15-1.33) mmol/L Sodium (135-145) mmol/L Potassium (3.5-5.0) mmol/L Chloride (101-111) mmol/L Carbon Dioxide (21-32) mmol/L Anion Gap (6-13) BUN (6-20) mg/dL Creatinine (0.6-1.2) mg/dL Estimated GFR (MDRD) (>89) Glucose (70-100) mg/dL POC Whole Bld Glucose 158 H 107 H (70 - 100) mg/dL Calcium (8.5-10.3) mg/dL Phosphorus (2.5-4.6) mg/dL Magnesium (1.7-2.8) mg/dL Stl C. diff Tox B Gene (NEGATIVE) 10/30/22 Range/Units 12:33 WBC (4.8-10.8) x10^3/uL RBC (4.70-6.10) 10^6/uL Hgb (14.0-18.0) g/dL Hct (42.0-52.0) % MCV (80.0-94.0) fL MCH (27.0-31.0) pg MCHC (32.0-36.0) g/dL RDW (12.0-15.0) % Plt Count (130-450) 10^3/uL MPV (7.4-11.4) fL Neut # (Auto) (1.5-6.6) 10^3/uL Lymph # (Auto) (1.5-3.5) 10^3/uL [place] # (Auto) (0.0-1.0) 10^3/uL Eos # (Auto) (0.0-0.7) 10^3/uL Baso # (Auto) (0.0-0.1) 10^3/uL Absolute Nucleated RBC x10^3/uL Nucleated RBC % /100WBC VBG pH (7.31-7.41) Ionized Calcium (1.15-1.33) mmol/L Sodium (135-145) mmol/L Potassium (3.5-5.0) mmol/L Chloride (101-111) mmol/L Carbon Dioxide (21-32) mmol/L Anion Gap (6-13) BUN (6-20) mg/dL Creatinine (0.6-1.2) mg/dL Estimated GFR (MDRD) (>89) Glucose (70-100) mg/dL POC Whole Bld Glucose (70 - 100) mg/dL Calcium (8.5-10.3) mg/dL Phosphorus (2.5-4.6) mg/dL Magnesium (1.7-2.8) mg/dL Stl C. diff Tox B Gene NEGATIVE (NEGATIVE) Assessment/Plan - Problem List (1) Shock Impression: I suspect he had cardiogenic shock, given the systolic heart failure, LVEF 35% and dilated LV with global hypokinesis seen on Echo, and no hemorrhage or sepsis was present. Central line was placed. Troponins were recycled and did not show an acute ME. BP improved on Dobutamine at 8 mcg after being transferred into ICU when he was pale and not mentating well on 10/28. The next day Dobut was at 4 mcg and he had a good BP also. He has been able to get IV Lasix during those days. The Dobutamine has been titrated very slowly down to off as of yesterday a.m. 10/30 Plan: Remain in ICU, watch for Hypotension, since many cardiac meds are being restarted today. said she is prepared that he may and did want a Hospice Consult, which was ordered. Today and every day is at bedside and now sees that he may survive and sees how much nursing care he needs, and said that she and her adult son cannot provide such care. I discussed possible scenarios and will request SW to address [facility] location with her. 2. Acute on chronic respiratory failure with hypoxia Patient is usually on 2 to 3 L/min oxygen by nasal cannula at home. Cause of hypoxia is multifactorial: from CHF exacerbation, sleep apnea, possibly COPD exacerbation, and an aspiration pneumonia at admission. He is much less wheezy every day but gets tachypneic, complains of orthopnea as well, needing his home CPAP nearly all day long with O2 bled in. Plan: Continue with supplemental oxygen and possibly will need BIPAP. His home CPAP was brought in to use. Unfortunately, we cannot use prn iv Morphine for dyspnea, since he has a hive allergy to oxycodone. Would use sl NTG if needed. We ordered iv Ativan prn anxiety/air hunger, but this may be adding to sleepiness and weakness, thus the dose was decreased. We are treating each underlying respiratory problem Decision was made not to intubate, not to use a vent. 3. Acute CHF exacerbation Echo was done 10/27. This showed LV enlargement with global hypokinesis, LVEF 35%. Troponins ruled him out for an acute ME. He required a Dobutamine drip in ICU, which improved his hypotension and allowed us to order iv Lasix. Using iv BID Lasix, he has had (-) fluid balance for the past 3 days. A CXR was done today, and it still shows significant pulm edema plus moderate pleural effusions. Plan: We resumed cardiac meds today and continuing Lasix iv bid, since BP remains good off IV pressors. Start Spironolactone Will stop non-essential fluids (the TKO D5, and iv pushes of NS). 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 It is likely from longstanding sleep apnea and COPD. This means he is very sensitive to preload and afterload and excessive diuresis will cause hypotension. Plan: As above in #2 and #3 5. Aspiration pneumonia This was seen on admission He received empiric antibiotics which were changed Flagyl to Zosyn, due to worsening renal function. Cultures have remained neg. Plan: Will give a 7-day total dose then stop. 6. Dysuria He claims he has pain when he thinks he is urinating. He has a Rivera in place. The MEAL GRINDER TENDER noticed he has a skin excoriation about the size of a quarter, on the ventral side of his penis, near the meatus. No other rash. Plan: We started Vesicare for poss bladder spasms. We ordered oral Pyridium We ordered Lidocaine ointment to the excorated area of penis. Will add prn Fentanyl (or Demerol, but we do not carry Demerol), since he has a Oxycodone allergy that caused hives. Discussed with [facility] in [facility]. Will request a Gen Surg consult to al if he has a hernia, which I now suspect. 7. Acute on chronic renal failure Patient had a operations intelligence and has CKD. We tried diuresing him which caused hypotension and he was oliguric. Since being admitted, his creat had worsened daily: 2.5 at admission>> 2.6>> 3.6>> 3.8>> 4.1>> 3.9 yesterday>> 3.6 today. He may have cardiorenal syndrome and/or had ATN from hypotension causing renal hypoperfusion. Plan: Avoid nephrotoxins. Follow BMP daily, especially with adding Spironolactone today. Continue diuresis now that BP improved after being on pressors. 8. Hyperkalemia Related to his daily worsening renal function Plan: We gave insulin and D50 to treat very high potassium levels Avoid potassium-containing products. Follow BMP daily 9. Pancytopenia, of unknown cause This patient had a low white count of 3 at presentation, and remains in that range daily. He had low platelets at 50 since admission as well. These are all new since last labs done here in 02/2022. I suspect he has an underlying hematologic condition, possibly MDS. Plan: Follow CBC daily. Transfuse PRBCs if Hgb less than 8, since he is in such respiratory distress and hemodynamic derangement. Will review his EMR and/or reach out to his PCP for any records regarding a hematologic condition. 10. Melena He presented complaining of generalized abdominal pain for 2 weeks. He stated he had dark stools for the past 1 week. When he was somnolent here, he could not give me details about his melena, says he cannot remember. Gen surgery did report that perhaps being on oral Iron, gave him the melana. Gen Surgery was consulted early this admission for a possible EGD. It was cancelled given the hypotension and resp distress and he needed to be put in the ICU. Since then Hgb has been low but stable Plan: Following CBC daily We will change his IV twice daily Protonix to oral twice daily, to limit the fluids given to him. No EGD planned given the stable H/H. 11. Anemia Hemoglobin was 9 at admission, and has been relatively stable, not dropping rapidly Plan: Follow CBC daily Would transfuse PRBCs if hemoglobin less than 8, since he is in such respiratory and hemodynamic distress. 12. DM He has had a poor appetite for 1 month. Here he is running glucoses of 70- 100. We ordered a diabetic diet, hypoglycemia protocol, and fingerstick checks before meals and at bedtime Due to very low blood glucoses, we cancelled any insulin use yesterday 10/30. We had him on TKO D5W, to prevent hypoglycemia Plan: We will stop the TKO D5W in order to decrease fluids because of his CHF on chest x-ray today We will also cancel his diabetic diet and order a regular diet to help prevent hypoglycemia 13. BABATUNDE on CPAP Plan: brought in his CPAP unit, and he is getting O2 bled in. Continue this. 14. Hypersomnolence Improving. According to what the family told me, he has up-and-down in alertness: hypersomnolence with confusion, then gets completely alert and oriented. The corroborated that this hypersomnolence has been happening for 1 month; she said "he mostly sleeps all day". He also took a bite of food then has no appetite. His alertness improved when pressors were started for treating hypotension, since that was likely causing hypoperfusing causing his sleepiness and confusion . Plan: Continue monitoring his oxygen and supplementing if needed to keep sats over 88- 90%, since hypoxia could be making him hypersomnolent and confused. His worsening uremia may also be causing somnolence and poor appetite. This was explained and discussed with and son several days ago. 15. Coronary artery disease, status post CABG Plan: We restarted his cardiac meds today, now that his BP has improved after pressors 16. Proctitis Admitting provider stated "Questionable proctitis" Plan: Will continue management with empiric antibiotics. 17. Benign prostatic hypertrophy Will resume his meds since the BP has risen on pressors.
[2022-10-31] MEDS: AMPICILLIN/SULBACTAM 3 GM in SODIUM CHLORIDE 0.9% MINIBAG 100 ML IV SCH ×2 (12:09→23:57)
[2022-10-31] MEDS: ACETAMINOPHEN 325 MG TABLET PO PRN (13:56)
--- NOTE | 2022-10-31 18:32 | CONSULTATION NOTE ---
Surgery Consult - Admit Date Hospital Admission Date: 10/27/22 - Consult Date Consult Date: 10/31/22 Requesting Provider: Dr. De La Cruz - Chief Complaint Chief Complaint: Left groin pain - Home Meds/Allergies Home Medications: Patient History Medication Instructions Recorded Confirmed Aspirin [Adult Aspirin Regimen] 81 mg PO DAILY 06/06/20 10/27/22 Insulin Glargine [Lantus Solostar] 10 - 30 units SQ QPM 06/06/20 10/27/22 Losartan [Cozaar] 50 mg PO BID 06/06/20 10/27/22 Tamsulosin [Flomax] 0.4 mg PO DAILY 12/02/20 10/27/22 Insulin Aspart [NovoLOG] 2 - 12 unit SUBQ QDDINNER 03/02/22 10/27/22 Ipratropium [Atrovent] 0.5 mg INH QID PRN 03/02/22 10/27/22 Albuterol [Proventil Hfa] 1 puffs INH Q4H PRN 10/27/22 10/27/22 Atorvastatin Calcium 40 mg PO QPM 10/27/22 10/27/22 Carvedilol [Coreg] 25 mg PO BIDWM 10/27/22 10/27/22 Furosemide [Lasix] 40 mg PO DAILY 10/27/22 10/27/22 Umeclidinium Brm/Vilanterol Tr 1 puffs INH DAILY 10/27/22 10/27/22 [Anoro Ellipta 62.5-25 Mcg INH] Allergies/Adverse Reactions: Allergies Allergy/AdvReac Type Severity Reaction Status Date / Time pneumococcal vaccine Allergy Anaphylaxis Verified 10/26/22 15:22 oxycodone [From Percodan] AdvReac Hives Verified 10/26/22 15:22 - Vital Signs Vital Signs: Last Vital Signs Temp 98.9 F 10/31/22 15:00 Pulse 65 10/31/22 17:00 Resp 16 10/31/22 17:00 BP 102/89 H 10/31/22 17:00 Pulse Ox 100 10/31/22 17:00 O2 Flow Rate 5 10/31/22 17:00 Intake & Output: Intake & Output 10/28/22 10/29/22 10/30/22 10/31/22 23:59 23:59 23:59 23:59 Intake Total 2105.984 229.466 0063.164 1247 Output Total 98 1186 1500 741 Balance 2007.984 -345.284 -374.836 506 - Lab Results Result Diagrams: 10/31/22 04:40 10/31/22 04:40 - Consultation Note Consultation Note: S: Sachin is an 82 year old male whom I am asked to evaluate for a possible left inguinal hernia. He has been in the ICU for several days to treat severe cardiogenic shock and he has responded well to the treatments. He claims to have a worsening cough during this illness and during ambulation today he mentioned left groin discomfort with standing which resolves with lying down. He has had similar discomfort over the last several months but not as severe as today. He tells me that he had a LIH repair with mesh in [place], [place] about 5 years ago. After that procedure he developed severe pain with urination that continues to bother him. He denies hematuria. He is uncertain whether there is a bulge in the left groin when he has symptoms. He denies nausea or vomiting and has no other abdominal or groin discomfort. His ROS is negative other than for the left groin discomfort and pain with urina tion. PMH, PSH, Meds, Allergies, reviewed by me. O: VSS, afeb; Abdomen is soft, non-tender, not distended. I do not identify any laparoscopic port site scars. The penile shaft and scrotal sac demonstrates significant edema. There is a small reducible left inguinal hernia. The defect is tender to palpation and a small wad of soft tissue protrudes through the defect with valsalva. There is no clinical evidence of a left inguinal hernia. CT abd/pelvis 10/26/2022 - There is a small LIH containing fluid and adipose tissue in the left groin. The mesh appears to have rolled away from the lateral pelvic floor (Coronal view 20, 21,22) causing the recurrent defect. A: 1) Recurrent LIH, reducible. 2) Pain with micturation Recommendation: There is no indication for immediate surgery as the hernia is reducible. Once his cardiac status improves, he can be evaluated in the out-patient clinic for repair. Outpatient Urology consult for his painful urination should be also considered. Boaz Whittington MD General Surgery service
[2022-10-31] MEDS: ATORVASTATIN 40 MG TABLET PO SCH (20:59)
[2022-10-31] MEDS: TAMSULOSIN 0.4 MG CAPSULE PO SCH (20:59)
[2022-10-31] MEDS: PANTOPRAZOLE 40 MG TABLET PO SCH (20:59)
[2022-11-01] MEDS: SODIUM CHLORIDE FLUSH 0.9% 10 ML SYRINGE IVP SCH ×4 (00:30→23:53)
[2022-11-01] MEDS: FUROSEMIDE 40 MG/4 ML VIAL IVP SCH ×2 (05:15→13:43)
[2022-11-01] MEDS: PHENAZOPYRIDINE 100 MG TABLET PO SCH ×3 (05:15→21:23)
[2022-11-01] MEDS: ZINC OXIDE 20% OINT 30 GM TUBE TOP PRN ×2 (05:16→08:40)
[2022-11-01] MEDS: HYDROCORTISONE 1% CREAM 28 GM TUBE TOP PRN (05:16)
[2022-11-01] MEDS: SODIUM CHLORIDE FLUSH 0.9% 10 ML SYRINGE IVP PRN ×3 (05:16→12:43)
--- NOTE | 2022-11-01 07:40 | PROVIDER PROGRESS NOTE ---
Assessment/Plan - Problem List (1) Acute and chronic respiratory failure Assessment/Plan: Patient is usually on 2 to 3 L/min oxygen by nasal cannula at home. The cause of hypoxia is multifactorial: from CHF exacerbation, sleep apnea, possibly COPD exacerbation, and an aspiration pneumonia at admission. He is much less wheezy every day but gets tachypneic, complains of orthopnea as well, needing his home CPAP with O2 bled in. Plan: Continue with supplemental oxygen and possibly will need BIPAP. His home CPAP was brought in to use. Unfortunately, we cannot use prn iv Morphine for dyspnea, since he has a hive allergy to oxycodone. Would use sl NTG if needed to treat dyspnea. We are treating each underlying respiratory problem He is a DNR/DNI 2. Acute CHF exacerbation Echo was done 10/27. This showed LV enlargement with global hypokinesis, LVEF 35%. Troponins ruled him out for an acute TN. Because of pulm edema with hypotension (BP was 60systolic), he required a Dobutamine drip for 2 days and was in ICU. That improved his hypotension and a llowed us to order iv Lasix. Using iv BID Lasix, he has had (-) fluid balance for the past days. Exam today shows bilat rales again Plan: Continuing Lasix 40 mg iv bid, since BP remains good off IV pressors. We started Spironolactone and resumed B-adrienne We stopped non-essential fluids (the TKO D5, and iv pushes of NS). We ordered a total fluid restriction in his diet of 1500 cc/day total He will need a blood transfusion today and will give an additional iv Lasix with that transfusion. Unfortunately, we cannot use prn iv Morphine for dyspnea, since he has a hive allergy to oxycodone. Would use sl NTG if needed to treat dyspnea. 3. Cor Pulmonale This was also seen on his Echo done 10/27. It is likely from longstanding sleep apnea and COPD. This means he is very sensitive to preload and afterload and excessive diuresis will cause hypotension. Plan: As above in #1 and #1 4. Aspiration pneumonia This was seen on admission He received empiric antibiotics which were changed to Flagyl to Zosyn, due to worsening renal function. Cultures have remained neg. Plan: Will give a 7-day total dose then stop. 5. Dysuria He described severe penile pain when he thinks he is urinating. He has a Rivera in place. The DEGREASER noticed he has a skin excoriation about the size of a quarter, on the ventral side of his penis, near the meatus. No other rash. Yesterday, he also complaine of L inguinal pain, worse when coughing. I suspected a hernia. We got a Gen Surg consult on 10/31, which agreed, he has a hernia. Plan: We started Vesicare for poss bladder spasms. We ordered oral Pyridium We ordered Lidocaine ointment to the excorated area of penis. We ordered prn Fentanyl, since he has a Oxycodone allergy that caused hives. 6. Acute on chronic renal failure Patient had a director patient and has CKD. We tried diuresing him which caused hypotension and he was oliguric. Since being admitted, his creat had worsened now has slt improved. He may have cardiorenal syndrome and/or had ATN from hypotension causing renal hypoperfusion. Plan: Avoid nephrotoxins. Follow BMP daily, especially with adding Spironolactone Continue diuresis now that BP improved after being on pressors. 7. Pancytopenia, of unknown cause This patient had a low white count of 3 at presentation, and remains in that range daily. He had low platelets at 50 since admission as well. These are all new since last labs done here in 02/2022. I suspect he has an new underlying hematologic condition, possibly MDS. Plan: Follow CBC daily. Plan to transfuse PRBCs if Hgb less than 8, since he gets such respiratory distress and had hemodynamic instability also. We reviewed his EMR. Will reach out to his PCP for any records regarding a hematologic condition. 8. Melena He presented complaining of generalized abdominal pain for 2 weeks. He stated he had dark stools for the past 1 week. When he was somnolent here, he could not give me details about his melena, says he cannot remember. Gen surgery did report that perhaps being on oral Iron, gave him the melana. Gen Surgery was consulted early this admission for a possible EGD. It was cancelled given the hypotension and resp distress and he needed to be put in the ICU. Since then Hgb has been low but relatively stable Plan: Following CBC daily We changed his empiric IV BID Protonix to oral BID dose, to limit the fluids given to him. No EGD had been done 9. Anemia Hemoglobin was 9 at admission, and had been relatively stable. Today Hgb is 7.8, despite neg fluid balance for several days. Plan: Follow CBC daily Will transfuse 1 U of PRBCs, since Hgb is less than 8, since he is in respiratory distress. Will give extra dose of Lasix iv after transfusion. 10. DM He has had a poor appetite for 1 month. Here he is running glucoses of 70- 100. We ordered a diabetic diet, hypoglycemia protocol, and fingerstick checks before meals and at bedtime Due to very low blood glucoses, we cancelled any insulin use 10/30. We also had him on D5W at [facility] for a day, to prevent hypoglycemia. Plan: D5W stopped in order to decrease fluids because of his CHF We also cancelled his diabetic diet and ordered a regular diet to help prevent hypoglycemia 11. BABATUNDE on CPAP Plan: brought in his CPAP unit, and he is getting O2 bled in. Continue this. He may need to have O2 bled into this or may be a BIPAP and Trilogy candidate. 12. Hyperkalemia Improved. It was related to his daily worsening renal function Plan: We gave insulin and D50 to treat very high potassium levels Avoid potassium-containing products. Follow BMP daily 13. Hypersomnolence Improved. According to what the family told me, he has up-and-down in alertness: hypersomnolence with confusion, then gets completely alert and oriented. The corroborated that this hypersomnolence has been happening for 1 month; she said "he mostly sleeps all day". He also took a bite of food then has no appeti te. His alertness improved when pressors were started for treating hypotension, since that was likely causing hypoperfusing causing his sleepiness and confusion. Plan: Continue monitoring his oxygen and supplementing to keep sats over 88-90%, since hypoxia could be making him hypersomnolent and confused. His worsening uremia may also have been causing somnolence and poor appetite. 14. Coronary artery disease, status post CABG Plan: We restarted his cardiac meds when his BP improved after pressors 15. Proctitis Admitting provider stated "Questionable proctitis" Plan: Will continue management with empiric antibiotics for 7 days. 16. Benign prostatic hypertrophy Will resumed his meds when the BP had risen on pressors. 17. Shock Resolved, he was moved out of ICU yesterday 10/31 I suspected he had cardiogenic shock, given the systolic heart failure, LVEF 35% and dilated LV with global hypokinesis seen on Echo, and no hemorrhage or sepsis was present. Central line was placed. Troponins were recycled and did not show an acute TN. He was transferred into ICU when he was pale and not mentating well on 10/28. BP improved on Dobutamine, which he got for 2 days. - Current Meds Current Meds: Current Medications Generic Name Dose Route Start Last Admin Trade Name Freq PRN Reason Stop Dose Admin Acetaminophen 650 mg 10/27/22 02:59 10/31/22 13:56 Acetaminophen 325 Mg Tablet PO 650 mg Q4HR PRN Administration Pain 1 to 4, or Fever Albuterol 1 puffs 10/31/22 09:11 10/31/22 10:49 Albuterol 6.7 Gm Inhaler INH 1 puffs Q4H PRN Administration Shortness of Air/Wheezing Atorvastatin Calcium 40 mg 10/31/22 21:00 10/31/22 20:59 Atorvastatin 40 Mg Tablet PO 40 mg QPM DORA Administration Furosemide 40 mg 10/28/22 14:00 11/01/22 05:15 Furosemide 40 Mg/4 Ml Vial IVP 40 mg BIDDIURETIC DORA Administration Hydrocortisone 1 applic 10/30/22 10:45 11/01/22 05:16 Hydrocortisone 1% Cream 28 Gm Tube TOP 1 applic BID PRN Administration NEEDED PER PROVIDER ORDERS Ampicillin Sodium/Sulbactam 100 mls @ 200 mls/hr 10/28/22 12:00 11/01/22 00:30 Sodium 3 gm/ Sodium Chloride IV Infused Q12H DORA Infusion Lidocaine 1 applic 10/30/22 15:08 10/31/22 20:59 Lidocaine Ointment 5% 35.44 Gm Tube TOP 1 applic QID DORA Administration Loperamide HCl 2 mg 10/30/22 12:00 10/30/22 14:46 Loperamide 2 Mg Capsule PO 2 mg QID PRN Administration Diarrhea Lorazepam 0.5 mg 10/29/22 11:32 10/30/22 08:35 Lorazepam 2 Mg/Ml Vial IVP 0.5 mg Q2H PRN Administration Anxiety Metoprolol Tartrate 12.5 mg 10/31/22 10:00 10/31/22 21:00 Metoprolol Tartrate 25 Mg Tablet PO 12.5 mg BID DORA Administration Multi-Ingredient Ointment 1 applic 10/30/22 10:47 11/01/22 05:16 Zinc Oxide 20% Oint 30 Gm Tube TOP 1 applic PRN PRN Administration Skin Care Ondansetron HCl 4 mg 10/27/22 02:59 10/29/22 10:47 Ondansetron 4 Mg/2 Ml Vial IVP 4 mg Q6HR PRN Administration Nausea / Vomiting Pantoprazole Sodium 40 mg 10/31/22 21:00 10/31/22 20:59 Pantoprazole 40 Mg Tablet PO 40 mg BID DORA Administration Phenazopyridine HCl 100 mg 10/30/22 16:00 11/01/22 05:15 Phenazopyridine 100 Mg Tablet PO 100 mg TID DORA Administration Sodium Chloride 10 ml 10/27/22 02:59 11/01/22 05:16 Sodium Chloride Flush 0.9% 10 Ml Syringe IVP 10 ml PRN PRN Administration NEEDED PER PROVIDER ORDERS Sodium Chloride 10 ml 10/27/22 09:00 11/01/22 00:30 Sodium Chloride Flush 0.9% 10 Ml Syringe IVP 10 ml 0100,0900,1700 DORA Administration Solifenacin 10 mg 10/31/22 09:00 10/31/22 09:59 Solifenacin Succinate 5 Mg Tablet PO 10 mg DAILY DORA Administration Tamsulosin HCl 0.4 mg 10/31/22 21:00 10/31/22 20:59 Tamsulosin 0.4 Mg Capsule PO 0.4 mg QPM DORA Administration Throat Lozenges 1 lozenge 10/30/22 14:20 10/31/22 00:04 Benzocaine/Menthol Lozenge MM 1 lozenge Q2HR PRN Administration Throat pain - Lab Result Fish Bone Diagrams: 11/01/22 07:52 11/01/22 07:52 - Additional Planning My Orders: My Active Orders 10/31/22 09:00 Solifenacin Succinate [Vesicare] 10 mg PO DAILY 10/31/22 09:03 Ipratropium [Atrovent] 0.5 mg INH QID PRN 10/31/22 09:04 Nebulizer/MDI Tx. [RC] PRN Resp Teach Nebulizer/MDI [RC] .ONCE 10/31/22 09:11 Albuterol [Proventil Hfa] 1 puffs INH Q4H PRN 10/31/22 10:00 Metoprolol Tartrate [Lopressor] 12.5 mg PO BID 10/31/22 Lunch DIET [Soft (Low Fiber) Diet] [DIET] 10/31/22 17:29 fentaNYL 25 mcg IVP Q2HR PRN 10/31/22 21:00 Atorvastatin [Lipitor] 40 mg PO QPM Pantoprazole [Protonix] 40 mg PO BID Tamsulosin [Flomax] 0.4 mg PO QPM 11/01/22 BMP - BASIC METABOLIC PANEL [CHEM] Urgent Evaluate and Treat OT [OT] Routine Evaluate and Treat PT [PT] Routine 11/01/22 07:34 Transfer [Admit \\ Transfer \\ Status] [RC] .ONCE 11/01/22 07:35 Telemetry- [RC] Q4HR 11/01/22 07:36 Miscellaenous Nursing Order [RC] QSHIFT Vital Signs [RC] Q4HR 11/01/22 07:37 CBC - COMP BLD CT W/AUTO DIFF [HEME] Urgent 11/01/22 09:00 Aspirin EC [Ecotrin] 81 mg PO DAILY 11/02/22 05:00 BMP - BASIC METABOLIC PANEL [CHEM] DAILYLAB CBC - COMP BLD CT W/AUTO DIFF [HEME] DAILYLAB 11/03/22 05:00 BMP - BASIC METABOLIC PANEL [CHEM] DAILYLAB CBC - COMP BLD CT W/AUTO DIFF [HEME] DAILYLAB 11/04/22 05:00 BMP - BASIC METABOLIC PANEL [CHEM] DAILYLAB CBC - COMP BLD CT W/AUTO DIFF [HEME] DAILYLAB 11/05/22 05:00 BMP - BASIC METABOLIC PANEL [CHEM] DAILYLAB CBC - COMP BLD CT W/AUTO DIFF [HEME] DAILYLAB Subjective - Subjective Patient Reports: Feeling Better (Breathing is better overall. Alertness is much better.), Other (Feels weak, has not been OOB in about a month, he said.) Objective Vital Signs: Vital Signs - 24 hr 10/31/22 10/31/22 10/31/22 08:00 09:00 10:12 Temperature 37.3 C Heart Rate Heart Rate [ 72 63 Monitoring electrodes] Respiratory 19 16 Rate Blood Pressure 113/51 L Blood Pressure 126/66 116/57 L [Left Brachial artery] O2 Saturation 100 88 L If not protocol 5 5 : Oxygen Flow, liters/minute 10/31/22 10/31/22 10/31/22 10:52 11:00 13:00 Temperature Heart Rate 62 Heart Rate [ 60 67 Monitoring electrodes] Respiratory 14 18 18 Rate Blood Pressure Blood Pressure 122/56 L 91/68 [Left Brachial artery] O2 Saturation 100 100 If not protocol 7 5 5 : Oxygen Flow, liters/minute 10/31/22 10/31/22 10/31/22 15:00 17:00 18:38 Temperature 37.2 C Heart Rate Heart Rate [ 63 65 66 Monitoring electrodes] Respiratory 17 16 17 Rate Blood Pressure Blood Pressure 106/50 L 102/89 H 117/54 L [Left Brachial artery] O2 Saturation 100 100 100 If not protocol 5 5 7 : Oxygen Flow, liters/minute 10/31/22 10/31/22 10/31/22 19:00 19:25 21:00 Temperature 36.7 C Heart Rate Heart Rate [ 64 63 Monitoring electrodes] Respiratory 10 L 16 Rate Blood Pressure 111/96 H Blood Pressure 136/56 H 124/64 [Left Brachial artery] O2 Saturation 100 100 If not protocol 7 7 7 : Oxygen Flow, liters/minute 10/31/22 11/01/22 11/01/22 23:00 01:00 03:00 Temperature Heart Rate Heart Rate [ 62 64 60 Monitoring electrodes] Respiratory 13 17 15 Rate Blood Pressure Blood Pressure 117/51 L 123/53 L 115/47 L [Left Brachial artery] O2 Saturation 100 100 100 If not protocol 7 7 7 : Oxygen Flow, liters/minute 11/01/22 11/01/22 05:20 07:00 Temperature 36.9 C Heart Rate Heart Rate [ 64 61 Monitoring electrodes] Respiratory 18 18 Rate Blood Pressure Blood Pressure 129/57 L 118/61 [Left Brachial artery] O2 Saturation 100 100 If not protocol 7 7 : Oxygen Flow, liters/minute Oxygen O2 Source CPAP Oxygen Flow Rate 4 I&O (Last 24 Hrs): Intake and Output Totals x24h 10/30/22 10/31/22 11/01/22 23:59 23:59 23:59 Intake Total 4865.721 2804 300 Output Total 1500 903 353 Balance -374.836 619 -53 General: Alert, Oriented x3, Other (PAle) HEENT: Mucous membr. moist/pink, Other (wearing O2 per n.c.) Neck: Supple, Other (Obese and cannot evaluate JVP) Neuro: Alert, Non Focal, Other (Has generalized weakness) Cardiovascular: Regular rate, No murmurs (Heart sounds very distant due to morb id obesity) Respiratory: Rales (both bases) Abdomen: Soft, No tenderness, Other (Obese with a pannus) Extremities: Other (1+ edema) - Results Results: Laboratory Results WBC 2.9 x10^3/uL (4.8-10.8) L 10/31/22 04:40 RBC 2.58 10^6/uL (4.70-6.10) L 10/31/22 04:40 Hgb 8.1 g/dL (14.0-18.0) L 10/31/22 04:40 Hct 27.9 % (42.0-52.0) L 10/31/22 04:40 MCV 108.1 fL (80.0-94.0) H 10/31/22 04:40 MCH 31.4 pg (27.0-31.0) H 10/31/22 04:40 MCHC 29.0 g/dL (32.0-36.0) L 10/31/22 04:40 RDW 18.3 % (12.0-15.0) H 10/31/22 04:40 Plt Count 48 10^3/uL (130-450) L 10/31/22 04:40 MPV 11.6 fL (7.4-11.4) H 10/31/22 04:40 Neut # (Auto) 2.5 10^3/uL (1.5-6.6) 10/31/22 04:40 Lymph # (Auto) 0.1 10^3/uL (1.5-3.5) L 10/31/22 04:40 [place] # (Auto) 0.2 10^3/uL (0.0-1.0) 10/31/22 04:40 Eos # (Auto) 0.0 10^3/uL (0.0-0.7) 10/31/22 04:40 Baso # (Auto) 0.0 10^3/uL (0.0-0.1) 10/31/22 04:40 Absolute Nucleated RBC 0.00 x10^3/uL 10/31/22 04:40 Total Counted 100 10/30/22 04:40 Band Neuts % (Manual) 0 % (0-10) 10/30/22 04:40 Reactive Lymphs % (Man) 3 % 10/26/22 15:52 Abnorm Lymph % (Manual) 0 % 10/30/22 04:40 Nucleated RBC % 0.0 /100WBC 10/31/22 04:40 Neutrophils # (Manual) 2.4 10^3/uL (1.5-6.6) 10/30/22 04:40 Lymphocytes # (Manual) 0.3 10^3/uL (1.5-3.5) L 10/30/22 04:40 Monocytes # (Manual) 0.0 10^3/uL (0.0-1.0) 10/30/22 04:40 Eosinophils # (Manual) 0.1 10^3/uL (0-0.7) 10/30/22 04:40 Basophils # (Manual) 0.0 10^3/uL (0-0.1) 10/30/22 04:40 Differential Comment MANUAL DIFFERENTIAL 10/30/22 04:40 Platelet Estimate DECREASED (<130,000) (NORMAL) 10/30/22 04:40 Platelet Morphology NORMAL APPEARANCE (NORMAL) 10/26/22 15:52 RBC Morph Micro Appear 1+ ANISOCYTOSIS (NORMAL) 2+ MACROCYTOSIS (NORMAL) 1+ HYPOCHROMASIA (NORMAL) 1+ OVALOCYTES (NORMAL) 10/30/22 04:40 RBC Morph Micro Appear 1+ ANISOCYTOSIS (NORMAL) 2+ MACROCYTOSIS (NORMAL) 1+ HYPOCHROMASIA (NORMAL) 1+ OVALOCYTES (NORMAL) 10/30/22 04:40 RBC Morph Micro Appear 1+ ANISOCYTOSIS (NORMAL) 2+ MACROCYTOSIS (NORMAL) 1+ HYPOCHROMASIA (NORMAL) 1+ OVALOCYTES (NORMAL) 10/30/22 04:40 RBC Morph Micro Appear 1+ ANISOCYTOSIS (NORMAL) 2+ MACROCYTOSIS (NORMAL) 1+ HYPOCHROMASIA (NORMAL) 1+ OVALOCYTES (NORMAL) 10/30/22 04:40 PT 12.9 secs (9.9-12.6) H 10/26/22 15:52 INR 1.2 (0.8-1.2) 10/26/22 15:52 APTT 33.9 secs (24.9-33.3) H 10/26/22 15:52 VBG pH 7.345 (7.31-7.41) 10/31/22 04:40 Ionized Calcium 0.99 mmol/L (1.15-1.33) L 10/31/22 04:40 Sodium 142 mmol/L (135-145) 10/31/22 04:40 Potassium 5.1 mmol/L (3.5-5.0) H 10/31/22 04:40 Chloride 102 mmol/L (101-111) 10/31/22 04:40 Carbon Dioxide 30 mmol/L (21-32) 10/31/22 04:40 Anion Gap 10.0 (6-13) 10/31/22 04:40 BUN 104 mg/dL (6-20) H* 10/31/22 04:40 Creatinine 3.6 mg/dL (0.6-1.2) H 10/31/22 04:40 Estimated GFR (MDRD) 16 (>89) L 10/31/22 04:40 Glucose 115 mg/dL (70-100) H 10/31/22 04:40 POC Whole Bld Glucose 155 mg/dL (70 - 100) H 10/31/22 20:50 Estimat Average Glucose 128 mg/dL (70-100) H 10/29/22 04:25 Hemoglobin A1c % 6.1 % (4.27-6.07) H 10/29/22 04:25 Lactic Acid 0.9 mmol/L (0.5-2.2) 10/28/22 09:11 Calcium 7.5 mg/dL (8.5-10.3) L 10/31/22 04:40 Phosphorus 5.5 mg/dL (2.5-4.6) H 10/31/22 04:40 Magnesium 2.1 mg/dL (1.7-2.8) 10/31/22 04:40 Total Bilirubin 0.5 mg/dL (0.2-1.0) 10/26/22 15:52 AST 37 IU/L (10-42) 10/26/22 15:52 ALT 34 IU/L (10-60) 10/26/22 15:52 Alkaline Phosphatase 154 IU/L (42-121) H 10/26/22 15:52 Troponin I High Sens 297.0 ng/L (2.3-19.7) H* 10/28/22 12:00 B-Natriuretic Peptide 1419 pg/mL (5-100) H 10/26/22 15:52 Total Protein 5.8 g/dL (6.7-8.2) L 10/26/22 15:52 Albumin 2.8 g/dL (3.2-5.5) L 10/26/22 15:52 Globulin 3.0 g/dL (2.1-4.2) 10/26/22 15:52 Albumin/Globulin Ratio 0.9 (1.0-2.2) L 10/26/22 15:52 Lipase 31 U/L (22-51) 10/26/22 15:52 Procalcitonin 0.24 ng/mL (<0.5) 10/28/22 09:11 Nasal Adenovirus (PCR) NOT DETECTED 10/26/22 16:04 Nasal B. parapertussis DNA (PCR) NOT DETECTED 10/26/22 16:04 Nasal Coronavir 229E PCR NOT DETECTED 10/26/22 16:04 Nasal Coronavir HKU1 PCR NOT DETECTED 10/26/22 16:04 Nasal Coronavir NL63 PCR NOT DETECTED 10/26/22 16:04 Nasal Coronavir OC43 PCR NOT DETECTED 10/26/22 16:04 Nasal Enterovir/Rhinovir PCR NOT DETECTED 10/26/22 16:04 Nasal Influenza B PCR NOT DETECTED 10/26/22 16:04 Nasal Influenza A PCR NOT DETECTED 10/26/22 16:04 Nasal Parainfluen 1 PCR NOT DETECTED 10/26/22 16:04 Nasal Parainfluen 2 PCR NOT DETECTED 10/26/22 16:04 Nasal Parainfluen 3 PCR NOT DETECTED 10/26/22 16:04 Nasal Parainfluen 4 PCR NOT DETECTED 10/26/22 16:04 Nasal RSV (PCR) NOT DETECTED 10/26/22 16:04 Nasal Screen MRSA (PCR) NEGATIVE (NEGATIVE) 10/28/22 09:35 Nasal B.pertussis DNA PCR NOT DETECTED 10/26/22 16:04 Nasal C.pneumoniae (PCR) NOT DETECTED 10/26/22 16:04 Kevin Human Metapneumo PCR NOT DETECTED 10/26/22 16:04 Nasal M.pneumoniae (PCR) NOT DETECTED 10/26/22 16:04 Nasal SARS-CoV-2 (PCR) NOT DETECTED 10/26/22 16:04 Stl C. diff Tox B Gene NEGATIVE (NEGATIVE) 10/30/22 12:33 Blood Type A NEGATIVE 10/26/22 15:52 Blood Type Recheck A NEGATIVE 10/26/22 17:05 Antibody Screen NEGATIVE 10/26/22 15:52
[2022-11-01 08:15] LABS: BASOPHILS % (AUTO) 0.7 %; HCT - HEMATOCRIT 26.9 % (42.0-52.0); HGB - HEMOGLOBIN 7.8 g/dL (14.0-18.0); LYMPHOCYTES # (AUTO) 0.1 10^3/uL (1.5-3.5); LYMPHOCYTES % (AUTO) 4.5 %; MEAN CORPUSCULAR HEMOGLOBIN 31.7 pg (27.0-31.0); MEAN CORPUSCULAR VOLUME 109.3 fL (80.0-94.0); MEAN PLATELET VOLUME 11.4 fL (7.4-11.4); MONOCYTES # (AUTO) 0.2 10^3/uL (0.0-1.0); MONOCYTES % (AUTO) 6.2 %; NEUTROPHILS # (AUTO) 2.5 10^3/uL (1.5-6.6); NEUTROPHILS % (AUTO) 86.9 %; PLT - PLATELET COUNT 43 10^3/uL (130-450); RED BLOOD COUNT 2.46 10^6/uL (4.70-6.10); RED CELL DISTRIBUTION WIDTH 17.9 % (12.0-15.0); WHITE BLOOD COUNT 2.9 x10^3/uL (4.8-10.8)
[2022-11-01 08:17] LABS: SLIDE REVIEW? Indicated
[2022-11-01 08:36] LABS: CALCIUM 7.4 mg/dL (8.5-10.3); CREATININE 3.4 mg/dL (0.6-1.2); POTASSIUM 4.6 mmol/L (3.5-5.0)
[2022-11-01 08:51] LABS: PLATELET ESTIMATE, MANUAL DECREASED (<130,000) (NORMAL); PLATELET MORPHOLOGY NORMAL APPEARANCE (NORMAL)
[2022-11-01] MEDS: LIDOCAINE OINTMENT 5% 35.44 GM TUBE TOP SCH ×4 (10:05→21:25)
[2022-11-01] MEDS: SOLIFENACIN SUCCINATE 5 MG TABLET PO SCH (10:05)
[2022-11-01] MEDS: ASPIRIN EC 81 MG TABLET PO SCH (10:06)
[2022-11-01] MEDS: PANTOPRAZOLE 40 MG TABLET PO SCH ×2 (10:06→21:23)
[2022-11-01] MEDS: METOPROLOL TARTRATE 25 MG TABLET PO SCH ×2 (10:07→21:24)
[2022-11-01] MEDS: AMPICILLIN/SULBACTAM 3 GM in SODIUM CHLORIDE 0.9% MINIBAG 100 ML IV SCH ×2 (12:43→23:53)
[2022-11-01] MEDS ORDERED: FUROSEMIDE 20 MG/2 ML VIAL IVP ONE ×2 (17:30→22:00)
[2022-11-01] MEDS: ACETAMINOPHEN 325 MG TABLET PO PRN ×2 (17:34→21:36)
[2022-11-01] MEDS: TAMSULOSIN 0.4 MG CAPSULE PO SCH (21:25)
[2022-11-01] MEDS: ATORVASTATIN 40 MG TABLET PO SCH (21:25)
[2022-11-02] MEDS: PHENAZOPYRIDINE 100 MG TABLET PO SCH ×3 (05:30→20:51)
[2022-11-02] MEDS: FUROSEMIDE 40 MG/4 ML VIAL IVP SCH ×2 (05:30→14:34)
[2022-11-02 05:49] LABS: BASOPHILS % (AUTO) 0.3 %; HCT - HEMATOCRIT 29.6 % (42.0-52.0); HGB - HEMOGLOBIN 8.7 g/dL (14.0-18.0); LYMPHOCYTES % (AUTO) 5.1 %; MEAN CORPUSCULAR HEMOGLOBIN 31.3 pg (27.0-31.0); MEAN CORPUSCULAR HGB CONC 29.4 g/dL (32.0-36.0); MEAN CORPUSCULAR VOLUME 106.5 fL (80.0-94.0); MEAN PLATELET VOLUME 11.3 fL (7.4-11.4); MONOCYTES % (AUTO) 5.5 %; NEUTROPHILS % (AUTO) 87.8 %; PLT - PLATELET COUNT 46 10^3/uL (130-450); RED BLOOD COUNT 2.78 10^6/uL (4.70-6.10); RED CELL DISTRIBUTION WIDTH 19.7 % (12.0-15.0); WHITE BLOOD COUNT 2.9 x10^3/uL (4.8-10.8)
[2022-11-02 05:50] LABS: ABNORMAL LYMPHS % (MANUAL) 0 %
[2022-11-02 06:10] LABS: BAND NEUTROPHILS % (MANUAL) 4 %; BASOPHILS % (MANUAL) 1 %; EOSINOPHILS # (MANUAL) 0.1 10^3/uL (0-0.7); LYMPHOCYTES # (MANUAL) 0.1 10^3/uL (1.5-3.5); LYMPHOCYTES % (MANUAL) 4 %; MONOCYTES # (MANUAL) 0.1 10^3/uL (0.0-1.0); MYELOCYTES % (MANUAL) 1 %; NEUTROPHILS # (MANUAL) 2.5 10^3/uL (1.5-6.6)
[2022-11-02 06:11] LABS: PLATELET ESTIMATE, MANUAL DECREASED (<130,000) (NORMAL); PLATELET MORPHOLOGY NORMAL APPEARANCE (NORMAL); WBC MORPHOLOGY (MULTIPLE) NORMAL APPEARANCE (NORMAL)
[2022-11-02 06:12] LABS: DIFFERENTIAL COMMENT MANUAL DIFFERENTIAL
[2022-11-02 06:14] LABS: CALCIUM 7.4 mg/dL (8.5-10.3); CREATININE 3.3 mg/dL (0.6-1.2); POTASSIUM 4.6 mmol/L (3.5-5.0)
[2022-11-02] MEDS: METOPROLOL TARTRATE 25 MG TABLET PO SCH ×2 (09:14→20:50)
[2022-11-02] MEDS: ASPIRIN EC 81 MG TABLET PO SCH (09:14)
[2022-11-02] MEDS: PANTOPRAZOLE 40 MG TABLET PO SCH ×2 (09:14→20:51)
[2022-11-02] MEDS: SOLIFENACIN SUCCINATE 5 MG TABLET PO SCH (09:14)
[2022-11-02] MEDS: LIDOCAINE OINTMENT 5% 35.44 GM TUBE TOP SCH ×4 (09:18→20:50)
[2022-11-02] MEDS: SODIUM CHLORIDE FLUSH 0.9% 10 ML SYRINGE IVP SCH ×3 (09:18→23:46)
[2022-11-02] MEDS: ACETAMINOPHEN 325 MG TABLET PO PRN ×2 (09:34→20:51)
[2022-11-02] MEDS: ALBUTEROL 6.7 GM INHALER INH PRN (09:58)
[2022-11-02] MEDS: SODIUM CHLORIDE FLUSH 0.9% 10 ML SYRINGE IVP PRN ×3 (12:19→14:34)
[2022-11-02] MEDS: AMPICILLIN/SULBACTAM 3 GM in SODIUM CHLORIDE 0.9% MINIBAG 100 ML IV SCH ×2 (12:19→23:46)
[2022-11-02] MEDS: fentaNYL 100 MCG/2 ML VIAL IVP PRN (12:39)
--- NOTE | 2022-11-02 16:03 | PROVIDER PROGRESS NOTE ---
Assessment/Plan - Problem List (1) Acute and chronic respiratory failure Assessment/Plan: Patient is usually on 2 to 3 L/min oxygen by nasal cannula at home. The cause of hypoxia now is multifactorial: from CHF exacerbation, sleep apnea, possibly COPD exacerbation, and an aspiration pneumonia at admission. He is much less wheezy every day but is needing his home CPAP with O2 bled in. Plan: Continue with supplemental oxygen. His home CPAP was brought in to use. Unfortunately, we cannot use prn iv Morphine for dyspnea, since he has a hive allergy to oxycodone. Would use sl NTG if needed to treat dyspnea. We are treating each underlying respiratory problem He is a DNR/DNI 2. Acute CHF exacerbation Echo was done 10/27. This showed LV enlargement with global hypokinesis, LVEF 35%. Troponins ruled him out for an acute ME. Because of pulm edema with hypotension (BP was 60systolic), he required a Dobutamine drip for 2 days and was in ICU. That improved his hypotension and allowed us to order iv Lasix. Using iv BID Lasix, he has had (-) fluid balance for the past days. Plan: Continuing Lasix 40 mg iv but will decrease to daily from bid. We started Spironolactone and resumed B-adrienne We stopped non-essential fluids (the TKO D5, and iv pushes of NS). We ordered a total fluid restriction in his diet of 1500 cc/day total He got a blood transfusion yesterday and got an additional iv Lasix with that transfusion. Nicole should come out soon, now that he is out of ICU. Unfortunately, we cannot use prn iv Morphine for dyspnea, since he has a hive allergy to oxycodone. Would use sl NTG if needed to treat dyspnea. 3. Cor Pulmonale This was also seen on his Echo done 10/27. It is likely from longstanding sleep apnea and COPD. This means he is very sensitive to preload and afterload and exc essive diuresis will cause hypotension. Plan: As above in #1 and #2 4. Aspiration pneumonia This was seen on admission He received empiric antibiotics which were changed to Flagyl to Zosyn, due to worsening renal function. Cultures have remained neg. Plan: Will give a 7-day total dose then stop. 5. L inguinal hernia He described severe penile pain when he thinks he is urinating, but he has a Rivera in place. The EMERGENCY ROOM NURSE noticed he has a skin excoriation about the size of a quarter, on the ventral side of his penis, near the meatus. No other rash. He also complains of L inguinal pain, worse when coughing. I suspected a hernia. We got a Gen Surg consult on 10/31, which agreed, he has a recurrence of hernia, the CT at admission even shows that the mesh has curled up and is not in position. Plan: We started Vesicare for poss bladder spasms. We ordered oral Pyridium We ordered Lidocaine ointment to the excorated area of penis. We ordered prn Fentanyl, since he has a Oxycodone allergy that caused hives. 6. 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 We tried diuresing him at admission which caused hypotension and he was oliguric. Since admission his creat had worsened now has slt improved. He may have cardiorenal syndrome and/or had ATN from hypotension causing renal hypoperfusion. Plan: Avoid nephrotoxins. Follow BMP daily, especially with adding Spironolactone Continue loop diuretic now that BP improved after being on pressors. 7. Pancytopenia, of unknown cause This patient had a low white count of 3 at presentation, and remains in that range daily. He had low platelets at 50 since admission as well. These are all new since last labs done here in 02/2022. I suspect he has an new underlying hematologic condition, possibly MDS. Plan: Follow CBC daily. Plan to transfuse PRBCs if Hgb less than 8, since he gets such respiratory distress and had hemodynamic instability also. We reviewed his EMR. Will reach out to his PCP for any records regarding a hematologic condition. 8. Melena At admission, he presented complaining of generalized abdominal pain for 2 weeks. He stated he had dark stools for the past 1 week. When he was first admitted, he was so somnolent that he could not give me details about his melena, says he cannot remember. Gen surgery did report that perhaps being on oral Iron, gave him the melana. Gen Surgery was consulted early this admission for a possible EGD. It was cancelled given the hypotension and resp distress and he needed to be put in the ICU. Since then Hgb has been low but relatively stable, until yesterday Hgb was 7.8 Plan: Following CBC daily We changed his empiric IV BID Protonix to oral BID dose, to limit the fluids given to him. No EGD has been done 9. Anemia Hemoglobin was 9 at admission, and had been relatively stable. Yesteray 11/01, his Hgb was 7.8, despite neg fluid balance for several days. Plan: Follow CBC daily He was transfused 1 U of PRBCs, since Hgb was less than 8, in a pt in respiratory distress. He got extra dose of Lasix iv after transfusion. 10. DM He has had a poor appetite for 1 month. Here he was running glucoses of 70- 100. We ordered a diabetic diet, hypoglycemia protocol, and fingerstick checks before meals and at bedtime Due to very low blood glucoses, we cancelled any insulin use as of 10/30. We also had him on D5W at TKO for a day, to prevent hypoglycemia. Plan: D5W stopped in order to decrease fluids because of his CHF We also cancelled his diabetic diet and ordered a regular diet to help prevent hypoglycemia 11. BABATUNDE on CPAP Plan: brought in his CPAP unit, and he is getting O2 bled in. Continue this. He may need to have O2 bled into his CPAP set up for after DCh. 12. Hyperkalemia Improved. It was related to his daily worsening renal function Plan: We gave insulin and D50 to treat very high potassium levels Avoid potassium-containing products. Follow BMP daily 13. Hypersomnolence Improved. According to what the family told me, he has up-and-down in alertness: hypersomnolence with confusion, then gets alert and oriented. The corroborated that this hypersomnolence has been happening for 1 month; she said "he mostly sleeps all day". He also would take a bite of food then has no appetite. His alertness improved when pressors were started for treating hypotension, since he was leikely hypoperfusing his brain, causing his sleepiness and confusion. This patient was so bad at admission then with BP of 60 moved into the ICU that the that he would not survive this hospitalization. Hospice has been contacted. The now sees how much nursing care he needs and does not think she can do it herself. Plan: Continue monitoring his oxygen and supplementing to keep sats over 88-90%, since hypoxia could have made him hypersomnolent and confused. His worsening uremia may also have been causing somnolence and poor appetite. PT and OT have started to work with him Social work is involved with helping the decide where this patient will be discharged to. 14. Coronary artery disease, status post CABG Plan: We restarted his cardiac meds when his BP improved after pressors 15. Proctitis Admitting provider stated "Questionable proctitis" Plan: Will continue management with empiric antibiotics for 7 days. 16. Benign prostatic hypertrophy Will resumed his meds when the BP had risen on pressors. 17. Shock Resolved. He was transferred into ICU when he was pale and not mentating well on 10/28. BP improved on Dobutamine, which he got for 2 days. He likely had cardiogenic shock, given the systolic heart failure, LVEF 35% and dilated LV with global hypokinesis seen on Echo, and since no hemorrhage or sepsis was present. Central line was placed. Troponins were recycled and did not show an acute ME. He was moved out of ICU on 10/31 - Current Meds Current Meds: Current Medications Generic Name Dose Route Start Last Admin Trade Name Freq PRN Reason Stop Dose Admin Acetaminophen 650 mg 10/27/22 02:59 11/02/22 09:34 Acetaminophen 325 Mg Tablet PO 650 mg Q4HR PRN Administration Pain 1 to 4, or Fever Albuterol 1 puffs 10/31/22 09:11 11/02/22 09:58 Albuterol 6.7 Gm Inhaler INH 1 puffs Q4H PRN Administration Shortness of Air/Wheezing Aspirin 81 mg 11/01/22 09:00 11/02/22 09:14 Aspirin Ec 81 Mg Tablet PO 81 mg DAILY DORA Administration Atorvastatin Calcium 40 mg 10/31/22 21:00 11/01/22 21:25 Atorvastatin 40 Mg Tablet PO 40 mg QPM DORA Administration Fentanyl 25 mcg 10/31/22 17:29 11/02/22 12:39 Fentanyl 100 Mcg/2 Ml Vial IVP 25 mcg Q2HR PRN Administration PAIN Furosemide 40 mg 10/28/22 14:00 11/02/22 14:34 Furosemide 40 Mg/4 Ml Vial IVP 40 mg BIDDIURETIC DORA Administration Hydrocortisone 1 applic 10/30/22 10:45 11/01/22 05:16 Hydrocortisone 1% Cream 28 Gm Tube TOP 1 applic BID PRN Administration NEEDED PER PROVIDER ORDERS Ampicillin Sodium/Sulbactam 100 mls @ 200 mls/hr 10/28/22 12:00 11/02/22 12:50 Sodium 3 gm/ Sodium Chloride IV Infused Q12H DORA Infusion Lidocaine 1 applic 10/30/22 15:08 11/02/22 12:20 Lidocaine Ointment 5% 35.44 Gm Tube TOP 1 applic QID DORA Administration Loperamide HCl 2 mg 10/30/22 12:00 10/30/22 14:46 Loperamide 2 Mg Capsule PO 2 mg QID PRN Administration Diarrhea Lorazepam 0.5 mg 10/29/22 11:32 10/30/22 08:35 Lorazepam 2 Mg/Ml Vial IVP 0.5 mg Q2H PRN Administration Anxiety Metoprolol Tartrate 12.5 mg 10/31/22 10:00 11/02/22 09:14 Metoprolol Tartrate 25 Mg Tablet PO 12.5 mg BID DORA Administration Multi-Ingredient Ointment 1 applic 10/30/22 10:47 11/01/22 08:40 Zinc Oxide 20% Oint 30 Gm Tube TOP 1 applic PRN PRN Administration Skin Care Ondansetron HCl 4 mg 10/27/22 02:59 10/29/22 10:47 Ondansetron 4 Mg/2 Ml Vial IVP 4 mg Q6HR PRN Administration Nausea / Vomiting Pantoprazole Sodium 40 mg 10/31/22 21:00 11/02/22 09:14 Pantoprazole 40 Mg Tablet PO 40 mg BID DORA Administration Phenazopyridine HCl 100 mg 10/30/22 16:00 11/02/22 14:35 Phenazopyridine 100 Mg Tablet PO 100 mg TID DORA Administration Sodium Chloride 10 ml 10/27/22 02:59 11/02/22 14:34 Sodium Chloride Flush 0.9% 10 Ml Syringe IVP 10 ml PRN PRN Administration NEEDED PER PROVIDER ORDERS Sodium Chloride 10 ml 10/27/22 09:00 11/02/22 09:18 Sodium Chloride Flush 0.9% 10 Ml Syringe IVP 10 ml 0100,0900,1700 DORA Administration Solifenacin 10 mg 10/31/22 09:00 11/02/22 09:14 Solifenacin Succinate 5 Mg Tablet PO 10 mg DAILY DORA Administration Tamsulosin HCl 0.4 mg 10/31/22 21:00 11/01/22 21:25 Tamsulosin 0.4 Mg Capsule PO 0.4 mg QPM DORA Administration Throat Lozenges 1 lozenge 10/30/22 14:20 10/31/22 00:04 Benzocaine/Menthol Lozenge MM 1 lozenge Q2HR PRN Administration Throat pain - Lab Result Fish Bone Diagrams: 11/02/22 05:40 11/02/22 05:40 - Additional Planning My Orders: My Active Orders 11/03/22 05:00 BMP - BASIC METABOLIC PANEL [CHEM] DAILYLAB CBC - COMP BLD CT W/AUTO DIFF [HEME] DAILYLAB 11/04/22 05:00 BMP - BASIC METABOLIC PANEL [CHEM] DAILYLAB CBC - COMP BLD CT W/AUTO DIFF [HEME] DAILYLAB 11/05/22 05:00 BMP - BASIC METABOLIC PANEL [CHEM] DAILYLAB CBC - COMP BLD CT W/AUTO DIFF [HEME] DAILYLAB Subjective - Subjective Patient Reports: Resting Comfortably, Pain (in L groin, worse with bending at the waist) Objective Vital Signs: Vital Signs - 24 hr 11/01/22 11/01/22 11/01/22 16:24 17:13 17:58 Temperature 37.1 C 36.8 C Heart Rate Heart Rate [ Brachial] Heart Rate [ 63 67 Monitoring electrodes] Respiratory 18 18 Rate Blood Pressure Blood Pressure 123/50 L [Left Brachial artery] Blood Pressure 118/51 L [Right Brachial artery] O2 Saturation 98 95 If not protocol 5 5 5 : Oxygen Flow, liters/minute 11/01/22 11/01/22 11/01/22 18:17 21:00 21:24 Temperature 36.8 C 36.8 C Heart Rate Heart Rate [ 68 73 Brachial] Heart Rate [ Monitoring electrodes] Respiratory 18 18 Rate Blood Pressure 126/55 L Blood Pressure [Left Brachial artery] Blood Pressure 118/45 L 126/74 [Right Brachial artery] O2 Saturation 98 97 If not protocol 5 5 : Oxygen Flow, liters/minute 11/01/22 11/01/22 11/01/22 21:28 21:30 22:00 Temperature 36.9 C 36.9 C Heart Rate Heart Rate [ 74 74 Brachial] Heart Rate [ Monitoring electrodes] Respiratory 18 18 Rate Blood Pressure Blood Pressure [Left Brachial artery] Blood Pressure 126/55 L 126/55 L [Right Brachial artery] O2 Saturation 96 96 If not protocol 5 5 5 : Oxygen Flow, liters/minute 11/02/22 11/02/22 11/02/22 00:37 04:23 07:25 Temperature 36.5 C 36.6 C 6.5 C L Heart Rate Heart Rate [ 75 67 71 Brachial] Heart Rate [ Monitoring electrodes] Respiratory 20 20 20 Rate Blood Pressure Blood Pressure [Left Brachial artery] Blood Pressure 115/64 121/68 110/57 L [Right Brachial artery] O2 Saturation 96 98 92 If not protocol 5 5 5 : Oxygen Flow, liters/minute 11/02/22 11/02/22 11/02/22 09:14 09:59 12:03 Temperature 36.6 C Heart Rate 60 Heart Rate [ 73 Brachial] Heart Rate [ Monitoring electrodes] Respiratory 16 18 Rate Blood Pressure 114/72 Blood Pressure [Left Brachial artery] Blood Pressure 110/71 [Right Brachial artery] O2 Saturation 93 If not protocol 5 : Oxygen Flow, liters/minute Oxygen O2 Source Nasal cannula Oxygen Flow Rate 4 I&O (Last 24 Hrs): Intake and Output Totals x24h 10/31/22 11/01/22 11/02/22 23:59 23:59 23:59 Intake Total 1522 2279 810 Output Total 903 993 850 Balance 619 1286 -40 General: Alert, Oriented x3, Other (Obese, pale) HEENT: Mucous membr. moist/pink, Other (wearing O2 per n.c.) Neck: Other (Cannot evaluate JVP due to obesity and large finnegan) Neuro: Alert, Non Focal, Other (has generalized weakness) Cardiovascular: No murmurs (Distant heart sounds due to obesity) Respiratory: Wheezes (Very fine wheeze in right apex on) Abdomen: Soft, No tenderness, Other (Obese with pannus) Genitourinary: Other (Rivera catheter in place has mild tenderness to palpating the left groin, no mass is felt) Extremities: Other (1+ edema) - Results Results: Laboratory Results WBC 2.9 x10^3/uL (4.8-10.8) L 11/02/22 05:40 RBC 2.78 10^6/uL (4.70-6.10) L 11/02/22 05:40 Hgb 8.7 g/dL (14.0-18.0) L 11/02/22 05:40 Hct 29.6 % (42.0-52.0) L 11/02/22 05:40 MCV 106.5 fL (80.0-94.0) H 11/02/22 05:40 MCH 31.3 pg (27.0-31.0) H 11/02/22 05:40 MCHC 29.4 g/dL (32.0-36.0) L 11/02/22 05:40 RDW 19.7 % (12.0-15.0) H 11/02/22 05:40 Plt Count 46 10^3/uL (130-450) L 11/02/22 05:40 MPV 11.3 fL (7.4-11.4) 11/02/22 05:40 Neut # (Auto) Not Reportable 11/02/22 05:40 Lymph # (Auto) Not Reportable 11/02/22 05:40 [place] # (Auto) Not Reportable 11/02/22 05:40 Eos # (Auto) Not Reportable 11/02/22 05:40 Baso # (Auto) Not Reportable 11/02/22 05:40 Absolute Nucleated RBC Not Reportable 11/02/22 05:40 Total Counted 100 11/02/22 05:40 Band Neuts % (Manual) 4 % (0-10) 11/02/22 05:40 Reactive Lymphs % (Man) 3 % 10/26/22 15:52 Abnorm Lymph % (Manual) 0 % 11/02/22 05:40 Myelocytes % 1 % (-0) H 11/02/22 05:40 Nucleated RBC % Not Reportable 11/02/22 05:40 Neutrophils # (Manual) 2.5 10^3/uL (1.5-6.6) 11/02/22 05:40 Lymphocytes # (Manual) 0.1 10^3/uL (1.5-3.5) L 11/02/22 05:40 Monocytes # (Manual) 0.1 10^3/uL (0.0-1.0) 11/02/22 05:40 Eosinophils # (Manual) 0.1 10^3/uL (0-0.7) 11/02/22 05:40 Basophils # (Manual) 0.0 10^3/uL (0-0.1) 11/02/22 05:40 Differential Comment MANUAL DIFFERENTIAL 11/02/22 05:40 Manual Slide Review Indicated 11/01/22 07:52 WBC Morphology NORMAL APPEARANCE (NORMAL) 11/02/22 05:40 Platelet Estimate DECREASED (<130,000) (NORMAL) 11/02/22 05:40 Platelet Morphology NORMAL APPEARANCE (NORMAL) 11/02/22 05:40 RBC Morph Micro Appear 1+ MACROCYTOSIS (NORMAL) 1+ OVALOCYTES (NORMAL) 2+ ANISOCYTOSIS (NORMAL) 11/02/22 05:40 RBC Morph Micro Appear 1+ MACROCYTOSIS (NORMAL) 1+ OVALOCYTES (NORMAL) 2+ ANISOCYTOSIS (NORMAL) 11/02/22 05:40 RBC Morph Micro Appear 1+ MACROCYTOSIS (NORMAL) 1+ OVALOCYTES (NORMAL) 2+ ANISOCYTOSIS (NORMAL) 11/02/22 05:40 PT 12.9 secs (9.9-12.6) H 10/26/22 15:52 INR 1.2 (0.8-1.2) 10/26/22 15:52 APTT 33.9 secs (24.9-33.3) H 10/26/22 15:52 VBG pH 7.345 (7.31-7.41) 10/31/22 04:40 Ionized Calcium 0.99 mmol/L (1.15-1.33) L 10/31/22 04:40 Sodium 141 mmol/L (135-145) 11/02/22 05:40 Potassium 4.6 mmol/L (3.5-5.0) 11/02/22 05:40 Chloride 102 mmol/L (101-111) 11/02/22 05:40 Carbon Dioxide 31 mmol/L (21-32) 11/02/22 05:40 Anion Gap 8.0 (6-13) 11/02/22 05:40 BUN 100 mg/dL (6-20) H* 11/02/22 05:40 Creatinine 3.3 mg/dL (0.6-1.2) H 11/02/22 05:40 Estimated GFR (MDRD) 18 (>89) L 11/02/22 05:40 Glucose 121 mg/dL (70-100) H 11/02/22 05:40 POC Whole Bld Glucose 167 mg/dL (70 - 100) H 11/02/22 11:38 Estimat Average Glucose 128 mg/dL (70-100) H 10/29/22 04:25 Hemoglobin A1c % 6.1 % (4.27-6.07) H 10/29/22 04:25 Lactic Acid 0.9 mmol/L (0.5-2.2) 10/28/22 09:11 Calcium 7.4 mg/dL (8.5-10.3) L 11/02/22 05:40 Phosphorus 5.5 mg/dL (2.5-4.6) H 10/31/22 04:40 Magnesium 2.1 mg/dL (1.7-2.8) 10/31/22 04:40 Total Bilirubin 0.5 mg/dL (0.2-1.0) 10/26/22 15:52 AST 37 IU/L (10-42) 10/26/22 15:52 ALT 34 IU/L (10-60) 10/26/22 15:52 Alkaline Phosphatase 154 IU/L (42-121) H 10/26/22 15:52 Troponin I High Sens 297.0 ng/L (2.3-19.7) H* 10/28/22 12:00 B-Natriuretic Peptide 1419 pg/mL (5-100) H 10/26/22 15:52 Total Protein 5.8 g/dL (6.7-8.2) L 10/26/22 15:52 Albumin 2.8 g/dL (3.2-5.5) L 10/26/22 15:52 Globulin 3.0 g/dL (2.1-4.2) 10/26/22 15:52 Albumin/Globulin Ratio 0.9 (1.0-2.2) L 10/26/22 15:52 Lipase 31 U/L (22-51) 10/26/22 15:52 Procalcitonin 0.24 ng/mL (<0.5) 10/28/22 09:11 Nasal Adenovirus (PCR) NOT DETECTED 10/26/22 16:04 Nasal B. parapertussis DNA (PCR) NOT DETECTED 10/26/22 16:04 Nasal Coronavir 229E PCR NOT DETECTED 10/26/22 16:04 Nasal Coronavir HKU1 PCR NOT DETECTED 10/26/22 16:04 Nasal Coronavir NL63 PCR NOT DETECTED 10/26/22 16:04 Nasal Coronavir OC43 PCR NOT DETECTED 10/26/22 16:04 Nasal Enterovir/Rhinovir PCR NOT DETECTED 10/26/22 16:04 Nasal Influenza B PCR NOT DETECTED 10/26/22 16:04 Nasal Influenza A PCR NOT DETECTED 10/26/22 16:04 Nasal Parainfluen 1 PCR NOT DETECTED 10/26/22 16:04 Nasal Parainfluen 2 PCR NOT DETECTED 10/26/22 16:04 Nasal Parainfluen 3 PCR NOT DETECTED 10/26/22 16:04 Nasal Parainfluen 4 PCR NOT DETECTED 10/26/22 16:04 Nasal RSV (PCR) NOT DETECTED 10/26/22 16:04 Nasal Screen MRSA (PCR) NEGATIVE (NEGATIVE) 10/28/22 09:35 Nasal B.pertussis DNA PCR NOT DETECTED 10/26/22 16:04 Nasal C.pneumoniae (PCR) NOT DETECTED 10/26/22 16:04 Kevin Human Metapneumo PCR NOT DETECTED 10/26/22 16:04 Nasal M.pneumoniae (PCR) NOT DETECTED 10/26/22 16:04 Nasal SARS-CoV-2 (PCR) NOT DETECTED 10/26/22 16:04 Stl C. diff Tox B Gene NEGATIVE (NEGATIVE) 10/30/22 12:33 Blood Type A NEGATIVE 11/01/22 16:15 Blood Type Recheck A NEGATIVE 10/26/22 17:05 Antibody Screen NEGATIVE 11/01/22 16:15 Crossmatch IS Only See Detail 11/01/22 16:15
[2022-11-02] MEDS: ATORVASTATIN 40 MG TABLET PO SCH (20:49)
[2022-11-02] MEDS: TAMSULOSIN 0.4 MG CAPSULE PO SCH (20:51)
[2022-11-03] MEDS: PHENAZOPYRIDINE 100 MG TABLET PO SCH ×3 (05:58→21:10)
[2022-11-03 06:20] LABS: BASOPHILS % (AUTO) 0.6 %; HCT - HEMATOCRIT 30.8 % (42.0-52.0); LYMPHOCYTES # (AUTO) 0.2 10^3/uL (1.5-3.5); LYMPHOCYTES % (AUTO) 4.9 %; MEAN CORPUSCULAR HEMOGLOBIN 31.3 pg (27.0-31.0); MEAN CORPUSCULAR HGB CONC 29.2 g/dL (32.0-36.0); MEAN CORPUSCULAR VOLUME 106.9 fL (80.0-94.0); MEAN PLATELET VOLUME 11.5 fL (7.4-11.4); MONOCYTES # (AUTO) 0.2 10^3/uL (0.0-1.0); MONOCYTES % (AUTO) 4.9 %; NEUTROPHILS # (AUTO) 2.7 10^3/uL (1.5-6.6); NEUTROPHILS % (AUTO) 87.3 %; PLT - PLATELET COUNT 50 10^3/uL (130-450); RED BLOOD COUNT 2.88 10^6/uL (4.70-6.10); RED CELL DISTRIBUTION WIDTH 19.1 % (12.0-15.0); WHITE BLOOD COUNT 3.1 x10^3/uL (4.8-10.8)
[2022-11-03 06:27] LABS: CALCIUM 7.5 mg/dL (8.5-10.3); CREATININE 3.1 mg/dL (0.6-1.2); POTASSIUM 4.6 mmol/L (3.5-5.0)
[2022-11-03] MEDS: ASPIRIN EC 81 MG TABLET PO SCH (08:19)
[2022-11-03] MEDS: SOLIFENACIN SUCCINATE 5 MG TABLET PO SCH (08:19)
[2022-11-03] MEDS: METOPROLOL TARTRATE 25 MG TABLET PO SCH ×2 (08:19→21:10)
[2022-11-03] MEDS: PANTOPRAZOLE 40 MG TABLET PO SCH ×2 (08:19→21:11)
[2022-11-03] MEDS: SODIUM CHLORIDE FLUSH 0.9% 10 ML SYRINGE IVP SCH ×2 (08:23→17:17)
[2022-11-03] MEDS: LIDOCAINE OINTMENT 5% 35.44 GM TUBE TOP SCH ×4 (08:24→21:11)
[2022-11-03] MEDS ORDERED: FUROSEMIDE 40 MG/4 ML VIAL IVP SCH (09:00)
[2022-11-03] MEDS ORDERED: OXYMETAZOLINE HCL 100 SPRAYS BOTTLE NAS PRN (12:23)
--- NOTE | 2022-11-03 14:51 | PROVIDER PROGRESS NOTE ---
Subjective - Prog Note Date Prog Note Date: 11/03/22 Prog Note Time: 14:48 - Subjective Subjective: The patient seems to have less than stellar cognitive awareness of what is happening. From what I can read in the chart we are discussing hospice with his . She is overwhelmed with caregiver burden. Yesterday she had discussion with discharge planning, edging toward hospice. However the patient himself is thinking he would like some physical therapy. I explained one cannot get both benefits at the same time. Physical therapy describes him is able to stand and pivot. They do certify nursing home facility for rehab if that is the direction he and the would like to go to. He would meet criteria and he appears, right at this momen t, motivated to do so. But even though he is able to stand and pivot, he is exhausted going from the edge of the bed to his chair. In addition to deconditioning and weakness, another limiting complaint is that of a feeling of lower abdominal muscular pulling. It has to do with the mesh and a failed hernia repair. General surgery saw the patient. He has an easily reducible hernia. Nothing to do with this time. In reviewing the chart as the new hospitalist on service, I note that the patient has pancytopenia. He is low across all cell lines. He does have chronic kidney disease and has been diagnosed with iron deficiency anemia and has been given iron infusions in the past by his wet trimmer, Dr. Jay. But there is no note of seeing oncology. Patient himself does not remember seeing hematology. The pancytopenia appears to started only during this admission from the first day onward. Review of the chart shows the CBC to be stable prior to this admission. In looking at his medications he is not on any immune modulating drugs, he is not on any immune suppressing drugs. Current Medications - Current Medications Current Medications: Active Medications Acetaminophen (Acetaminophen 325 Mg Tablet) 650 mg PO Q4HR PRN PRN Reason: Pain 1 to 4, or Fever Last Admin: 11/02/22 20:51 Dose: 650 mg Albuterol (Albuterol 6.7 Gm Inhaler) 1 puffs INH Q4H PRN PRN Reason: Shortness of Air/Wheezing Last Admin: 11/02/22 09:58 Dose: 1 puffs Aspirin (Aspirin Ec 81 Mg Tablet) 81 mg PO DAILY DORA Last Admin: 11/03/22 08:19 Dose: 81 mg Atorvastatin Calcium (Atorvastatin 40 Mg Tablet) 40 mg PO QPM REPLACED BY [facility] Last Admin: 11/02/22 20:49 Dose: 40 mg Fentanyl (Fentanyl 100 Mcg/2 Ml Vial) 25 mcg IVP Q2HR PRN PRN Reason: PAIN Last Admin: 11/02/22 12:39 Dose: 25 mcg Furosemide (Furosemide 40 Mg/4 Ml Vial) 40 mg IVP DAILY REPLACED BY [facility] Last Admin: 11/03/22 08:23 Dose: 40 mg Hydrocortisone (Hydrocortisone 1% Cream 28 Gm Tube) 1 applic TOP BID PRN PRN Reason: NEEDED PER PROVIDER ORDERS Last Admin: 11/01/22 05:16 Dose: 1 applic Ipratropium [place] (Ipratropium 0.2 Mg/Ml Neb) 0.5 mg INH QID PRN PRN Reason: Shortness of Air/Wheezing Lidocaine (Lidocaine Ointment 5% 35.44 Gm Tube) 1 applic TOP QID REPLACED BY [facility] Last Admin: 11/03/22 13:56 Dose: 1 applic Loperamide HCl (Loperamide 2 Mg Capsule) 2 mg PO QID PRN PRN Reason: Diarrhea Last Admin: 10/30/22 14:46 Dose: 2 mg Lorazepam (Lorazepam 2 Mg/Ml Vial) 0.5 mg IVP Q2H PRN PRN Reason: Anxiety Last Admin: 10/30/22 08:35 Dose: 0.5 mg Metoprolol Tartrate (Metoprolol Tartrate 25 Mg Tablet) 12.5 mg PO BID REPLACED BY [facility] Last Admin: 11/03/22 08:19 Dose: 12.5 mg Multi-Ingredient Ointment (Zinc Oxide 20% Oint 30 Gm Tube) 1 applic TOP PRN PRN PRN Reason: Skin Care Last Admin: 11/01/22 08:40 Dose: 1 applic Ondansetron HCl (Ondansetron 4 Mg/2 Ml Vial) 4 mg IVP Q6HR PRN PRN Reason: Nausea / Vomiting Last Admin: 10/29/22 10:47 Dose: 4 mg Oxymetazoline HCl (Oxymetazoline Hcl 100 Sprays Bottle) 2 sprays J LUIS BID PRN PRN Reason: Nasal Congestion Pantoprazole Sodium (Pantoprazole 40 Mg Tablet) 40 mg PO BID REPLACED BY [facility] Last Admin: 11/03/22 08:19 Dose: 40 mg Phenazopyridine HCl (Phenazopyridine 100 Mg Tablet) 100 mg PO TID REPLACED BY [facility] Last Admin: 11/03/22 13:55 Dose: 100 mg Sodium Chloride (Sodium Chloride Flush 0.9% 10 Ml Syringe) 10 ml IVP PRN PRN PRN Reason: NEEDED PER PROVIDER ORDERS Last Admin: 11/02/22 14:34 Dose: 10 ml Sodium Chloride (Sodium Chloride Flush 0.9% 10 Ml Syringe) 10 ml IVP 0100,0900,1700 REPLACED BY [facility] Last Admin: 11/03/22 08:23 Dose: 10 ml Solifenacin (Solifenacin Succinate 5 Mg Tablet) 10 mg PO DAILY REPLACED BY [facility] Last Admin: 11/03/22 08:19 Dose: 10 mg Tamsulosin HCl (Tamsulosin 0.4 Mg Capsule) 0.4 mg PO QPM REPLACED BY [facility] Last Admin: 11/02/22 20:51 Dose: 0.4 mg Throat Lozenges (Benzocaine/Menthol Lozenge) 1 lozenge MM Q2HR PRN PRN Reason: Throat pain Last Admin: 10/31/22 00:04 Dose: 1 lozenge Aspirin [Adult Aspirin Regimen] 81 mg PO DAILY 06/06/20 Insulin Glargine [Lantus Solostar] 10 - 30 units SQ QPM 06/06/20 Losartan [Cozaar] 50 mg PO BID 06/06/20 Tamsulosin [Flomax] 0.4 mg PO DAILY 12/02/20 Insulin Aspart [NovoLOG] 2 - 12 unit SUBQ QDDINNER 03/02/22 Ipratropium [Atrovent] 0.5 mg INH QID PRN 03/02/22 Albuterol [Proventil Hfa] 1 puffs INH Q4H PRN 10/27/22 Atorvastatin Calcium 40 mg PO QPM 10/27/22 Carvedilol [Coreg] 25 mg PO BIDWM 10/27/22 Furosemide [Lasix] 40 mg PO DAILY 10/27/22 Umeclidinium Brm/Vilanterol Tr [Anoro Ellipta 62.5-25 Mcg INH] 1 puffs INH DAILY 10/27/22 Objective - Vital Signs/Intake & Output Vital Signs: Vital Signs x48h Temp Pulse Resp BP BP Pulse Ox O2 Flow Rate 11/03/22 11:05 36.8 C 74 20 122/68 97 2 11/03/22 08:19 143/76 H 11/03/22 07:55 36.5 C 79 18 135/60 H 95 7 11/03/22 07:46 2 Intake & Output: Intake & Output 10/31/22 11/01/22 11/02/22 11/03/22 23:59 23:59 23:59 23:59 Intake Total 1522 2279 1180 830 Output Total 529 941 8564 700 Balance 619 1286 -20 130 - Objective General Appearance: positive: Alert, Other (Oriented. Able to have a conversation with me.) Eyes Bilateral: positive: PERRL, EOMI ENT: positive: No signs of dehydration, Pharyngeal erythema (That is mild. No exudate or thrush), Other (He tells me his nose is plugged up and wants a spray) Neck: positive: No JVD. negative: Stiff neck Respiratory: positive: No respiratory distress. negative: Wheezes, Rales, Rhonchi Cardiovascular: positive: Regular rate & rhythm Abdomen: positive: Non-tender, No organomegaly, Nml bowel sounds, No distention Skin: positive: Warm, Dry Extremities: positive: Full ROM, No pedal edema Neurologic/Psychiatric: positive: Oriented x3 (But easily forgetful.), CN's nml (2-12), Motor nml - Lab Results Fish Bones: 11/03/22 06:10 11/03/22 06:10 Other Labs: Lab Results x24hrs 11/03/22 11/03/22 11/03/22 Range/Units 10:59 07:36 06:10 WBC (4.8-10.8) x10^3/uL RBC (4.70-6.10) 10^6/uL Hgb (14.0-18.0) g/dL Hct (42.0-52.0) % MCV (80.0-94.0) fL MCH (27.0-31.0) pg MCHC (32.0-36.0) g/dL RDW (12.0-15.0) % Plt Count (130-450) 10^3/uL MPV (7.4-11.4) fL Neut # (Auto) (1.5-6.6) 10^3/uL Lymph # (Auto) (1.5-3.5) 10^3/uL [place] # (Auto) (0.0-1.0) 10^3/uL Eos # (Auto) (0.0-0.7) 10^3/uL Baso # (Auto) (0.0-0.1) 10^3/uL Absolute Nucleated RBC x10^3/uL Nucleated RBC % /100WBC Sodium 142 (135-145) mmol/L Potassium 4.6 (3.5-5.0) mmol/L Chloride 102 (101-111) mmol/L Carbon Dioxide 30 (21-32) mmol/L Anion Gap 10.0 (6-13) BUN 94 H* (6-20) mg/dL Creatinine 3.1 H (0.6-1.2) mg/dL Estimated GFR (MDRD) 19 L (>89) Glucose 122 H (70-100) mg/dL POC Whole Bld Glucose 160 H 113 H (70 - 100) mg/dL Calcium 7.5 L (8.5-10.3) mg/dL 11/03/22 11/02/22 11/02/22 Range/Units 06:10 20:28 16:46 WBC 3.1 L (4.8-10.8) x10^3/uL RBC 2.88 L (4.70-6.10) 10^6/uL Hgb 9.0 L (14.0-18.0) g/dL Hct 30.8 L (42.0-52.0) % MCV 106.9 H (80.0-94.0) fL MCH 31.3 H (27.0-31.0) pg MCHC 29.2 L (32.0-36.0) g/dL RDW 19.1 H (12.0-15.0) % Plt Count 50 L (130-450) 10^3/uL MPV 11.5 H (7.4-11.4) fL Neut # (Auto) 2.7 (1.5-6.6) 10^3/uL Lymph # (Auto) 0.2 L (1.5-3.5) 10^3/uL [place] # (Auto) 0.2 (0.0-1.0) 10^3/uL Eos # (Auto) 0.0 (0.0-0.7) 10^3/uL Baso # (Auto) 0.0 (0.0-0.1) 10^3/uL Absolute Nucleated RBC 0.00 x10^3/uL Nucleated RBC % 0.0 /100WBC Sodium (135-145) mmol/L Potassium (3.5-5.0) mmol/L Chloride (101-111) mmol/L Carbon Dioxide (21-32) mmol/L Anion Gap (6-13) BUN (6-20) mg/dL Creatinine (0.6-1.2) mg/dL Estimated GFR (MDRD) (>89) Glucose (70-100) mg/dL POC Whole Bld Glucose 159 H 149 H (70 - 100) mg/dL Calcium (8.5-10.3) mg/dL ABX Reporting Has patient been on IV antibiotics over the past 48 hours?: No Assessment/Plan - Problem List (1) Acute and chronic respiratory failure Impression: Patient is usually on 2 to 3 L/min oxygen by nasal cannula at home. The cause of hypoxia is multifactorial: from CHF exacerbation, sleep apnea, possibly COPD exacerbation, and an aspiration pneumonia at admission. He is much less wheezy every day but is needing his home CPAP with O2 bled in. On today's exam, I am not hearing any wheezing. Plan: Continue with supplemental oxygen. His home CPAP was brought in to use. Unfortunately, we cannot use prn iv Morphine for dyspnea, since he has a hive allergy to oxycodone. Would use sl NTG if needed to treat dyspnea. We are treating each underlying respiratory problem He is a DNR/DNI Plan was for discharge today but a disposition needed to be planned for. Is he going home with home health, is going to a nursing home facility for rehab, or is he going home with hospice. Discharge planning had a conversation with , she is not ready for him to yet, and he is motivated to get PT, so he will go to nursing home facility for acute rehab. 2. Acute CHF exacerbation Echo was done 10/27. This showed LV enlargement with global hypokinesis, LVEF 35%. Troponins ruled him out for an acute [place]. Because of pulm edema with hypotension (BP was 60systolic), he required a Dobutamine drip for 2 days and was in ICU. That improved his hypotension and allowed us to order iv Lasix. Using iv BID Lasix, he has had (-) fluid balance for the past days.Lasix was twice daily. Decrease to daily on November 02. He is on spironolactone and a beta-adrienne. All IV fluids have been stopped. Fluid restriction is 1500 cc, per day. November 02 packed red cell transfusion encounter for with additional Lasix. Unfortunately, we cannot use prn iv Morphine for dyspnea, since he has a hive allergy to oxycodone. Would use sl NTG if needed to treat dyspnea. Plan: Stop IV Lasix and change to p.o. 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 It is likely from longstanding sleep apnea and COPD. This means he is very sensitive to preload and afterload and excessive diuresis will cause hypotension. Plan: As above in #1 and #2 4. Aspiration pneumonia This was seen on admission He received empiric antibiotics which were changed to Flagyl to Zosyn, due to worsening renal function. Cultures have remained neg. He has completed 7 days of abx. 5. L inguinal hernia He described severe penile pain when he thinks he is urinating, but he has a Rivera in place. The INFECTION PREVENTION SPECIALIST noticed he has a skin excoriation about the size of a quarter, on the ventral side of his penis, near the meatus. No other rash. He also complains of L inguinal pain, worse when coughing. I suspected a hernia. We got a Gen Surg consult on 10/31, which agreed, he has a recurrence of hernia, the CT at admission even shows that the mesh has curled up and is not in position. Interventions to help him with this pain of hernia and burning with urination is Vesicare for bladder spasms, Pyridium, lidocaine ointment to the excoriated area of the penis, and fentanyl as needed since he is allergic to oxycodone. This seems to have all helped. 6. Acute on chronic renal failure Patient had a wet trimmer and has CKD. We tried diuresing him at admission which caused hypotension and he was oliguric. Since admission his creat had worsened now has slt improved. He may have cardiorenal syndrome and/or had ATN from hypotension causing renal hypoperfusion. Plan: Avoid nephrotoxins. Follow BMP daily, especially with adding Spironolactone Continue loop diuretic In p.o. form as of tomorrow now that BP improved after being on pressors. 7. Pancytopenia, of unknown cause This patient had a low white count of 3 at presentation, and remains in that ran ge daily. He had low platelets at 50 since admission as well. These are all new since last labs done here in 02/2022. I suspect he has an new underlying hematologic condition, possibly MDS. Plan: Follow CBC daily. He was transfused 1 unit of packed cells on November 02. He will need to follow-up in the outpatient setting by seeing hematology. 8. Melena At admission, he presented complaining of generalized abdominal pain for 2 weeks. He stated he had dark stools for the past 1 week. When he was first admitted, he was so somnolent that he could not give me details about his melena, says he cannot remember. Gen surgery did report that perhaps being on oral Iron, gave him the melana. Gen Surgery was consulted early this admission for a possible EGD. It was cancelled given the hypotension and resp distress and he needed to be put in the ICU. Since then Hgb has been low but relatively stable, until yesterday Hgb was 7.8 Plan: Following CBC daily We changed his empiric IV BID Protonix to oral BID dose, to limit the fluids given to him. No EGD has been done 9. Anemia Hemoglobin was 9 at admission, and had been relatively stable. 11/01, his Hgb was 7.8, despite neg fluid balance for several days. Transfused 1 unit of blood since he was below 8 g of hemoglobin. Currently stable. Plan: Follow CBC daily 10. DM He has had a poor appetite for 1 month. Here he was running glucoses of 70- 100. We ordered a diabetic diet, hypoglycemia protocol, and fingerstick checks before meals and at bedtime Due to very low blood glucoses, we cancelled any insulin use as of 10/30. We also had him on D5W at [facility] for a day, to prevent hypoglycemia. Plan: D5W stopped in order to decrease fluids because of his CHF We also cancelled his diabetic diet and ordered a regular diet to help prevent hypoglycemia 11. BABATUNDE on CPAP Plan: brought in his CPAP unit, and he is getting O2 bled in. Continue this. He may need to have O2 bled into his CPAP set up for after DCh. 12. Hyperkalemia Improved. It was related to his daily worsening renal function Plan: We gave insulin and D50 to treat very high potassium levels Avoid potassium-containing products. Follow BMP daily 13. Hypersomnolence Improved. According to what the family told me, he has up-and-down in alertness: hypersomnolence with confusion, then gets alert and oriented. The corroborated that this hypersomnolence has been happening for 1 month; she said "he mostly sleeps all day". He also would take a bite of food then has no appetite. His alertness improved when pressors were started for treating hypotension, since he was leikely hypoperfusing his brain, causing his sleepiness and confusion. This patient was so bad at admission then with BP of 60 moved into the ICU that the that he would not survive this hospitalization. Hospice has been contacted. The now sees how much nursing care he needs and does not think she can do it herself. Plan: Continue monitoring his oxygen and supplementing to keep sats over 88-90%, since hypoxia could have made him hypersomnolent and confused. His worsening uremia may also have been causing somnolence and poor appetite. PT and OT have started to work with him has decided that he will go to nursing home facility with rehab since that is what the patient wants. 14. Coronary artery disease, status post CABG Plan: We restarted his cardiac meds when his BP improved after pressors 15. Proctitis Admitting provider stated "Questionable proctitis" Plan: s/p empiric antibiotics for 7 days. 16. Benign prostatic hypertrophy On flomax. 17. Shock Resolved. He was transferred into ICU when he was pale and not mentating well on 10/28. BP improved on Dobutamine, which he got for 2 days. He likely had cardiogenic shock, given the systolic heart failure, LVEF 35% and dilated LV with global hypokinesis seen on Echo, and since no hemorrhage or sepsis was present. Central line was placed. Troponins were recycled and did not show an acute [place]. He was moved out of ICU on 10/31
[2022-11-03] MEDS: ACETAMINOPHEN 325 MG TABLET PO PRN (17:17)
[2022-11-03] MEDS: ATORVASTATIN 40 MG TABLET PO SCH (21:12)
[2022-11-03] MEDS: TAMSULOSIN 0.4 MG CAPSULE PO SCH (21:12)
[2022-11-04] MEDS: SODIUM CHLORIDE FLUSH 0.9% 10 ML SYRINGE IVP SCH ×3 (00:33→17:17)
[2022-11-04] MEDS: PHENAZOPYRIDINE 100 MG TABLET PO SCH ×3 (05:02→21:34)
[2022-11-04 05:24] LABS: BASOPHILS % (AUTO) 0.6 %; EOSINOPHILS % (AUTO) 1.3 %; HCT - HEMATOCRIT 31.9 % (42.0-52.0); HGB - HEMOGLOBIN 9.3 g/dL (14.0-18.0); LYMPHOCYTES # (AUTO) 0.2 10^3/uL (1.5-3.5); LYMPHOCYTES % (AUTO) 6.6 %; MEAN CORPUSCULAR HEMOGLOBIN 31.3 pg (27.0-31.0); MEAN CORPUSCULAR HGB CONC 29.2 g/dL (32.0-36.0); MEAN CORPUSCULAR VOLUME 107.4 fL (80.0-94.0); MEAN PLATELET VOLUME 10.5 fL (7.4-11.4); MONOCYTES # (AUTO) 0.2 10^3/uL (0.0-1.0); NEUTROPHILS # (AUTO) 2.7 10^3/uL (1.5-6.6); NEUTROPHILS % (AUTO) 83.9 %; PLT - PLATELET COUNT 61 10^3/uL (130-450); RED BLOOD COUNT 2.97 10^6/uL (4.70-6.10); RED CELL DISTRIBUTION WIDTH 18.5 % (12.0-15.0); WHITE BLOOD COUNT 3.2 x10^3/uL (4.8-10.8)
[2022-11-04 05:34] LABS: CALCIUM 7.5 mg/dL (8.5-10.3); POTASSIUM 4.7 mmol/L (3.5-5.0)
[2022-11-04] MEDS: ONDANSETRON 4 MG/2 ML VIAL IVP PRN (07:03)
[2022-11-04] MEDS: ASPIRIN EC 81 MG TABLET PO SCH (08:26)
[2022-11-04] MEDS: METOPROLOL TARTRATE 25 MG TABLET PO SCH ×2 (08:26→21:34)
[2022-11-04] MEDS: FUROSEMIDE 40 MG TABLET PO SCH (08:28)
[2022-11-04] MEDS: SOLIFENACIN SUCCINATE 5 MG TABLET PO SCH (08:29)
[2022-11-04] MEDS: LIDOCAINE OINTMENT 5% 35.44 GM TUBE TOP SCH ×4 (08:30→21:36)
[2022-11-04] MEDS: PANTOPRAZOLE 40 MG TABLET PO SCH ×2 (08:33→21:35)
[2022-11-04] MEDS: ACETAMINOPHEN 325 MG TABLET PO PRN (17:16)
--- NOTE | 2022-11-04 19:02 | PROVIDER PROGRESS NOTE ---
Progress Note November 04, 2022 6:58 PM No new events. Today he just that he was really tired. He wanted to be left alone and wanted to sleep. Nursing reports that they think he is depressed. I concur. Both times he was muted, withdrawn. Physical therapy is working with him. He needs a hefty 1 person assist to let him use the walker and a gait belt. Gets a little bit short of breath with this. He denies any abdominal pain. Urgency, frequency. Denies any leg pain. When I am examining him he is a low hoarse voice, and he has to clear his throat a few times. I asked him if he is worse than usual and he says this is normal for him. Active Medications Acetaminophen (Acetaminophen 325 Mg Tablet) 650 mg PO Q4HR PRN PRN Reason: Pain 1 to 4, or Fever Last Admin: 11/04/22 17:16 Dose: 650 mg Albuterol (Albuterol 6.7 Gm Inhaler) 1 puffs INH Q4H PRN PRN Reason: Shortness of Air/Wheezing Last Admin: 11/02/22 09:58 Dose: 1 puffs Aspirin (Aspirin Ec 81 Mg Tablet) 81 mg PO DAILY FOR[facility]LY [facility], [facility] Last Admin: 11/04/22 08:26 Dose: 81 mg Atorvastatin Calcium (Atorvastatin 40 Mg Tablet) 40 mg PO QPM FOR[facility], [facility] Last Admin: 11/03/22 21:12 Dose: 40 mg Fentanyl (Fentanyl 100 Mcg/2 Ml Vial) 25 mcg IVP Q2HR PRN PRN Reason: PAIN Last Admin: 11/02/22 12:39 Dose: 25 mcg Furosemide (Furosemide 40 Mg Tablet) 40 mg PO DAILY FOR[facility], [facility] Last Admin: 11/04/22 08:28 Dose: 40 mg Hydrocortisone (Hydrocortisone 1% Cream 28 Gm Tube) 1 applic TOP BID PRN PRN Reason: NEEDED PER PROVIDER ORDERS Last Admin: 11/01/22 05:16 Dose: 1 applic Ipratropium [place] (Ipratropium 0.2 Mg/Ml Neb) 0.5 mg INH QID PRN PRN Reason: Shortness of Air/Wheezing Lidocaine (Lidocaine Ointment 5% 35.44 Gm Tube) 1 applic TOP QID FOR[facility], [facility] Last Admin: 11/04/22 17:17 Dose: 1 applic Loperamide HCl (Loperamide 2 Mg Capsule) 2 mg PO QID PRN PRN Reason: Diarrhea Last Admin: 10/30/22 14:46 Dose: 2 mg Lorazepam (Lorazepam 2 Mg/Ml Vial) 0.5 mg IVP Q2H PRN PRN Reason: Anxiety Last Admin: 10/30/22 08:35 Dose: 0.5 mg Metoprolol Tartrate (Metoprolol Tartrate 25 Mg Tablet) 12.5 mg PO BID [facility] Last Admin: 11/04/22 08:26 Dose: 12.5 mg Multi-Ingredient Ointment (Zinc Oxide 20% Oint 30 Gm Tube) 1 applic TOP PRN PRN PRN Reason: Skin Care Last Admin: 11/01/22 08:40 Dose: 1 applic Ondansetron HCl (Ondansetron 4 Mg/2 Ml Vial) 4 mg IVP Q6HR PRN PRN Reason: Nausea / Vomiting Last Admin: 11/04/22 07:03 Dose: 4 mg Oxymetazoline HCl (Oxymetazoline Hcl 100 Sprays Bottle) 2 sprays J LUIS BID PRN PRN Reason: Nasal Congestion Pantoprazole Sodium (Pantoprazole 40 Mg Tablet) 40 mg PO BID FOR[facility], [facility] Last Admin: 11/04/22 08:33 Dose: 40 mg Phenazopyridine HCl (Phenazopyridine 100 Mg Tablet) 100 mg PO TID FOR[facility], [facility] Last Admin: 11/04/22 14:41 Dose: 100 mg Sodium Chloride (Sodium Chloride Flush 0.9% 10 Ml Syringe) 10 ml IVP PRN PRN PRN Reason: NEEDED PER PROVIDER ORDERS Last Admin: 11/02/22 14:34 Dose: 10 ml Sodium Chloride (Sodium Chloride Flush 0.9% 10 Ml Syringe) 10 ml IVP 0100,0900,1700 [facility], [facility] Last Admin: 11/04/22 17:17 Dose: 10 ml Solifenacin (Solifenacin Succinate 5 Mg Tablet) 10 mg PO DAILY FOR[facility] Last Admin: 11/04/22 08:29 Dose: 10 mg Tamsulosin HCl (Tamsulosin 0.4 Mg Capsule) 0.4 mg PO QPM [facility] Last Admin: 11/03/22 21:12 Dose: 0.4 mg Throat Lozenges (Benzocaine/Menthol Lozenge) 1 lozenge MM Q2HR PRN PRN Reason: Throat pain Last Admin: 10/31/22 00:04 Dose: 1 lozenge Aspirin [Adult Aspirin Regimen] 81 mg PO DAILY 06/06/20 Insulin Glargine [Lantus Solostar] 10 - 30 units SQ QPM 06/06/20 Losartan [Cozaar] 50 mg PO BID 06/06/20 Tamsulosin [Flomax] 0.4 mg PO DAILY 12/02/20 Insulin Aspart [NovoLOG] 2 - 12 unit SUBQ QDDINNER 03/02/22 Ipratropium [Atrovent] 0.5 mg INH QID PRN 03/02/22 Albuterol [Proventil Hfa] 1 puffs INH Q4H PRN 10/27/22 Atorvastatin Calcium 40 mg PO QPM 10/27/22 Carvedilol [Coreg] 25 mg PO BIDWM 10/27/22 Furosemide [Lasix] 40 mg PO DAILY 10/27/22 Umeclidinium Brm/Vilanterol Tr [Anoro Ellipta 62.5-25 Mcg INH] 1 puffs INH DAILY 10/27/22 Temperature is 36.4. Heart rate 75. Blood pressure 117/55. Respirations very between 20-24. On 3 L nasal cannula he is saturating at 96%. 5 feet 7 inches tall, 102.5 kg. Withdrawn, fatigued appearing elderly gentleman with a finnegan, low hoarse voice. No respiratory distress. Speech is normal. Oriented to place, person. Neck is supple. No JVD. Lungs have coarse upper airway sounds but no crackles, when trying to sit him up he gets dyspneic very easily. He does not like to lay flat. Regular rate and rhythm Abdomen is bloated, soft, nontender. His last bowel movement was today. Rivera catheter in place. Mild edema of his legs. Mildly deaf, but follows my commands. I asked him to raise his right arm, touch his finger to his nose, lift his legs and he follows commands well. He was not seen by physical therapy. When they went into the room the patient, patient's was having a care conference with social work. On the basis of the November 02 physical therapy eval, they are recommending SNF for PT. Assessment/Plan - Problem List (1) Acute and chronic respiratory failure Impression: Patient is usually on 2 to 3 L/min oxygen by nasal cannula at home. The cause of hypoxia is multifactorial: from CHF exacerbation, sleep apnea, possibly COPD exacerbation, and an aspiration pneumonia at admission. He is much less wheezy every day but is needing his home CPAP with O2 bled in. I met him on November 03 and his lung exam is stable from yesterday to today. No wheezing. Occasional cough productive of phlegm. Plan: Continue with supplemental oxygen. His home CPAP was brought in to use. Unfortunately, we cannot use prn iv Morphine for dyspnea, since he has a hive allergy to oxycodone. Would use sl NTG if needed to treat dyspnea. We are treating each underlying respiratory problem He is a DNR/DNI Final disposition was obtained. We offered him going home with home health, going to a halfway facility for rehab, or going home with hospice because he had looks so badly earlier this week. After conversation, he and his decided he would like to go to halfway facility for rehab. We have been trying to choice him yesterday and today and we have not heard from any halfway facility. We will continue to await their response for tomorrow. 2. Acute CHF exacerbation Echo was done 10/27. This showed LV enlargement with global hypokinesis, LVEF 35%. Troponins ruled him out for an acute VA. Because of pulm edema with hypotension (BP was 60systolic), he required a Dobutamine drip for 2 days and was in ICU. That improved his hypotension and allowed us to order iv Lasix. Using iv BID Lasix, he has had (-) fluid balance for the past days.Lasix was twice daily. Decrease to daily on November 02. He is on spironolactone and a beta-adrienne. All IV fluids have been stopped. Fluid restriction is 1500 cc, per day. November 02 packed red cell transfusion encounter for with additional Lasix. Unfortunately, we cannot use prn iv Morphine for dyspnea, since he has a hive allergy to oxycodone. Would use sl NTG if needed to treat dyspnea. Plan: I stopped IV Lasix November 03. Changing to p.o. today. He is on Lopressor 12.5 twice daily. add lisinopril 2.5 mg tomorrow. 3. Cor Pulmonale This was also seen on his Echo done 10/27. It is likely from longstanding sleep apnea and COPD. This means he is very sensitive to preload and afterload and excessive diuresis will cause hypotension. Plan: As above in #1 and #2 4. Aspiration pneumonia This was seen on admission He received empiric antibiotics which were changed to Flagyl to Zosyn, due to worsening renal function. Cultures have remained neg. He has completed 7 days of abx. 5. L inguinal hernia He described severe penile pain when he thinks he is urinating, but he has a Rivera in place. The FINANCIAL AID ADVISOR noticed he has a skin excoriation about the size of a quarter, on the ventral side of his penis, near the meatus. No other rash. He also complains of L inguinal pain, worse when coughing. I suspected a hernia. We got a Gen Surg consult on 10/31, which agreed, he has a recurrence of hernia, the CT at admission even shows that the mesh has curled up and is not in position. Interventions to help him with this pain of hernia and burning with urination is Vesicare for bladder spasms, Pyridium, lidocaine ointment to the excoriated area of the penis, and fentanyl as needed since he is allergic to oxycodone. This seems to have all helped. 6. 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 We tried diuresing him at admission which caused hypotension and he was oliguric. Since admission his creat had worsened now has slt improved. He may have cardiorenal syndrome and/or had ATN from hypotension causing renal hypoperfusion. Plan: Avoid nephrotoxins. Follow BMP daily, especially when we add Spironolactone , right now only on lasix for diuresis I will watch his renal failure in light of the fact of me starting lisinopril tomorrow 7. Pancytopenia, of unknown cause This patient had a low white count of 3 at presentation, and remains in that range daily. He had low platelets at 50 since admission as well. These are all new since last labs done here in 02/2022. I suspect he has an new underlying hematologic condition, possibly MDS. Plan: Follow CBC daily. He was transfused 1 unit of packed cells on November 02. He will need to follow-up in the outpatient setting by seeing hematology. 8. Melena At admission, he presented complaining of generalized abdominal pain for 2 weeks. He stated he had dark stools for the past 1 week. When he was first admitted, he was so somnolent that he could not give me details about his melena, says he cannot remember. Gen surgery did report that perhaps being on oral Iron, gave him the melana. Gen Surgery was consulted early this admission for a possible EGD. It was cancelled given the hypotension and resp distress and he needed to be put in the ICU. Since then Hgb has been low but relatively stable, until yesterday Hgb was 7.8 Plan: Following CBC daily We changed his empiric IV BID Protonix to oral BID dose, to limit the fluids given to him. No EGD has been done 9. Anemia Hemoglobin was 9 at admission, and had been relatively stable. 11/01, his Hgb was 7.8, despite neg fluid balance for several days. Transfused 1 unit of blood since he was below 8 g of hemoglobin. Currently stable. Plan: Follow CBC daily 10. DM He has had a poor appetite for 1 month. Here he was running glucoses of 70- 100. We ordered a diabetic diet, hypoglycemia protocol, and fingerstick checks before meals and at bedtime Due to very low blood glucoses, we cancelled any insulin use as of 10/30. We also had him on D5W at TKO for a day, to prevent hypoglycemia. D5W stopped in order to decrease fluids because of his CHF We also cancelled his diabetic diet and ordered a regular diet to help prevent hypoglycemia Glucose was as high as 167 on the . 206 on the . Today he has been 126, 199, 165. Plan: If he is consistently above 200 we may resume some form of diabetic control. But for right now no changes 11. BABATUNDE on CPAP Plan: brought in his CPAP unit, and he is getting O2 bled in. Continue this. He may need to have O2 bled into his CPAP set up for after [facility]. 12. Hyperkalemia Improved. It was related to his daily worsening renal function Plan: We gave insulin and D50 to treat very high potassium levels Avoid potassium-containing products. Follow BMP daily 13. Hypersomnolence Resolved. According to what the family told me, he has up-and-down in alertness: hypersomnolence with confusion, then gets alert and oriented. The corroborated that this hypersomnolence has been happening for 1 month; she said "he mostly sleeps all day". He also would take a bite of food then has no appetite. His alertness improved when pressors were started for treating hypotension, since he was leikely hypoperfusing his brain, causing his sleepiness and confusion. This patient was so bad at admission then with BP of 60 moved into the ICU that the that he would not survive this hospitalization. Hospice has been contacted. The now sees how much nursing care he needs and does not think she can do it herself. Plan: Continue oxygen to maintain his O2 sats, continue to work with PT, and avoid sedate of agents. 14. Coronary artery disease, status post CABG Plan: We restarted his cardiac meds when his BP improved after pressors 15. Proctitis Admitting provider stated "Questionable proctitis" Plan: s/p empiric antibiotics for 7 days. 16. Benign prostatic hypertrophy On flomax. 17. Shock Resolved. He was transferred into ICU when he was pale and not mentating well on 10/28. BP improved on Dobutamine, which he got for 2 days. He likely had cardiogenic shock, given the systolic heart failure, LVEF 35% and dilated LV with global hypokinesis seen on Echo, and since no hemorrhage or sepsis was present. Central line was placed. Troponins were recycled and did not show an acute VA. He was moved out of ICU on 10/31
[2022-11-04] MEDS: TAMSULOSIN 0.4 MG CAPSULE PO SCH (21:34)
[2022-11-04] MEDS: ATORVASTATIN 40 MG TABLET PO SCH (21:35)
[2022-11-04] MEDS: fentaNYL 100 MCG/2 ML VIAL IVP PRN (21:36)
[2022-11-05] MEDS: SODIUM CHLORIDE FLUSH 0.9% 10 ML SYRINGE IVP SCH ×2 (01:00→08:20)
[2022-11-05] MEDS: PHENAZOPYRIDINE 100 MG TABLET PO SCH (06:06)
[2022-11-05 06:22] LABS: BASOPHILS % (AUTO) 0.3 %; EOSINOPHILS % (AUTO) 0.3 %; HCT - HEMATOCRIT 32.5 % (42.0-52.0); HGB - HEMOGLOBIN 9.2 g/dL (14.0-18.0); LYMPHOCYTES # (AUTO) 0.2 10^3/uL (1.5-3.5); LYMPHOCYTES % (AUTO) 4.7 %; MEAN CORPUSCULAR HEMOGLOBIN 31.3 pg (27.0-31.0); MEAN CORPUSCULAR HGB CONC 28.3 g/dL (32.0-36.0); MEAN CORPUSCULAR VOLUME 110.5 fL (80.0-94.0); MEAN PLATELET VOLUME 10.4 fL (7.4-11.4); MONOCYTES # (AUTO) 0.2 10^3/uL (0.0-1.0); MONOCYTES % (AUTO) 5.3 %; NEUTROPHILS # (AUTO) 2.7 10^3/uL (1.5-6.6); NEUTROPHILS % (AUTO) 84.4 %; PLT - PLATELET COUNT 64 10^3/uL (130-450); RED BLOOD COUNT 2.94 10^6/uL (4.70-6.10); RED CELL DISTRIBUTION WIDTH 18.1 % (12.0-15.0); WHITE BLOOD COUNT 3.2 x10^3/uL (4.8-10.8)
[2022-11-05 06:23] LABS: SLIDE REVIEW? Indicated
[2022-11-05 06:28] LABS: CALCIUM 7.5 mg/dL (8.5-10.3); CREATININE 2.9 mg/dL (0.6-1.2); POTASSIUM 4.9 mmol/L (3.5-5.0)
[2022-11-05 06:36] LABS: PLATELET ESTIMATE, MANUAL DECREASED (<130,000) (NORMAL); PLATELET MORPHOLOGY NORMAL APPEARANCE (NORMAL); WBC MORPHOLOGY (MULTIPLE) NORMAL APPEARANCE (NORMAL)
[2022-11-05] MEDS: PANTOPRAZOLE 40 MG TABLET PO SCH (08:14)
[2022-11-05] MEDS: METOPROLOL TARTRATE 25 MG TABLET PO SCH (08:15)
[2022-11-05] MEDS: SOLIFENACIN SUCCINATE 5 MG TABLET PO SCH ×2 (08:18→08:20)
[2022-11-05] MEDS: ASPIRIN EC 81 MG TABLET PO SCH (08:19)
[2022-11-05] MEDS: FUROSEMIDE 40 MG TABLET PO SCH (08:19)
[2022-11-05] MEDS: LIDOCAINE OINTMENT 5% 35.44 GM TUBE TOP SCH ×2 (08:21→13:25)
[2022-11-05] MEDS ORDERED: lisinopriL 5 MG TABLET PO SCH (09:00)
--- NOTE | 2022-11-05 10:28 | Discharge Plan ---
"Discharge Plan for SNF / [facility] - Discharge Plan And Transition Orders Problem Reviewed?: Yes Disposition: 03 SNF DC/Xfer Condition: Fair Allergies and Adverse Reactions: Allergies Allergy/AdvReac Type Severity Reaction Status Date / Time pneumococcal vaccine Allergy Anaphylaxis Verified 10/26/22 15:22 oxycodone [From Percodan] AdvReac Hives Verified 10/26/22 15:22 Health Concerns: 82-year-old man who has a history of CHF and COPD that presented to the emergency room with complaints of shortness of breath. He is on home oxygen of 2 to 3 L by nasal cannula. In addition to the shortness of breath which was getting worse over the week, he had abdominal pain with melena for a few days. He takes aspirin. O2 sat at home was 70% on his 3 L. Admitted with acute on chronic hypoxic respiratory failure with acute combined systolic and diastolic congestive heart failure. COPD exacerbation. GI bleed. Witnessed aspiration. And acute on chronic renal failure with hyperkalemia. He is anemia was 9 g of hemoglobin. He was treated for the COPD exacerbation and CHF and an echocardiogram done for elevated troponins identified severe left ventricular dysfunction. As such general surgery declined to do an EGD. EGD can be done in the outpatient setting. Hemoglobin was as low as 7.8 and he received 1 unit of blood. That bumped him up to 8.7. He was 9.2 g of hemoglobin at discharge. We are treating him empirically as possible upper GI bleed with proton pump inhibitor, and sucralfate. He is not to be on any nonsteroidals. He is COPD and CHF gradually stabilized. He has BPH with retention and is on Vesicare and Flomax. All of this resulted in severe deconditioning, and he needs physical therapy. Advance care planning was discussed. Options include possible hospice with transition to home. But he is starting to feel so much better he did not want to do that. cannot take care of him at this time because of his increased needs. As such they are hoping that he can get physical therapy, regain some of his mobility to be able to go from supine to sitting and standing for a few steps. Then he can go home. Plan of Treatment: Physical therapy and Occupational Therapy to improve endurance, mobility, and improve self-sufficiency with regards to activities of daily living His renal function has worsened while here. Diuresis plus hypotensive shock. It is gradually getting better and please monitor on a weekly basis. Pancytopenia is been present for years, no work-up in the outpatient setting. He has both iron deficiency anemia and borderline B12 deficiency. While here, we ended up stopping any glucose checks and insulin because of hypoglycemia. As his status is improved, and is eating more, his glucose is slightly coming up. Monitor to see if he needs resumption of Lantus and NovoLog. When he came into the hospital he was on upwards of 30 units of Lantus, and sliding scale NovoLog. He has not had those for several days Care Goals: To return to home. When he returns to home, if he has recurrence of his lack of functional mobility, they may revisit hospice Assessment: Patient has cognitive deficits. While these conversations to discuss his plans were held with him in person, was always updated to help in these decisions - SNF / RETIREMENT Transition Orders Admit to (Facility): [facility] Under the care of (Name): Curtis Hollis Discharge Diagnosis: 1. Acute on chronic respiratory failure with hypoxia 2. Acute on chronic systolic heart failure 3. Cardiogenic shock requiring dobutamine 4. Aspiration pneumonia 5. Hypersomnolence 6. Acute on chronic renal failure 7. Hyperkalemia 8. Pancytopenia of unknown cause 9. Melena 10. Iron deficiency anemia 12. Type 2 diabetes mellitus, controlled 13. Benign prostatic hypertrophy Medicare Certification Statement: I certify that Post Hospital care home care is medically necessary on a continuing basis for any of the conditions for which she/he is receiving care during hospitalization. Notify PCP of admission and forward orders to primary provider for signature. Weight on admission and: Weekly Other Notification Orders: Call PCP immediately if patient develops dyspnea, chest pain/tightness or edema. House Bowel Program: Yes Additional Bowel Program Orders: If no BM after 2 days, nurse may give M.O.M. 30ml PO PRN and/or ducolax Supp 1 TN and/or VALARIE 250mg P.O., and/or senna 1-2 tabs PO. On day 3 nurse may give repeat above order until residents constipation is resolved. Annual Influenza Vaccine (between Jul 16 and February 12): Yes Two-step PPD per [facility] [id number] or approved exception documents: Yes Treatments & Other Orders: DuoNeb via nebulizer 4 times daily as needed Oxygen Orders: 2 L nasal cannula to keep O2 sats greater than 92% Lab Tests or X-ray Orders: CBC and CMP weekly. Baseline creatinine is 1.8-1.9. Since being in the hospital he has been as high as 4.1. Down to 2.9 on the day of discharge. Pancytopenia that has been present for years. Never worked up in the outpatient setting. White cell count 3.2, hemoglobin 9.2, hematocrit 32.5, platelets 64 on the day of discharge. Medication Orders: PLEASE REFER TO THE DISCHARGE MEDICATION LIST. Insulin Orders?: No - Medications New Prescriptions: Ipratropium/Albuterol [Duoneb] 3 ml INH TID #1 ml - Diet Type: No added salt Texture: Regular Liquids: Thin May have monthly special meal: Yes - Therapies | Activity Therapy: Evaluation | Treat if indicated: Speech, PT, OT Rehabilitation Potential: Return to independent living Activity: Activity as Tolerated Assistance Devices: Walker"
[2022-11-05 13:25] VITALS: BP 137/62
--- NOTE | 2022-11-05 17:27 | DISCHARGE SUMMARY ---
"Discharge Summary Admit Date: 10/27/22 Discharge Date: 11/05/22 Discharging Provider: Senia Meek MD Primary Care Provider: unknown Code Status: Do Not Attempt Resuscitation Condition at Discharge: Fair Discharge Disposition: 03 SNF DC/Xfer - DIAGNOSES Discharge Diagnoses with Status of Each Condition: 1. Acute on chronic respiratory failure with hypoxia 2. Acute on chronic systolic heart failure 3. Cardiogenic shock requiring dobutamine 4. Aspiration pneumonia 5. Hypersomnolence 6. Acute on chronic renal failure 7. Hyperkalemia 8. Pancytopenia of unknown cause 9. Melena 10. Iron deficiency anemia 12. Type 2 diabetes mellitus, controlled 13. Benign prostatic hypertrophy 14. Left inguinal hernia pain 15. Obstructive sleep apnea on CPAP 16. Status post aortocoronary bypass graft 17. Proctitis - HPI History of Present Illness: History of present illness This is 82-year-old male who presented to emergency room with complaint of shortness of breath. Patient history of CHF and COPD. Patient is usually on 2 to 3 days oxygen by nasal cannula. Patient is having shortness of breath since last 1 week. He also complains of abdominal pain with melena since last few days. Patient is on aspirin at home. Patient received DuoNeb treatment by EMS. His oxygen saturation was in 70s on his home oxygen. Currently patient is on 6 to 8 L oxygen by nasal cannula. Patient denies any chest pain. There is no other family member present at the bedside. Patient denies any vomiting. He feels dizzy. Denies any diarrhea or dysuria. Patient received 80 mg of IV Lasix in the emergency room. Patient also received 40 mg of IV Protonix in the emergency room. Patient did not have much urine output since then. Review of system 14 point review of system was done. It was negative except as per history of present illness Past medical history Congestive heart failure COPD Chronic hypoxic respiratory failure Coronary artery disease status post CABG Diabetes mellitus type 2 Chronic kidney disease Chronic back pain Hypertension Dyslipidemia Benign prostatic hypertrophy Past surgical history Hiatal hernia repair and CABG and knee replacement - CONSULTS | PROCEDURES Consultations: General surgery - HOSPITAL COURSE Hospital Course: 82-year-old man who has a history of CHF and COPD that presented to the em ergency room with complaints of shortness of breath. He is on home oxygen of 2 to 3 L by nasal cannula. In addition to the shortness of breath which was getting worse over the week, he had abdominal pain with melena for a few days. He takes aspirin. O2 sat at home was 70% on his 3 L. Admitted with acute on chronic hypoxic respiratory failure with acute combined systolic and diastolic congestive heart failure. COPD exacerbation. GI bleed. Witnessed aspiration. And acute on chronic renal failure with hyperkalemia. He is anemia was 9 g of hemoglobin. He was treated for the COPD exacerbation and CHF and an echocardiogram done for elevated troponins identified severe left ventricular dysfunction. As such general surgery declined to do an EGD. General surgery also saw him for his left inguinal hernia pain. He says that the mesh from a previous surgery has rolled up a little and causing him discomfort. There is not much he is going to do about that. EGD can be done in the outpat ient setting. Hemoglobin was as low as 7.8 and he received 1 unit of blood. That bumped him up to 8.7. He was 9.2 g of hemoglobin at discharge. We are treating him empirically as possible upper GI bleed with proton pump inhibitor, and sucralfate. He is not to be on any nonsteroidals. He is COPD and CHF gradually stabilized. He has BPH with retention and is on Vesicare and Flomax. All of this resulted in severe deconditioning, and he needs physical therapy. Advance care planning was discussed. Options include possible hospice with transition to home His hope was to return to home. While he was here, the especially when he was in the ICU getting dobutamine.. But he is starting to feel so much better he did not want to do that. cannot take care of him at this time because of his increased needs. As such they are hoping that he can get physical therapy, regain some of his mobility to be able to go from supine to sitting and standing for a few steps. Then he can go home. His renal function has worsened while here. Diuresis plus hypotensive shock That required a short stay in the ICU requiring dobutamine. It is gradually getting better and I am asking SNF to monitor on a weekly basis. Pancytopenia is been present for years, no work-up has been done in the outpatient setting. He has both iron deficiency anemia and borderline B12 deficiency. While here, we ended up stopping any glucose checks and insulin because of hypoglycemia. As his status is improved, and is eating more, his glucose is slightly coming up. Monitor to see if he needs resumption of Lantus and NovoLog. When he came into the hospital he was on upwards of 30 units of Lantus, and sliding scale NovoLog. He has not had those for several days At discharge, temperature is 36.5. Heart rate 74. Blood pressure 137/62. Respirations 22. He is saturating 97% on 2 L. He is alert. Oriented to self and to place. He is not happy about going to the prison but understands he has to do it. Neck is supple with shotty adenopathy. Diminished breath sounds at the bases and some tachypnea when he tries to get up and help him with the gurney. Regular rate and rhythm. Slightly barrel chest. The abdomen is soft, nontender. Normal bowel sounds. Rivera is in place and he has pain at the tip of his penis where he has had an abrasion there. We are using lidocaine. Last bowel movement was the . He has mild nonpitting edema. Some scrotal edema. He has a Rivera in place for severe urinary retention due to prostatic enlargement. Greater than 30 minutes was spent correlating discharge - ALLERGIES Allergies/Adverse Reactions: Allergies Allergy/AdvReac Type Severity Reaction Status Date / Time pneumococcal vaccine Allergy Anaphylaxis Verified 10/26/22 15:22 oxycodone [From Percodan] AdvReac Hives Verified 10/26/22 15:22 - MEDICATIONS Home Medications: Ambulatory Orders Medication Instructions Recorded Confirmed Acetaminophen [Tylenol] 650 mg PO Q4HR PRN tab 11/05/22 Atorvastatin Calcium 40 mg PO QPM #0 11/05/22 10/27/22 Furosemide [Lasix] 40 mg PO DAILY tab 11/05/22 Furosemide [Lasix] 40 mg PO DAILY #0 11/05/22 10/27/22 Ipratropium/Albuterol [Duoneb] 3 ml INH TID #1 ml 11/05/22 Lidocaine Ointment 5% [Xylocaine 1 applic TOP QID each 11/05/22 Ointment 5%] Metoprolol Tartrate [Lopressor] 12.5 mg PO BID tab 11/05/22 Oxymetazoline HCl [Afrin] 2 sprays J LUIS BID PRN each 11/05/22 Pantoprazole [Protonix] 40 mg PO BID tab 11/05/22 Solifenacin Succinate [Vesicare] 10 mg PO DAILY tab 11/05/22 Tamsulosin [Flomax] 0.4 mg PO DAILY #0 11/05/22 10/27/22 Umeclidinium Brm/Vilanterol Tr 1 puffs INH DAILY #0 11/05/22 10/27/22 [Anoro Ellipta 62.5-25 Mcg INH] Zinc Oxide 20% Oint [Zinc Oxide] 1 applic TOP PRN PRN each 11/05/22 lisinopriL [Zestril] 2.5 mg PO DAILY tab 11/05/22 - LABS Result Diagrams: 11/05/22 06:11 11/05/22 06:11"
== END 2022-11-05 13:51 | DRG 291 ==
LOC: ED 15:10 → MS2 10-27 02:59 → ICU 10-28 09:26 → MS2 11-01 08:58
PROVIDERS: ADMIT Internal Medicine; ATTEND Specialist
PROC: 02HV33Z Insertion of Infusion Device into Superior Vena Cava, Percutaneous Approach (ICD-10-PCS; principal; 2022-10-28)
PROC: 30233N1 Transfusion of Nonautologous Red Blood Cells into Peripheral Vein, Percutaneous Approach (ICD-10-PCS; 2022-11-01)
DX: I13.0 Hypertensive heart and chronic kidney disease with heart failure and stage 1 through stage 4 chronic kidney disease, or unspecified chronic kidney disease (principal); I50.9 Heart failure, unspecified; J44.9 Chronic obstructive pulmonary disease, unspecified; R10.84 Generalized abdominal pain; F03.90 Unspecified dementia, unspecified severity, without behavioral disturbance, psychotic disturbance, mood disturbance, and anxiety; I50.23 Acute on chronic systolic (congestive) heart failure; J96.21 Acute and chronic respiratory failure with hypoxia; J69.0 Pneumonitis due to inhalation of food and vomit; I44.7 Left bundle-branch block, unspecified; D64.9 Anemia, unspecified; R57.0 Cardiogenic shock; J44.1 Chronic obstructive pulmonary disease with (acute) exacerbation; R18.8 Other ascites; R05.9 Cough, unspecified; Z79.4 Long term (current) use of insulin; N17.9 Acute kidney failure, unspecified; D61.818 Other pancytopenia; Z87.891 Personal history of nicotine dependence; K92.1 Melena; T85.628A Displacement of other specified internal prosthetic devices, implants and grafts, initial encounter; N18.9 Chronic kidney disease, unspecified; E11.22 Type 2 diabetes mellitus with diabetic chronic kidney disease; E11.649 Type 2 diabetes mellitus with hypoglycemia without coma; E66.9 Obesity, unspecified; E78.5 Hyperlipidemia, unspecified; E87.5 Hyperkalemia; D50.9 Iron deficiency anemia, unspecified; G47.33 Obstructive sleep apnea (adult) (pediatric); G89.29 Other chronic pain; K40.90 Unilateral inguinal hernia, without obstruction or gangrene, not specified as recurrent; K62.89 Other specified diseases of anus and rectum; I25.10 Atherosclerotic heart disease of native coronary artery without angina pectoris; I27.81 Cor pulmonale (chronic); I95.9 Hypotension, unspecified; M54.9 Dorsalgia, unspecified; N40.1 Benign prostatic hyperplasia with lower urinary tract symptoms; S30.812A Abrasion of penis, initial encounter; R30.0 Dysuria; R33.8 Other retention of urine; R77.8 Other specified abnormalities of plasma proteins; Z20.822 Contact with and (suspected) exposure to COVID-19; Z66 Do not resuscitate; Z68.33 Body mass index [BMI] 33.0-33.9, adult; Z71.3 Dietary counseling and surveillance; Z79.82 Long term (current) use of aspirin; Z79.899 Other long term (current) drug therapy; Z88.5 Allergy status to narcotic agent; Z88.7 Allergy status to serum and vaccine; Z95.1 Presence of aortocoronary bypass graft; Z96.0 Presence of urogenital implants; Z96.659 Presence of unspecified artificial knee joint
CPT/HCPCS: 36415; 71045; 74176; 80048; 80053; 82272; 82330; 82607; 83036; 83605; 83690; 83735; 83880; 84100; 84132; 84145; 84484; 85025; 85027; 85610; 85730; 86850; 86900; 86901; 86920; 87150; 87493; 87633; 87635; 93005; 93306; 94640; 96365; 96366; 96375; 96376; 97162; 97165; 99285; A9270; J1250; J1815; J2060; J7613; P9016; Q9967; 82803

== ENCOUNTER → 2022-10-26 | Outpatient (CLI) | payer MEDICARE, OTHER | END | disposition critical access hospital (66) | LOC: EMS 14:45 | DX: R04.2 Hemoptysis (principal); R06.02 Shortness of breath; R19.5 Other fecal abnormalities; R53.1 Weakness; R42 Dizziness and giddiness | CPT/HCPCS: A0425; A0427 ==

== ENCOUNTER 2022-11-06 02:24 | Outpatient (CLI) | payer MEDICARE, OTHER | END 2022-11-06 02:25 | disposition E | LOC: EMS 02:24 | DX: I46.9 Cardiac arrest, cause unspecified (principal) ==